=== PATIENT | male | born 1945 | race Caucasian/White ===

== ENCOUNTER 2019-01-04 05:35 | Emergency (ER) | payer OTHER ==
[~2019-01-04] VITALS: Ht 157.5 cm; Wt 68.0 kg
--- NOTE | 2019-01-04 06:07 | ED Integumentary General ---
General Chief Complaint: Skin/Wound Problems Stated Complaint: RT FOOT WOUND CHECK History of Present Illness Date Seen by Provider: Jan 04, 2019 Time Seen by Provider: 06:03 Initial Comments Patient is being taken care of by the general surgeon Dr. Meyers for a diabetic foot wound ulcer on the bottom of his foot. He says he was seen last week and a dressing was applied and it was wrapped quite tight and it has caused his foot. Painful over the weekend and he tried taking off the dressing this morning but was unable to get off as it was too tight. Even tried using scissors but was unable to get underneath the dressing. He is scheduled to follow with Dr. Meyers later this week and his wound care clinic. He denies worsening redness swelling fevers chills nausea vomiting or other systemic symptoms. Allergies and Home Medications Patient Home Medication List Home Medication List Reviewed: Yes Review of Systems Review of Systems Constitutional: No fever Skin: lesions Past Kwuxqdd-Wcomne-Hkqgfq Hx Patient Social History Alcohol Use: Denies Use Recreational Drug Use: No Smoking Status: Never a Smoker 2nd Hand Smoke Exposure: No Recent Foreign Travel: No Contact w/Someone Who Travel: No Recent Hopitalizations: No Physical Abuse: No Sexual Abuse: No Mistreated: No Fear: No Seasonal Allergies Seasonal Allergies: No Past Medical History Surgeries: Yes Cardiac: No Neurological: No Genitourinary: No Gastrointestinal: No Musculoskeletal: No Endocrine: Yes Diabetes, Insulin dep HEENT: No Cancer: No Psychosocial: No Integumentary: Yes (diabetic ulcers) Blood Disorders: No Adverse Reaction/Blood Tranf: No Physical Exam Vital Signs Capillary Refill : General Appearance: WD/WN, no apparent distress Skin: other (diabetic foot ulcer on the bottom of his foot appears to be healing well with no warmth or tenderness to palpation. No signs of fluctuance or signs of cellulitis.) Progress/Results/Core Measures Progress Progress Note : Progress Note Patient's foot was redressed with a looser dressing and he was told to follow Dr. Berry as scheduled but to go ahead and give Dr. Edmondson call today to let him know his issues and see if there is any more urgent follow-up needed or other recommendations. Patient aware and agreeable with plan patient was discharged in stable condition. Departure Impression Primary Impression: Diabetic foot ulcer Disposition: HOME, SELF-CARE Condition: Stable Departure-Patient Inst. Referrals: SUSAN MELENDREZ DO (PCP/Family) Primary Care Physician Patient Instructions: Diabetic Foot Ulcer (DC) CRISTOBAL BLACKMAN DO Jan 04, 2019 06:07
[2019-01-04 06:17] VITALS: BP 145/72
== END 2019-01-04 06:17 | disposition home or self-care (01) ==
LOC: EDUNIT# 05:35 → ER FS 05:39
DX: E11.621 Type 2 diabetes mellitus with foot ulcer (principal)

== ENCOUNTER 2019-05-24 09:01 | Emergency (ER) | payer MEDICARE, OTHER ==
[~2019-05-24] VITALS: Ht 162 cm; Wt 68.0 kg
--- NOTE | 2019-05-24 09:36 | ED General ---
General Chief Complaint: Skin/Wound Problems Stated Complaint: RT LEG SWELLING & PAIN Nursing Triage Note: PT HAS CHRONIC LEG EDEMA AND GETS HIS LEGS WRAPPED WEEKLY WITH DR HOFFMAN. HE HAS INCREASED EDEMA TO THE RIGHT LEG TODAY WITH EXTREMELY DRY SKIN FLAKES. PT IS ABLE TO AMBULATE WITHOUT DIFFICULTY. Nursing Sepsis Screen: No Definite Risk History of Present Illness Date Seen by Provider: May 24, 2019 Time Seen by Provider: 09:34 Initial Comments Patient presenting to emergency department for evaluation of right lower extremity swelling and erythema. He apparently has diabetes and has bad edema issues for which his legs get wrapped and he leaves the wrap on for weeks at a time until his providers can rewrap them. He was being evaluated this morning and was told to come here as his right lower extremity is more swollen and red than the left. He has erythema primarily on the proximal tibia as well as scaly wounds. The wrap appeared to be very tightly on possibly cutting off venous return. Patient denies any pain fevers chills nausea vomiting or other systemic symptoms. He says he is not short of breath or having any chest pain. He is currently on clindamycin for the past 2 weeks for a dental infection and he is going to be on it for one week more until he sees his dentist. Patient is in no obvious distress with normal vital signs. Allergies and Home Medications Home Medications Hydrocortisone Acetate 28 Gm Oint...g., 28 GM TP BID Prescribed by: CRISTOBAL BLACKMAN on 05/24/19 1010 Petrolatum,White 99 Gm Oint...g., 99 GM TP QID Prescribed by: CRISTOBAL BLACKMAN on 05/24/19 1010 Patient Home Medication List Home Medication List Reviewed: Yes Review of Systems Review of Systems Constitutional: no symptoms reported EENTM: no symptoms reported Respiratory: no symptoms reported Cardiovascular: edema Gastrointestinal: no symptoms reported Skin: dryness Psychiatric/Neurological: No Symptoms Reported All Other Systems Reviewed Negative Unless Noted: Yes Past Jffelhh-Cmmczi-Kcsgcq Hx Patient Social History Alcohol Use: Denies Use Recreational Drug Use: No 2nd Hand Smoke Exposure: No Recent Foreign Travel: No Contact w/Someone Who Travel: No Recent Infectious Disease Expo: No Recent Hopitalizations: No Physical Abuse: No Sexual Abuse: No Mistreated: No Fear: No Seasonal Allergies Seasonal Allergies: No Past Medical History Surgeries: Yes Cardiac: No Neurological: No Genitourinary: No Gastrointestinal: No Musculoskeletal: No Endocrine: Yes Diabetes, Insulin dep HEENT: No Cancer: No Psychosocial: No Integumentary: Yes (diabetic ulcers) Blood Disorders: No Adverse Reaction/Blood Tranf: No Physical Exam Vital Signs Vital Signs - First Documented 05/24/19 09:08 Temp 36.9 Pulse 75 Resp 18 B/P (MAP) 168/78 (108) Pulse Ox 100 O2 Delivery Room Air Capillary Refill : Less Than 3 Seconds Height, Weight, BMI Height: 5'2.00" Weight: 150lbs. oz. 68.406067qr; 25.00 BMI Method:Stated General Appearance: No Apparent Distress, WD/WN HEENT: Moist Mucous Membranes Neck: Supple Respiratory: Lungs Clear, No Respiratory Distress Cardiovascular: Regular Rate, Rhythm, Other (2-3+ RLE edema. Scaly, dry skin with mild erythema at proximal tib-fib. Not confluent, warm, or tender to palpation. More of a stasis dermatitis appearance. ) Gastrointestinal: Soft Back: Normal Inspection Extremity: Normal Capillary Refill, Normal Range of Motion, Non Tender, No Calf Tenderness, Other (2+ DP pulse BL) Neurologic/Psychiatric: Alert, Oriented x3, No Motor/Sensory Deficits Skin: Warm/Dry Progress/Results/Core Measures Suspected Sepsis Recent Fever Within 48 Hours: No Infection Criteria Present: None New/Unexplained Altered Menta: No Sepsis Screen: No Definite Risk SIRS Temperature: Pulse: 75 Respiratory Rate: 18 Blood Pressure 168 /78 Mean: 108 Results/Orders My Orders Orders - CRISTOBAL BLACKMAN DO Us Venous Lower Ext Rt (05/24/19 09:36) Vital Signs/I&O 05/24/19 09:08 Temp 36.9 Pulse 75 Resp 18 B/P (MAP) 168/78 (108) Pulse Ox 100 O2 Delivery Room Air Capillary Refill : Less Than 3 Seconds Blood Pressure Mean: 108 POS Progress Note : Progress Note I told patient that I would like to get an ultrasound to ensure this is not a DVT and he was initially okay with that the vp information technology came over and he refused. He says that he does not think it is a DVT as he feels much better after having his wrap removed and he would not like to have any further testing done but would like to be treated for the stasis dermatitis I told him about. He is already on clindamycin and I do not think this is a cellulitis based off appearance. I will have him continue elevating his legs wrapping it and applying liberal moisturizers and steroids to see if this helps his leg. I told him not to apply the wrapped too tight that it has to be tight enough to ensure venous return. Patient will be discharged in stable condition told to follow with primary care provider within 2 days to ensure improvement and come back to the ED sooner if worsening pain fevers shortness of breath or other general concerns. Patient aware and agreeable with plan and verbalized understanding of the above instructions. Departure Impression Primary Impression: Stasis dermatitis Qualified Codes: I87.2 - Venous insufficiency (chronic) (peripheral) Disposition: HOME, SELF-CARE Condition: Stable Departure-Patient Inst. Referrals: SUSAN MELENDREZ DO (PCP/Family) Primary Care Physician Scripts Hydrocortisone Acetate (Hydrocortisone) 28 Gm Oint...g. 28 GM TP BID for 14 Days, #2 TUBE Prov: CRISTOBAL BLACKMAN DO 05/24/19 Petrolatum,White (Aquaphor) 99 Gm Oint...g. 99 GM TP QID for 14 Days, #4 TUBE Prov: CRISTOBAL BLACKMAN DO 05/24/19 CRISTOBAL BLACKMAN DO May 24, 2019 09:36 POS
[2019-05-24] MEDS ORDERED: MINE99OI TP (10:10)
[2019-05-24] MEDS ORDERED: HYDR28OI2 TP (10:10)
[2019-05-24 10:27] VITALS: BP 114/68
== END 2019-05-24 10:27 | disposition home or self-care (01) ==
LOC: EDUNIT# 09:01 → ER FS 09:03
DX: I87.2 Venous insufficiency (chronic) (peripheral) (principal); E11.9 Type 2 diabetes mellitus without complications
CPT/HCPCS: 99282

== ENCOUNTER 2019-06-07 12:59 | Emergency (ER) | payer MEDICARE ==
[~2019-06-07] VITALS: Ht 175 cm; Wt 52.0 kg
[~2019-06-07 12:59] MED LIST: HYDR28OI2 TP; MINE99OI TP
--- NOTE | 2019-06-07 13:04 | ED Lower Extremity ---
General Stated Complaint: LEG SWELLING Source: patient Exam Limitations: no limitations History of Present Illness Date Seen by Provider: Jun 07, 2019 Time Seen by Provider: 13:03 Initial Comments 74-year-old male brought in with bilateral lower leg swelling. Patient has a history of venous stasis, and lymphedema. Comes in today because he is having some more swelling and some tenderness after his legs be in wrapped 2 days ago. He reports normally they go higher up to his knees but daily went to mid calf this time. He has no chest pain or significant acute changes. Patient reports that he is prescribed Lasix but has not been taking it. No other symptoms at this time Allergies and Home Medications Home Medications Hydrocortisone Acetate 28 Gm Oint...g., 28 GM TP BID Prescribed by: CRISTOBAL BLACKMAN on 05/24/19 1010 Petrolatum,White 99 Gm Oint...g., 99 GM TP QID Prescribed by: CRISTOBAL BLACKMAN on 05/24/19 1010 Patient Home Medication List Home Medication List Reviewed: Yes Review of Systems Constitutional: see HPI Respiratory: No cough Cardiovascular: No chest pain Gastrointestinal: No no symptoms reported Musculoskeletal: see HPI Skin: see HPI Past Ejphucm-Orgzug-Fhesvx Hx Past Med/Social Hx: Reviewed Nursing Past Med/Soc Hx Patient Social History 2nd Hand Smoke Exposure: No Recent Foreign Travel: Yes Recent Hopitalizations: No Seasonal Allergies Seasonal Allergies: No Past Medical History Surgeries: Yes Cardiac: No Neurological: No Genitourinary: No Gastrointestinal: No Musculoskeletal: No Endocrine: Yes Diabetes, Insulin dep HEENT: No Cancer: No Psychosocial: No Integumentary: Yes (diabetic ulcers) Blood Disorders: No Adverse Reaction/Blood Tranf: No Physical Exam Vital Signs Vital Signs - First Documented 06/07/19 13:00 Temp 37.3 Pulse 60 Resp 20 B/P (MAP) 145/70 (95) Pulse Ox 99 Capillary Refill : Height, Weight, BMI Height: 5'2.00" Weight: 150lbs. oz. 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, normal mood/affect, oriented x 3 Progress/Results/Core Measures Results/Orders Lab Results Laboratory Tests Test 06/07/19 13:23 Range/Units White Blood Count 5.9 4.3-11.0 10^3/uL Red Blood Count 3.05 L 4.35-5.85 10^6/uL Hemoglobin 9.9 L 13.3-17.7 G/DL Hematocrit 29 L 40-54 % Mean Corpuscular Volume 95 80-99 FL Mean Corpuscular Hemoglobin 32 25-34 PG Mean Corpuscular Hemoglobin Concent 34 32-36 G/DL Red Cell Distribution Width 14.3 10.0-14.5 % Platelet Count 246 130-400 10^3/uL Mean Platelet Volume 9.1 7.4-10.4 FL Neutrophils (%) (Auto) 77 H 42-75 % Lymphocytes (%) (Auto) 13 12-44 % Monocytes (%) (Auto) 7 0-12 % Eosinophils (%) (Auto) 3 0-10 % Basophils (%) (Auto) 0 0-10 % Neutrophils # (Auto) 4.5 1.8-7.8 X 10^3 Lymphocytes # (Auto) 0.8 L 1.0-4.0 X 10^3 Monocytes # (Auto) 0.4 0.0-1.0 X 10^3 Eosinophils # (Auto) 0.2 0.0-0.3 10^3/uL Basophils # (Auto) 0.0 0.0-0.1 10^3/uL Sodium Level 139 135-145 MMOL/L Potassium Level 4.8 3.6-5.0 MMOL/L Chloride Level 106 98-107 MMOL/L Carbon Dioxide Level 24 21-32 MMOL/L Anion Gap 9 5-14 MMOL/L Blood Urea Nitrogen 19 H 7-18 MG/DL Creatinine 1.62 H 0.60-1.30 MG/DL Estimat Glomerular Filtration Rate 42 BUN/Creatinine Ratio 12 Glucose Level 91 70-105 MG/DL Calcium Level 9.0 8.5-10.1 MG/DL Magnesium Level 2.1 1.6-2.4 MG/DL My Orders Orders - KITTY MORRIS DO Basic Metabolic Panel (06/07/19 13:04) Cbc With Automated Diff (06/07/19 13:04) Magnesium (06/07/19 13:04) Vital Signs/I&O 06/07/19 13:00 Temp 37.3 Pulse 60 Resp 20 B/P (MAP) 145/70 (95) Pulse Ox 99 Departure Impression Primary Impression: Stasis dermatitis Qualified Codes: I87.2 - Venous insufficiency (chronic) (peripheral) Additional Impressions: Peripheral edema Edema of both lower legs due to peripheral venous insufficiency Disposition: HOME, SELF-CARE Condition: Stable Departure-Patient Inst. Referrals: SUSAN MELENDREZ DO (PCP/Family) Primary Care Physician Patient Instructions: Dermatitis, Swelling, Dependent Edema (DC) Scripts Furosemide (Lasix) 40 Mg Tablet 40 MG PO DAILY, #5 TAB Prov: KITTY MORRIS DO 06/07/19 KITTY MORRIS DO Jun 07, 2019 13:03 POS
[2019-06-07 13:31] LABS: HEMATOCRIT 29 % (40-54); HEMOGLOBIN 9.9 G/DL (13.3-17.7); MEAN CORPUSCULAR HEMOGLOBIN 32 PG (25-34); MEAN CORPUSCULAR VOLUME 95 FL (80-99); WHITE BLOOD COUNT 5.9 10^3/uL (4.3-11.0)
[2019-06-07 13:32] LABS: BASOPHILS % (AUTO) 0 % (0-10); EOSINOPHILS % (AUTO) 3 % (0-10); LYMPHOCYTES % (AUTO) 13 % (12-44); MEAN CORPUSCULAR HGB CONC 34 G/DL (32-36); MEAN PLATELET VOLUME 9.1 FL (7.4-10.4); MONOCYTES % (AUTO) 7 % (0-12); NEUTROPHILS % (AUTO) 77 % (42-75); PLATELET COUNT 246 10^3/uL (130-400); RED CELL DISTRIBUTION WIDTH 14.3 % (10.0-14.5)
[2019-06-07 13:35] LABS: LYMPHOCYTES # (AUTO) 0.8 X 10^3 (1.0-4.0); MONOCYTES # (AUTO) 0.4 X 10^3 (0.0-1.0); NEUTROPHILS # (AUTO) 4.5 X 10^3 (1.8-7.8)
[2019-06-07 13:36] LABS: EOSINOPHILS # (AUTO) 0.2 10^3/uL (0.0-0.3)
[2019-06-07 13:58] LABS: CREATININE SERUM 1.62 MG/DL (0.60-1.30); MAGNESIUM 2.1 MG/DL (1.6-2.4); POTASSIUM 4.8 MMOL/L (3.6-5.0)
[2019-06-07] MEDS ORDERED: FURO-124 PO (14:09)
--- NOTE | 2019-06-07 14:30 | NUR ---
Bilateral lower legs wrapped with gauze and coban.
[2019-06-07 14:37] VITALS: BP 152/97
== END 2019-06-07 14:45 | disposition home or self-care (01) ==
LOC: EDUNIT# 12:59 → ER FS 13:00
DX: I87.2 Venous insufficiency (chronic) (peripheral) (principal); E11.622 Type 2 diabetes mellitus with other skin ulcer
CPT/HCPCS: 36415; 80048; 83735; 85025

== ENCOUNTER → 2020-05-04 | Outpatient (CLI) | payer MEDICARE ==
[~2020-05-04] MED LIST changes: +FURO-124 PO
[2020-05-04 12:01] LABS: BASOPHILS % (AUTO) 0 % (0-10); EOSINOPHILS # (AUTO) 0.2 10^3/uL (0.0-0.3); EOSINOPHILS % (AUTO) 4 % (0-10); HEMATOCRIT 36 % (40-54); HEMOGLOBIN 12.6 g/dL (13.3-17.7); LYMPHOCYTES % (AUTO) 17 % (12-44); MEAN CORPUSCULAR HEMOGLOBIN 33 pg (25-34); MEAN CORPUSCULAR HGB CONC 35 g/dL (32-36); MEAN CORPUSCULAR VOLUME 95 fL (80-99); MEAN PLATELET VOLUME 9.1 fL (9.0-12.2); MONOCYTES # (AUTO) 0.4 10^3/uL (0.0-1.0); MONOCYTES % (AUTO) 7 % (0-12); NEUTROPHILS # (AUTO) 4.2 10^3/uL (1.8-7.8); NEUTROPHILS % (AUTO) 72 % (42-75); PLATELET COUNT 178 10^3/uL (130-400); WHITE BLOOD COUNT 5.8 10^3/uL (4.3-11.0)
== END ==
LOC: WOUNDCARE 09:25
PROVIDERS: ATTEND Surgery
DX: I87.323 Chronic venous hypertension (idiopathic) with inflammation of bilateral lower extremity (principal); I70.203 Unspecified atherosclerosis of native arteries of extremities, bilateral legs; E11.42 Type 2 diabetes mellitus with diabetic polyneuropathy; M14.671 Charcot's joint, right ankle and foot; M14.672 Charcot's joint, left ankle and foot
CPT/HCPCS: 83036; 85025; G0463; 36415; 99213

== ENCOUNTER → 2020-05-15 | Outpatient (CLI) | payer MEDICARE | LOC: WOUNDCARE 11:59 | PROVIDERS: ATTEND Surgery | DX: I87.333 Chronic venous hypertension (idiopathic) with ulcer and inflammation of bilateral lower extremity (principal); E11.42 Type 2 diabetes mellitus with diabetic polyneuropathy; M14.671 Charcot's joint, right ankle and foot; M14.672 Charcot's joint, left ankle and foot; I70.203 Unspecified atherosclerosis of native arteries of extremities, bilateral legs | CPT/HCPCS: 99212 ==

== ENCOUNTER 2020-07-18 19:43 | Emergency (ER) | payer MEDICARE ==
[~2020-07-18] VITALS: Ht 154.9 cm; Wt 61.2 kg
[2020-07-18 20:12] LABS: HEMATOCRIT 36 % (40-54); HEMOGLOBIN 12.5 G/DL (13.3-17.7); LYMPHOCYTES % (AUTO) 16 % (12-44); MEAN CORPUSCULAR HEMOGLOBIN 32 PG (25-34); MEAN CORPUSCULAR HGB CONC 34 G/DL (32-36); MEAN CORPUSCULAR VOLUME 94 FL (80-99); MEAN PLATELET VOLUME 9.6 FL (7.4-10.4); MONOCYTES % (AUTO) 6 % (0-12); NEUTROPHILS % (AUTO) 76 % (42-75); PLATELET COUNT 237 10^3/uL (130-400); WHITE BLOOD COUNT 7.3 10^3/uL (4.3-11.0)
[2020-07-18 20:13] LABS: BASOPHILS % (AUTO) 0 % (0-10); EOSINOPHILS # (AUTO) 0.1 10^3/uL (0.0-0.3); EOSINOPHILS % (AUTO) 2 % (0-10); LYMPHOCYTES # (AUTO) 1.2 X 10^3 (1.0-4.0); MONOCYTES # (AUTO) 0.5 X 10^3 (0.0-1.0); NEUTROPHILS # (AUTO) 5.5 X 10^3 (1.8-7.8)
--- NOTE | 2020-07-18 20:22 | ED General ---
General Stated Complaint: LATHARGY History of Present Illness Date Seen by Provider: Jul 18, 2020 Time Seen by Provider: 19:45 Initial Comments 75-year-old male presents via EMS with complaint of decreased mental status. Second call of the day regarding this patient, initially several hours ago earlier this afternoon EMS called for the same reason. Patient's girlfriend had called and on arrival patient stated that he was fine and he didn't know developed the hospital and refuse transfer. The second call was for the same co mplaint decreased mental status, somnolence and concern of taking new medication "Celexa". Allergies and Home Medications Allergies Coded Allergies: Penicillins (Verified Allergy, Unknown, 07/18/20) Sulfa (Sulfonamide Antibiotics) (Verified Allergy, Unknown, 07/18/20) Home Medications Furosemide 40 Mg Tablet, 40 MG PO DAILY Prescribed by: KITTY MORRIS on 06/07/19 1409 Hydrocortisone Acetate 28 Gm Oint...g., 28 GM TP BID Prescribed by: CRISTOBAL BLACKMAN on 05/24/19 1010 Petrolatum,White 99 Gm Oint...g., 99 GM TP QID Prescribed by: CRISTOBAL BLACKMAN on 05/24/19 1010 Patient Home Medication List Home Medication List Reviewed: Yes Review of Systems Review of Systems Constitutional: no symptoms reported (unable to obtain ROS 2 to patient decreased MS on arrival) Past Cpdzlgn-Ktllbe-Zqmfbn Hx Past Med/Social Hx: Reviewed Nursing Past Med/Soc Hx Patient Social History 2nd Hand Smoke Exposure: No Recent Hopitalizations: No Seasonal Allergies Seasonal Allergies: No Past Medical History Surgeries: Yes Cardiac: No Neurological: No Genitourinary: No Gastrointestinal: No Musculoskeletal: No Endocrine: Yes Diabetes, Insulin dep HEENT: No Cancer: No Psychosocial: No Integumentary: Yes (diabetic ulcers) Blood Disorders: No Adverse Reaction/Blood Tranf: No Physical Exam Vital Signs Vital Signs - First Documented 07/18/20 19:43 Temp 37.1 Pulse 54 Resp 14 B/P (MAP) 137/58 (84) Pulse Ox 99 O2 Delivery Room Air Capillary Refill : Height, Weight, BMI Height: 5'2.00" Weight: 150lbs. oz. 68.973988ap; 16.00 BMI Method:Stated General Appearance: No Apparent Distress, WD/WN, Other (somnulent, arousable) HEENT: PERRL/EOMI, Normal ENT Inspection Neck: Non Tender, Supple Respiratory: Chest Non Tender, Lungs Clear, Normal Breath Sounds Cardiovascular: Regular Rate, Rhythm, No Edema, No Gallop, No JVD Gastrointestinal: Non Tender, Soft, Hernia (large inguinal hernia- left) Back: Normal Inspection, No CVA Tenderness, No Vertebral Tenderness Extremity: Normal Capillary Refill, Non Tender, Swelling (chronic edema b/l LE's) Neurologic/Psychiatric: No Motor/Sensory Deficits, Other (decreased MS, s omnulent but arousable. Eventually answers all questions and is without significant complaint) Focused Exam Lactate Level 07/18/20 20:00: Lactic Acid Level 1.10 Lactic Acid Level Laboratory Tests Test 07/18/20 20:00 Lactic Acid Level 1.10 MMOL/L (0.50-2.00) Progress/Results/Core Measures Suspected Sepsis SIRS Temperature: Pulse: Respiratory Rate: Laboratory Tests 07/18/20 20:00: White Blood Count 7.3 Blood Pressure / Mean: 07/18/20 20:00: Lactic Acid Level 1.10 Laboratory Tests 07/18/20 20:00: Creatinine 3.24H, Platelet Count 237, Total Bilirubin 2.3H Results/Orders Lab Results Laboratory Tests Test 07/18/20 20:00 07/18/20 20:18 Range/Units White Blood Count 7.3 4.3-11.0 10^3/uL Red Blood Count 3.88 L 4.35-5.85 10^6/uL Hemoglobin 12.5 L 13.3-17.7 G/DL Hematocrit 36 L 40-54 % Mean Corpuscular Volume 94 80-99 FL Mean Corpuscular Hemoglobin 32 25-34 PG Mean Corpuscular Hemoglobin Concent 34 32-36 G/DL Red Cell Distribution Width 12.9 10.0-14.5 % Platelet Count 237 130-400 10^3/uL Mean Platelet Volume 9.6 7.4-10.4 FL Immature Granulocyte % (Auto) 0 % Neutrophils (%) (Auto) 76 H 42-75 % Lymphocytes (%) (Auto) 16 12-44 % Monocytes (%) (Auto) 6 0-12 % Eosinophils (%) (Auto) 2 0-10 % Basophils (%) (Auto) 0 0-10 % Neutrophils # (Auto) 5.5 1.8-7.8 X 10^3 Lymphocytes # (Auto) 1.2 1.0-4.0 X 10^3 Monocytes # (Auto) 0.5 0.0-1.0 X 10^3 Eosinophils # (Auto) 0.1 0.0-0.3 10^3/uL Basophils # (Auto) 0.0 0.0-0.1 10^3/uL Immature Granulocyte # (Auto) 0.0 0.0-0.1 10^3/uL Sodium Level 139 135-145 MMOL/L Potassium Level 4.9 3.6-5.0 MMOL/L Chloride Level 101 98-107 MMOL/L Carbon Dioxide Level 24 21-32 MMOL/L Anion Gap 14 5-14 MMOL/L Blood Urea Nitrogen 44 H 7-18 MG/DL Creatinine 3.24 H 0.60-1.30 MG/DL Estimat Glomerular Filtration Rate 19 BUN/Creatinine Ratio 14 Glucose Level 119 H 70-105 MG/DL Lactic Acid Level 1.10 0.50-2.00 MMOL/L Calcium Level 9.4 8.5-10.1 MG/DL Corrected Calcium 9.2 8.5-10.1 MG/DL Total Bilirubin 2.3 H 0.1-1.0 MG/DL Aspartate Amino Transf (AST/SGOT) 15 5-34 U/L Alanine Aminotransferase (ALT/SGPT) 10 0-55 U/L Alkaline Phosphatase 75 40-136 U/L Total Protein 7.0 6.4-8.2 GM/DL Albumin 4.2 3.2-4.5 GM/DL Serum Alcohol < 10 <10 MG/DL Urine Color YELLOW Urine Clarity CLEAR Urine pH 5.0 5-9 Urine Specific [place] 1.025 H 1.016-1.022 Urine Protein NEGATIVE NEGATIVE Urine Glucose (UA) NEGATIVE NEGATIVE Urine Ketones NEGATIVE NEGATIVE Urine Nitrite NEGATIVE NEGATIVE Urine Bilirubin NEGATIVE NEGATIVE Urine Urobilinogen 0.2 < = 1.0 MG/DL Urine Leukocyte Esterase NEGATIVE NEGATIVE Urine RBC (Auto) TRACE H NEGATIVE Urine RBC RARE /HPF Urine WBC NONE /HPF Urine Crystals PRESENT H /LPF Urine Amorphous Sediment FEW IRMA URATES H /LPF Urine Bacteria NONE /HPF Urine Casts PRESENT /LPF Urine Hyaline Casts 5-10 H /LPF Urine Mucus NEGATIVE /LPF Urine Culture Indicated NO Urine Opiates Screen NEGATIVE NEGATIVE Urine Oxycodone Screen NEGATIVE NEGATIVE Urine Methadone Screen NEGATIVE NEGATIVE Urine Propoxyphene Screen NEGATIVE NEGATIVE Urine Barbiturates Screen NEGATIVE NEGATIVE Ur Tricyclic Antidepressants Screen NEGATIVE NEGATIVE Urine Phencyclidine Screen NEGATIVE NEGATIVE Urine Amphetamines Screen NEGATIVE NEGATIVE Urine Methamphetamines Screen NEGATIVE NEGATIVE Urine Benzodiazepines Screen NEGATIVE NEGATIVE Urine Cocaine Screen NEGATIVE NEGATIVE Urine Cannabinoids Screen NEGATIVE NEGATIVE My Orders Orders - ROVENSTINE,ELIGIO L DO Ed Iv/Invasive Line Start (07/18/20 19:55) Blood Culture (07/18/20 19:55) Alcohol (07/18/20 19:55) Cbc With Automated Diff (07/18/20 19:55) Comprehensive Metabolic Panel (07/18/20 19:55) Urinalysis (07/18/20 19:55) Drug Screen Stat (Urine) (07/18/20 19:55) Lactic Acid Analyzer (07/18/20 19:55) Chest 1 View Ap/Pa Only (07/18/20 19:55) Ekg Tracing (07/18/20 19:55) Ct Head Wo (07/18/20 19:55) [place] Cath (07/18/20 20:38) Vital Signs/I&O 07/18/20 19:43 Temp 37.1 Pulse 54 Resp 14 B/P (MAP) 137/58 (84) Pulse Ox 99 O2 Delivery Room Air Capillary Refill : Progress Note : Progress Note patient's GF wanted to transfer to [place], but no beds available and [place] also with limited availability. Talked to Dr Nuñez who accepts for admission w avail bed at [facility]. Patient does not need dialysis. ECG Initial ECG Impression Date: Jul 18, 2020 Initial ECG Impression Time: 19:55 Initial ECG Rhythm: Normal Sinus Initial ECG Intervals: Normal Diagnostic Imaging Diagonstic Imaging: CT Comments NDICATION: Altered mental status. Confusion. FINDINGS: There is generalized cortical atrophy. Ventricles are slightly prominent consistent with atrophic changes. There are diffuse periventricular white matter changes. No evidence of intracranial hemorrhage. No extra-axial fluid collection. Basal cisterns are clear. There is no mass effect. The mastoid air cells and paranasal sinuses are clear. No calvarial fractures. IMPRESSION: Diffuse atrophy with white matter changes consistent with chronic small vessel disease. Dictated on workstation # [id number] Dict: 07/18/202043 Trans: 07/18/202045 [facility] [id number] Interpreted by: DIANN JACKSON MD Electronically signed by: FINDINGS: Portable chest. The lungs are well-aerated and clear. There is no air-trapping. The heart is upper limits of normal. There is no evidence of pulmonary edema. No pneumothorax or pleural effusions. No bony abnormalities. IMPRESSION: Mild cardiac enlargement with no acute changes noted. Dictated on workstation # [id number] Dict: 07/18/202044 Trans: 07/18/202046 [facility] [phone] Interpreted by: DIANN JACKSON MD Electronically signed by: Departure Impression Primary Impression: Altered mental state Qualified Codes: R41.82 - Altered mental status, unspecified Additional Impressions: Acute renal failure (ARF) Qualified Codes: N17.9 - Acute kidney failure, unspecified Dehydration Disposition: 02 XFER [facility] HOSP ([place]) Condition: Stable Transfer Transfer Reason: Diversion Time Spoke to Accepting Phy: 21:10 Transfer Progress Notes spoke to Dr Nuñez who accepts for transfer to [facility]......limited beds at other facilities. Departure-Patient Inst. Referrals: SUSAN MELENDREZ DO (PCP/Family) Primary Care Physician ELIGIO AVILA DO Jul 18, 2020 20:22
[2020-07-18 20:28] LABS: ALKALINE PHOSPHATASE 75 U/L (40-136); BILIRUBIN,TOTAL 2.3 MG/DL (0.1-1.0); BUN/CREATININE RATIO 14; CALCIUM 9.4 MG/DL (8.5-10.1); CARBON DIOXIDE 24 MMOL/L (21-32); CHLORIDE 101 MMOL/L (98-107); CREATININE SERUM 3.24 MG/DL (0.60-1.30); GFR ESTIMATED 19; GLUCOSE 119 MG/DL (70-105); POTASSIUM 4.9 MMOL/L (3.6-5.0); SODIUM 139 MMOL/L (135-145)
[2020-07-18 20:29] LABS: ALANINE AMINOTRANSFERASE 10 U/L (0-55); ALBUMIN 4.2 GM/DL (3.2-4.5)
[2020-07-18 20:38] LABS: AMORPHOUS SEDIMENT,UR FEW AMOR URATES /LPF; BILIRUBIN,URINE NEGATIVE (NEGATIVE); CLARITY,URINE CLEAR; COLOR,URINE YELLOW; GLUCOSE, URINE (UA) NEGATIVE (NEGATIVE); KETONES,URINE NEGATIVE (NEGATIVE); LEUKOCYTE ESTERASE ,URINE NEGATIVE (NEGATIVE); NITRITE,URINE NEGATIVE (NEGATIVE); PROTEIN,URINE NEGATIVE (NEGATIVE); RBC,URINE RARE /HPF
[2020-07-18 20:39] LABS: AMPHETAMINE SCREEN, URINE NEGATIVE (NEGATIVE); BARBITURATE SCREEN URINE NEGATIVE (NEGATIVE); BENZODIAZEPINES SCREEN URINE NEGATIVE (NEGATIVE); CANNABINOID SCREEN, URINE NEGATIVE (NEGATIVE); COCAINE SCREEN URINE NEGATIVE (NEGATIVE); METHADONE STAT NEGATIVE (NEGATIVE); METHAMPHETAMINE SCREEN URINE S NEGATIVE (NEGATIVE); OPIATE SCREEN URINE NEGATIVE (NEGATIVE); OXYCODONE STAT NEGATIVE (NEGATIVE); PROPOXYPHENE STAT NEGATIVE (NEGATIVE); TRICYCLIC ANTIDEPRESSANTS SCRE NEGATIVE (NEGATIVE)
--- NOTE | 2020-07-18 20:46 | Diagnostic Imaging Report ---
PROCEDURE: CT head without contrast. TECHNIQUE: Multiple contiguous axial images were obtained through the brain without the use of intravenous contrast. Auto Exposure Controls were utilized during the CT exam to meet ALARA standards for radiation dose reduction. INDICATION: Altered mental status. Confusion. FINDINGS: There is generalized cortical atrophy. Ventricles are slightly prominent consistent with atrophic changes. There are diffuse periventricular white matter changes. No evidence of intracranial hemorrhage. No extra-axial fluid collection. Basal cisterns are clear. There is no mass effect. The mastoid air cells and paranasal sinuses are clear. No calvarial fractures. IMPRESSION: Diffuse atrophy with white matter changes consistent with chronic small vessel disease. Dictated by: Dictated on workstation # [id number]
--- NOTE | 2020-07-18 20:47 | Diagnostic Imaging Report ---
INDICATION: Altered mental status. FINDINGS: Portable chest. The lungs are well-aerated and clear. There is no air-trapping. The heart is upper limits of normal. There is no evidence of pulmonary edema. No pneumothorax or pleural effusions. No bony abnormalities. IMPRESSION: Mild cardiac enlargement with no acute changes noted. Dictated by: Dictated on workstation # [id number]
[2020-07-18] MEDS ORDERED: NS IV 1000 ML 1,000 ML IV SCH (21:15)
[2020-07-18 22:26] VITALS: BP 114/53
== END 2020-07-18 22:26 | disposition short-term general hospital (02) ==
LOC: ER FS 19:43 → EDUNIT# 19:43 → ER FS 22:26
DX: R41.82 Altered mental status, unspecified (principal); N17.9 Acute kidney failure, unspecified; E86.0 Dehydration; R60.0 Localized edema; E11.9 Type 2 diabetes mellitus without complications; Z79.4 Long term (current) use of insulin; Z86.31 Personal history of diabetic foot ulcer; Z88.0 Allergy status to penicillin; Z88.2 Allergy status to sulfonamides
CPT/HCPCS: 36415; 51702; 70450; 71045; 80053; 80306; 81000; 83605; 85025; 87040; 93005; 99284; G0480; 80320

== ENCOUNTER 2020-11-03 11:03 | Emergency (ER) | payer MEDICARE ==
[~2020-11-03] VITALS: Ht 162.5 cm; Wt 63.5 kg
--- NOTE | 2020-11-03 11:14 | ED General ---
General Stated Complaint: VOMITING; TOE WOUND; AMS; LETHARGY History of Present Illness Date Seen by Provider: Nov 03, 2020 Time Seen by Provider: 11:05 Initial Comments 75-year-old male arrives by EMS..... They were called because he was on his couch and could not get up and stated that he had soiled himself. On arrival he was on his couch he had vomited and had a bowel movement and was too weak to stand up. Brought for evaluation for weakness. Also some concerns from the landlord at the building where he lives independently in an apartment stating that he has been threatening to others that he was going to shoot them and he does have guns in his home. He is without complaint on arrival Allergies and Home Medications Allergies Coded Allergies: Penicillins (Verified Allergy, Unknown, 07/18/20) Sulfa (Sulfonamide Antibiotics) (Verified Allergy, Unknown, 07/18/20) Home Medications Furosemide 40 Mg Tablet, 40 MG PO DAILY Prescribed by: KITTY MORRIS on 06/07/19 1409 Hydrocortisone Acetate 28 Gm Oint...g., 28 GM TP BID Prescribed by: CRISTOBAL BLACKMAN on 05/24/19 1010 Petrolatum,White 99 Gm Oint...g., 99 GM TP QID Prescribed by: CRISTOBAL BLACKMAN on 05/24/19 1010 Patient Home Medication List Home Medication List Reviewed: Yes Review of Systems Review of Systems Constitutional: No dizziness, No fever, No malaise; weakness Respiratory: No cough, No short of breath Cardiovascular: No chest pain; edema (chronic LE edema); No syncope Gastrointestinal: No abdominal pain, No constipation, No loss of appetite; nausea, vomiting Musculoskeletal: No back pain, No joint pain Skin: No change in color, No rash Psychiatric/Neurological: Denies Numbness, Denies Paresthesia; Weakness Past Mefgwrl-Uudszr-Qetvsg Hx Past Med/Social Hx: Reviewed Nursing Past Med/Soc Hx Patient Social History 2nd Hand Smoke Exposure: No Recent Hopitalizations: No Seasonal Allergies Seasonal Allergies: No Past Medical History Surgeries: Yes Respiratory: No Cardiac: No Neurological: No Genitourinary: Yes (Hernia in the scrotum) Renal Failure Gastrointestinal: No Musculoskeletal: No Endocrine: Yes Diabetes, Insulin dep HEENT: No Cancer: No Psychosocial: No Integumentary: Yes (diabetic ulcers) Blood Disorders: No Adverse Reaction/Blood Tranf: No Physical Exam Vital Signs Vital Signs - First Documented 11/03/20 11:16 Temp 36.8 Pulse 68 Resp 18 B/P (MAP) 167/83 (111) Pulse Ox 98 O2 Delivery Room Air Capillary Refill : Height, Weight, BMI Height: 5'2.00" Weight: 150lbs. oz. 68.811499wv; 25.00 BMI Method:Stated General Appearance: No Apparent Distress, WD/WN, Other (disheveled and smells due to poor hygiene.) Eyes: Bilateral Eye Normal Inspection, Bilateral Eye PERRL, Bilateral Eye EOMI HEENT: PERRL/EOMI, Normal ENT Inspection Neck: Full Range of Motion, Non Tender, Supple Respiratory: Chest Non Tender, Lungs Clear, Normal Breath Sounds, No Accessory Muscle Use, No Respiratory Distress Cardiovascular: Regular Rate, Rhythm, No JVD, Other (chronic LE lymphedema) Gastrointestinal: Normal Bowel Sounds, Non Tender, Soft Back: Normal Inspection, No CVA Tenderness Neurologic/Psychiatric: Alert, Oriented x3, No Motor/Sensory Deficits, Normal Mood/Affect, diamond sizer II-XII Norm as Tested Skin: Normal Color, Warm/Dry Focused Exam Lactate Level 11/03/20 11:20: Lactic Acid Level 1.24 Lactic Acid Level Laboratory Tests Test 11/03/20 11:20 Lactic Acid Level 1.24 MMOL/L (0.50-2.00) Progress/Results/Core Measures Suspected Sepsis SIRS Temperature: Pulse: Respiratory Rate: Laboratory Tests 11/03/20 11:20: White Blood Count 15.7H Blood Pressure / Mean: 11/03/20 11:20: Lactic Acid Level 1.24 Laboratory Tests 11/03/20 11:20: Creatinine 2.13H, Platelet Count 147, Total Bilirubin 2.3H Results/Orders Lab Results Laboratory Tests Test 11/03/20 11:20 Range/Units White Blood Count 15.7 H 4.3-11.0 10^3/uL Red Blood Count 3.82 L 4.35-5.85 10^6/uL Hemoglobin 12.7 L 13.3-17.7 G/DL Hematocrit 36 L 40-54 % Mean Corpuscular Volume 94 80-99 FL Mean Corpuscular Hemoglobin 33 25-34 PG Mean Corpuscular Hemoglobin Concent 35 32-36 G/DL Red Cell Distribution Width 13.2 10.0-14.5 % Platelet Count 147 130-400 10^3/uL Mean Platelet Volume 9.5 7.4-10.4 FL Immature Granulocyte % (Auto) 1 % Neutrophils (%) (Auto) 93 H 42-75 % Lymphocytes (%) (Auto) 2 L 12-44 % Monocytes (%) (Auto) 4 0-12 % Eosinophils (%) (Auto) 0 0-10 % Basophils (%) (Auto) 0 0-10 % Neutrophils # (Auto) 14.6 H 1.8-7.8 X 10^3 Lymphocytes # (Auto) 0.4 L 1.0-4.0 X 10^3 Monocytes # (Auto) 0.6 0.0-1.0 X 10^3 Eosinophils # (Auto) 0.0 0.0-0.3 10^3/uL Basophils # (Auto) 0.0 0.0-0.1 10^3/uL Immature Granulocyte # (Auto) 0.1 0.0-0.1 10^3/uL Neutrophils % (Manual) 74 % Lymphocytes % (Manual) 5 % Monocytes % (Manual) 3 % Band Neutrophils 18 % Blood Morphology Comment NORMAL Sodium Level 140 135-145 MMOL/L Potassium Level 4.8 3.6-5.0 MMOL/L Chloride Level 106 98-107 MMOL/L Carbon Dioxide Level 23 21-32 MMOL/L Anion Gap 11 5-14 MMOL/L Blood Urea Nitrogen 40 H 7-18 MG/DL Creatinine 2.13 H 0.60-1.30 MG/DL Estimat Glomerular Filtration Rate 30 BUN/Creatinine Ratio 19 Glucose Level 168 H 70-105 MG/DL Lactic Acid Level 1.24 0.50-2.00 MMOL/L Calcium Level 9.2 8.5-10.1 MG/DL Corrected Calcium 9.0 8.5-10.1 MG/DL Total Bilirubin 2.3 H 0.1-1.0 MG/DL Aspartate Amino Transf (AST/SGOT) 20 5-34 U/L Alanine Aminotransferase (ALT/SGPT) 10 0-55 U/L Alkaline Phosphatase 75 40-136 U/L Troponin I < 0.30 <0.30 NG/ML Total Protein 7.2 6.4-8.2 GM/DL Albumin 4.2 3.2-4.5 GM/DL Serum Alcohol < 10 <10 MG/DL My Orders Orders - MARGARITAELIGIO L DO Ed Iv/Invasive Line Start (11/03/20 11:25) Urinalysis (11/03/20 11:25) Chest 1 View Ap/Pa Only (11/03/20 11:25) Troponin I Fs (11/03/20 11:25) Cbc With Automated Diff (11/03/20 11:25) Comprehensive Metabolic Panel (11/03/20 11:25) Lactic Acid Analyzer (11/03/20 11:25) Alcohol (11/03/20 11:25) Ns Iv 1000 Ml (Sodium Chloride 0.9%) (11/03/20 11:30) Manual Differential (11/03/20 11:20) Vital Signs/I&O 11/03/20 11:16 Temp 36.8 Pulse 68 Resp 18 B/P (MAP) 167/83 (111) Pulse Ox 98 O2 Delivery Room Air Capillary Refill : Progress Note : Progress Note Went to discuss possible admission of patient for long-term placement as patient was unable to get up, being the reason for his ER visit. He states, "now I feel fine" and wants to go home. Patient given a trial to walk with a walker in the hallway and was able to get up from the bed use a walker out of the room intermediate down the hallway turn himself around and go back to the room without any difficulty. Determined he is able to get up and care for himself. Patient shows normal cognition with normal speech, conversation and reasoning. Date of Exam:11/03/20 CHEST 1 VIEW AP/PA ONLY INDICATION: Mental status change. Portable chest at 11:30 a.m. Heart size and pulmonary vascularity are normal. Lungs are clear. There are no effusions or pneumothoraces. IMPRESSION: Negative chest. Dictated by: Dictated on workstation # [id number] Dict: 11/03/20 1145 Trans: 11/03/20 1202 [facility] [id number] Interpreted by: EVELINA FONTANEZ MD Electronically signed by: EVELINA FONTANEZ MD 11/03/20 1202 Departure Impression Primary Impression: Weakness Additional Impressions: Physical debility CRF (chronic renal failure) Qualified Codes: N18.9 - Chronic kidney disease, unspecified Disposition: HOME, SELF-CARE Condition: Improved Departure-Patient Inst. Decision time for Depature: 13:01 Referrals: SUSAN MELENDREZ DO (PCP/Family) Primary Care Physician Patient Instructions: Chronic Kidney Disease (DC), Weakness ED Add. Discharge Instructions: Call Dr Melendrez to schedule a follow up appointment next week. Call 911 if your are in any trouble and unable to get up. You may need daily home health care or eventually assisted living arrangement. Scripts Ondansetron (Ondansetron Odt) 4 Mg Tab.rapdis 4 MG PO TID for Nausea, #10 TAB Prov: ELIGIO AVILA DO 11/03/20 ELIGIO AVILA DO Nov 03, 2020 11:13
[2020-11-03] MEDS ORDERED: NS IV 1000 ML 1,000 ML IV SCH (11:30)
--- NOTE | 2020-11-03 11:47 | Diagnostic Imaging Report ---
INDICATION: Mental status change. Portable chest at 11:30 a.m. Heart size and pulmonary vascularity are normal. Lungs are clear. There are no effusions or pneumothoraces. IMPRESSION: Negative chest. Dictated by: Dictated on workstation # [id number]
[2020-11-03 11:55] LABS: BASOPHILS % (AUTO) 0 % (0-10); EOSINOPHILS % (AUTO) 0 % (0-10); HEMATOCRIT 36 % (40-54); HEMOGLOBIN 12.7 G/DL (13.3-17.7); LYMPHOCYTES # (AUTO) 0.4 X 10^3 (1.0-4.0); LYMPHOCYTES % (AUTO) 2 % (12-44); MEAN CORPUSCULAR HEMOGLOBIN 33 PG (25-34); MEAN CORPUSCULAR HGB CONC 35 G/DL (32-36); MEAN CORPUSCULAR VOLUME 94 FL (80-99); MEAN PLATELET VOLUME 9.5 FL (7.4-10.4); MONOCYTES # (AUTO) 0.6 X 10^3 (0.0-1.0); MONOCYTES % (AUTO) 4 % (0-12); NEUTROPHILS # (AUTO) 14.6 X 10^3 (1.8-7.8); NEUTROPHILS % (AUTO) 93 % (42-75); PLATELET COUNT 147 10^3/uL (130-400); WHITE BLOOD COUNT 15.7 10^3/uL (4.3-11.0)
[2020-11-03 12:05] LABS: CARBON DIOXIDE 23 MMOL/L (21-32); CHLORIDE 106 MMOL/L (98-107); POTASSIUM 4.8 MMOL/L (3.6-5.0); SODIUM 140 MMOL/L (135-145)
[2020-11-03 12:06] LABS: ALANINE AMINOTRANSFERASE 10 U/L (0-55); ALBUMIN 4.2 GM/DL (3.2-4.5); ALKALINE PHOSPHATASE 75 U/L (40-136); BILIRUBIN,TOTAL 2.3 MG/DL (0.1-1.0); BUN/CREATININE RATIO 19; CALCIUM 9.2 MG/DL (8.5-10.1); CREATININE SERUM 2.13 MG/DL (0.60-1.30); GFR ESTIMATED 30; GLUCOSE 168 MG/DL (70-105); TOTAL PROTEIN 7.2 GM/DL (6.4-8.2)
[2020-11-03 12:14] LABS: BAND NEUTROPHILS 18 %; LYMPHOCYTES % (MANUAL) 5 %; MONOCYTES % (MANUAL) 3 %; NEUTROPHILS % (MANUAL) 74 %; RBC MORPH NORMAL
[2020-11-03] MEDS ORDERED: ONDA4TAB11 PO (13:05)
[2020-11-03 13:07] VITALS: BP 167/77
== END 2020-11-03 13:07 | disposition home or self-care (01) ==
LOC: EDUNIT# 11:03 → ER FS 11:04
DX: R53.1 Weakness (principal); R53.81 Other malaise; E11.22 Type 2 diabetes mellitus with diabetic chronic kidney disease; N18.9 Chronic kidney disease, unspecified; Z88.0 Allergy status to penicillin; Z88.2 Allergy status to sulfonamides
CPT/HCPCS: 36415; 71045; 80053; 83605; 84484; 85007; 85027; 99284; G0480; 80320

== ENCOUNTER → 2021-02-08 | Outpatient (CLI) | payer MEDICARE ==
[~2021-02-08] MED LIST changes: +ONDA4TAB11 PO
--- NOTE | 2021-02-08 14:34 | Diagnostic Imaging Report ---
PROCEDURE: CT head without contrast. TECHNIQUE: Multiple contiguous axial images were obtained through the brain without the use of intravenous contrast. Auto Exposure Controls were utilized during the CT exam to meet ALARA standards for radiation dose reduction. INDICATION: Fall, hitting the back of the head. CORRELATION is made with prior head CT from 07/18/2020. Ventricular size and sulcal pattern remains stable and consistent with cerebral atrophy. There is periventricular hypodensity noted consistent with chronic microvascular ischemia. No sulcal effacement or midline shift is identified. No acute intra-axial or extra-axial hemorrhage is detected. Cisterns are patent. Visualized paranasal sinuses are clear. IMPRESSION: Chronic changes, stable since 07/18/2020. No acute intracranial process is detected. Dictated by: Dictated on workstation # [id number]
--- NOTE | 2021-02-08 16:11 | Diagnostic Imaging Report ---
INDICATION: Fall, pelvic pain A single view of the pelvis shows no fracture, dislocation or other acute bony abnormality. The sacroiliac joints and symphysis pubis are not widened. There are bowel loops projected over the left lower ischial region consistent with a left-sided inguinal hernia. IMPRESSION: Left-sided inguinal hernia containing a loop of bowel. No acute bony abnormality is evident. Dictated by: Dictated on workstation # [id number]
== END ==
LOC: RAD FS 13:57
PROVIDERS: ATTEND Nurse Practitioner Family
DX: K40.90 Unilateral inguinal hernia, without obstruction or gangrene, not specified as recurrent (principal); W19.XXXA Unspecified fall, initial encounter
CPT/HCPCS: 70450; 72170

== ENCOUNTER 2021-04-10 07:45 | Emergency (ER) | payer MEDICARE ==
[~2021-04-10] VITALS: Ht 177 cm; Wt 65.0 kg
[~2021-04-10 07:45] MED LIST changes: +AMLO-251 PO; +CITA20TA9 PO; +CLN.1T PO; +METO2.5T PO; +POTA10TA PO
--- NOTE | 2021-04-10 08:03 | ED Fall/Injury ---
General Chief Complaint: Back Problems Stated Complaint: LWR BACK PAIN Nursing Triage Note: PT FELL THIS AM AND HIT HIS RIGHT UPPER BACK AND SHOULDER ON THE FLOOR. CHRONIC FALLS AND EMS GOES OVER FOR LIFT ASSISTS OFTEN. Source: patient, EMS Exam Limitations: no limitations History of Present Illness Date Seen by Provider: Apr 10, 2021 Time Seen by Provider: 07:45 Initial Comments 76-year-old male with past medical history of diabetes, hypertension, dementia coming in via EMS after a fall at home. He does not fall and frequently, typically uses a cane for assistance. Says he got tripped up and fell backwards hitting the back of his head and right shoulder. Complaining of moderate, con stant sharp pain worse in his right shoulder better when he is not moving and worse with movement. Has not taken any medications. He had one episode of nonbloody nonbilious emesis after falling and has not had any since. Is not currently nauseous. Denies taking any blood thinners. Says he has been eating and drinking normally. Denies any chest pain, shortness of breath, abdominal pain, current nausea, diarrhea, dysuria, urinary frequency, focal weakness or numbness, vision changes, or any other concerns. EMS started an IV and given 1 L of IV fluids Allergies and Home Medications Allergies Coded Allergies: Penicillins (Verified Allergy, Unknown, 07/18/20) Sulfa (Sulfonamide Antibiotics) (Verified Allergy, Unknown, 07/18/20) Patient Home Medication List Home Medication List Reviewed: Yes Amlodipine Besylate (Amlodipine Besylate) 10 Mg Tablet, 10 MG PO DAILY Prescribed by: TOBY RIBERA on 02/21/21 0931 Citalopram Hydrobromide (Citalopram HBr) 20 Mg Tablet, 20 MG PO DAILY, (Repo rted) Entered as Reported by: MOY HUDDLESTON on 02/19/21 1624 Review of Systems Review of Systems Constitutional: No chills, No fever Eyes: Denies Blurred Vision Ears, Nose, Mouth, Throat: denies epistaxis, denies throat pain Cardiovascular: No chest pain, No palpitations Gastrointestinal: No abdominal pain, No constipation, No diarrhea, No nausea; vomiting Genitourinary: No dysuria Musculoskeletal: back pain, joint pain Skin: No rash Psychiatric/Neurological: No Symptoms Reported All Other Systems Reviewed Negative Unless Noted: Yes Past Kzhrdxo-Xhhlgy-Qmttwo Hx Patient Social History Tobacco Use?: No Use of E-Cig and/or Vaping dev: No Substance use?: No Alcohol Use?: No Pt feels they are or have been: No Seasonal Allergies Seasonal Allergies: No Past Medical History Surgeries: Yes Respiratory: No Cardiac: No Hypertension Neurological: No Genitourinary: Yes (Hernia in the scrotum) Renal Failure Gastrointestinal: No Musculoskeletal: No Endocrine: Yes Diabetes, Insulin dep HEENT: No Cancer: No Psychosocial: No Integumentary: Yes (diabetic ulcers) Blood Disorders: No Adverse Reaction/Blood Tranf: No Family Medical History No Pertinent Family Hx Physical Exam Vital Signs Vital Signs - First Documented 04/10/21 07:45 Temp 36.7 Pulse 73 Resp 18 B/P (MAP) 154/66 (95) Pulse Ox 98 O2 Delivery Room Air Capillary Refill : Less Than 3 Seconds Height, Weight, BMI Height: 5'2.00" Weight: 150lbs. oz. 68.958723hi; 20.00 BMI Method:Stated General Appearance: WD/WN, no apparent distress HEENT: PERRL/EOMI, normal ENT inspection, TMs normal, pharynx normal, other (Tongue and lips are dry) Neck: full range of motion, supple, normal inspection, other (very mild paraspinal tenderness cervical and thoracic) Cardiovascular: regular rate, rhythm, no edema, no gallop, no JVD, no murmur Respiratory: chest non-tender, lungs clear, normal breath sounds, no respiratory distress, no accessory muscle use Gastrointestinal: normal bowel sounds, non tender, soft; No distended, No guarding, No rebound Back: normal inspection, no CVA tenderness, no vertebral tenderness, other (paravertebral tenderness thoracic) Extremities: normal range of motion, normal inspection, no calf tenderness, normal capillary refill, other (pain with aROM of R shoulder but has full ROM, most tenderness along scapular spine) Neurologic/Psychiatric: child welfare counselor II-XII nml as tested, no motor/sensory deficits, alert, normal mood/affect, oriented x 3 Skin: normal color, warm/dry Lymphatic: no adenopathy Kit Coma Score Best Eye Response: (4) Open Spontaneously Best Verbal Response: (5) Oriented Best Motor Response: (6) Obeys Commands [place] Total: 15 Progress/Results/Core Measures Results/Orders Lab Results Laboratory Tests Test 04/10/21 08:05 Range/Units White Blood Count 8.5 4.3-11.0 10^3/uL Red Blood Count 3.36 L 4.30-5.52 10^6/uL Hemoglobin 11.3 L 13.3-17.7 g/dL Hematocrit 34 L 40-54 % Mean Corpuscular Volume 100 H 80-99 fL Mean Corpuscular Hemoglobin 34 25-34 pg Mean Corpuscular Hemoglobin Concent 34 32-36 g/dL Red Cell Distribution Width 14.8 H 10.0-14.5 % Platelet Count 223 130-400 10^3/uL Mean Platelet Volume 9.1 9.0-12.2 fL Immature Granulocyte % (Auto) 0 % Neutrophils (%) (Auto) 92 H 42-75 % Lymphocytes (%) (Auto) 4 L 12-44 % Monocytes (%) (Auto) 4 0-12 % Eosinophils (%) (Auto) 0 0-10 % Basophils (%) (Auto) 0 0-10 % Neutrophils # (Auto) 7.8 1.8-7.8 X 10^3 Lymphocytes # (Auto) 0.3 L 1.0-4.0 X 10^3 Monocytes # (Auto) 0.3 0.0-1.0 X 10^3 Eosinophils # (Auto) 0.0 0.0-0.3 10^3/uL Basophils # (Auto) 0.0 0.0-0.1 10^3/uL Immature Granulocyte # (Auto) 0.0 0.0-0.1 10^3/uL Neutrophils % (Manual) 97 % Lymphocytes % (Manual) 2 % Monocytes % (Manual) 1 % Toxic Granulation 2+ Platelet Estimate ADEQUATE Blood Morphology Comment NORMAL Prothrombin Time 14.4 12.2-14.7 SEC INR Comment 1.1 0.8-1.4 Activated Partial Thromboplast Time 29 24-35 SEC Sodium Level 135 135-145 MMOL/L Potassium Level 4.3 3.6-5.0 MMOL/L Chloride Level 103 98-107 MMOL/L Carbon Dioxide Level 21 21-32 MMOL/L Anion Gap 11 5-14 MMOL/L Blood Urea Nitrogen 29 H 7-18 MG/DL Creatinine 1.50 H 0.60-1.30 MG/DL Estimat Glomerular Filtration Rate 46 BUN/Creatinine Ratio 19 Glucose Level 182 H 70-105 MG/DL Calcium Level 8.6 8.5-10.1 MG/DL My Orders Orders - AMMON RAPHAEL MD Basic Metabolic Panel (04/10/21 07:56) Cbc With Automated Diff (04/10/21 07:56) Protime With Inr (04/10/21 07:56) Partial Thromboplastin Time (04/10/21 07:56) Ct Head/Cervical Spine Wo (04/10/21 07:56) Ct Chest Wo (04/10/21 07:56) Shoulder 3 View Right (04/10/21 07:56) Manual Differential (04/10/21 08:05) Vital Signs/I&O 04/10/21 07:45 Temp 36.7 Pulse 73 Resp 18 B/P (MAP) 154/66 (95) Pulse Ox 98 O2 Delivery Room Air Blood Pressure Mean: 95 Progress Progress Note : Progress Note 76-year-old male with above history coming in after a mechanical fall. GCS 15, ABCs intact, and vital signs stable on presentation. Physical exam mostly notable for pain along the right scapula, pain with range of motion of right shoulder, and para vertebral tenderness in the cervical and thoracic spine with no midline tenderness. Given his age is a risk factor as well as vomiting after the fall, CT head ordered as well as CT cervical spine. He has some mild chest wall pain on the right as well as the paravertebral tenderness and therefore CT chest without contrast ordered to assess for rib fractures as well as potential spine fracture. CT head, cervical spine, and chest negative for any acute abnormalities. Right shoulder x-ray on my interpretation without any fracture but does have arthritic changes. Given Tylenol for pain control. Creatinine improved from his previous admission. Labs otherwise fairly unremarkable. The patient is at his baseline. I believe he is stable for discharge, especially given this was a mechanical fall. He was sent home with strict return precautions. Diagnostic Imaging Diagonstic Imaging: CT Plain Films/CT/US/NM/MRI: chest, c-spine, head Comments CT chest negative for acute findings. [facility] [place], [place] NAME: JOAO HARDY [facility] REC#: [id number] PT STATUS: REG ER : 1945 PHYSICIAN: AMMON RAPHAEL MD ADMIT DATE: 04/10/21/ER FS Draft Date of Exam:04/10/21 CT HEAD/CERVICAL SPINE WO PROCEDURE: CT head and CT cervical spine without contrast. TECHNIQUE: Multiple contiguous axial images were obtained through the brain and cervical spine without the use of intravenous contrast. Sagittal and coronal reformations through the cervical spine were then performed. Auto Exposure Controls were utilized during the CT exam to meet ALARA standards for radiation dose reduction. INDICATION: Fall. Trauma to the head. COMPARISON: 02/08/2021 FINDINGS: CT head: The ventricles and cortical sulci are diffusely prominent, compatible with age-related volume loss. There are confluent areas of abnormal, low attenuation in the periventricular white matter. This is consistent with chronic small vessel ischemic changes. There is no midline shift or mass-effect. No acute intra-axial hemorrhage is seen. There are no abnormal areas of increased or decreased density to suggest acute hemorrhage or edema. No extra-axial masses or collections are present. The bony calvarium is intact. The visualized paranasal sinuses are unremarkable. The mastoid air cells are clear. CT cervical spine: Evaluation static alignment shows slight grade 1 retrolisthesis at C3-C4 and slight grade 1 anterolisthesis at C4-C5. There is also exaggerated lordosis of the upper cervical spine. Findings may relate to patient positioning, as well as underlying spasm and degenerative changes. There is no evidence of jumped facets. Vertebral body heights are preserved. No acute fracture is seen. 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 There are mild multilevel degenerative changes consistent of intervertebral disc height loss with anterior and posterior disc osteophyte complex formations, as well as multilevel facet arthropathy. Pre and paravertebral soft tissue structures are unremarkable. Included portions of the lung apices are clear IMPRESSION: 1. No acute intracranial abnormality. No CT evidence of mass, acute infarct or intracranial hemorrhage. 2. Chronic small vessel ischemic changes in deep white matter. 3. No acute fracture or dislocation cervical spine. 4. Mild multilevel degenerative changes. Dictated on workstation # [id number] Dict: 04/10/21 0835 Trans: 04/10/21 0848 [id number] Interpreted by: SULEMAN WILLIS MD Electronically signed by: Departure Impression Primary Impression: Recurrent falls Additional Impression: Right shoulder pain Qualified Codes: M25.511 - Pain in right shoulder Disposition: 01 HOME, SELF-CARE Condition: Stable Departure-Patient Inst. Decision time for Depature: 09:10 Referrals: SUSAN MELENDREZ DO (PCP/Family) Primary Care Physician Patient Instructions: Shoulder Pain ED, Getting Up From a Fall Add. Discharge Instructions: You were seen in the emergency department after he tripped and fell. Pictures of your head, neck, shoulder, and back were all normal without any findings of new fracture or bleeding. Please follow-up with your primary care doctor. You have any other concerns then please come back to the ER. All discharge instructions reviewed with patient and/or family. Voiced understanding. AMMON RAPHAEL MD Apr 10, 2021 08:03
[2021-04-10 08:21] LABS: HEMOGLOBIN 11.3 g/dL (13.3-17.7); MEAN CORPUSCULAR HEMOGLOBIN 34 pg (25-34); WHITE BLOOD COUNT 8.5 10^3/uL (4.3-11.0)
[2021-04-10 08:27] LABS: HEMATOCRIT 34 % (40-54)
[2021-04-10 08:28] LABS: BASOPHILS % (AUTO) 0 % (0-10); EOSINOPHILS % (AUTO) 0 % (0-10); LYMPHOCYTES # (AUTO) 0.3 X 10^3 (1.0-4.0); LYMPHOCYTES % (AUTO) 4 % (12-44); MEAN CORPUSCULAR HGB CONC 34 g/dL (32-36); MEAN CORPUSCULAR VOLUME 100 fL (80-99); MEAN PLATELET VOLUME 9.1 fL (9.0-12.2); MONOCYTES # (AUTO) 0.3 X 10^3 (0.0-1.0); MONOCYTES % (AUTO) 4 % (0-12); NEUTROPHILS # (AUTO) 7.8 X 10^3 (1.8-7.8); NEUTROPHILS % (AUTO) 92 % (42-75); PLATELET COUNT 223 10^3/uL (130-400)
[2021-04-10 08:34] LABS: CALCIUM 8.6 MG/DL (8.5-10.1); CREATININE SERUM 1.5 MG/DL (0.60-1.30); POTASSIUM 4.3 MMOL/L (3.6-5.0)
--- NOTE | 2021-04-10 08:36 | Diagnostic Imaging Report ---
Indication: Right shoulder pain. Comparison: None Findings: 3 views of the right shoulder demonstrate loss of the subacromial space indicating a degree of the rotator cuff pathology. There is mild degenerative joint disease. There is no fracture or dislocation. No osseous lesion. Impression: Degenerative changes without fracture. Dictated by: Dictated on workstation # [id number]
--- NOTE | 2021-04-10 08:38 | Diagnostic Imaging Report ---
EXAMINATION: CT chest without contrast. TECHNIQUE: Multiple contiguous axial images were obtained through the chest without the use of intravenous contrast. All CT scans use one or more of the following dose optimizing techniques: automated exposure control, MA and/or KvP adjustment based on patient size and exam type or iterative reconstruction. HISTORY: Fall and vomiting COMPARISON: None available. FINDINGS: There is no edema or pneumonia. No pleural effusion. No pneumothorax. No suspicious nodules. There is mild atelectasis or scarring in the lung bases. There is no axillary or supraclavicular lymphadenopathy. There is no mediastinal lymphadenopathy. Heart size is normal. There are severe coronary artery calcifications. No pericardial effusion. Aorta is normal in caliber. Limited views of the upper abdomen are unremarkable. There are no suspicious osseus lesions. IMPRESSION: 1. No acute abnormality in the chest. Dictated by: Dictated on workstation # [id number]
[2021-04-10 08:41] LABS: LYMPHOCYTES % (MANUAL) 2 %; MONOCYTES % (MANUAL) 1 %; NEUTROPHILS % (MANUAL) 97 %; PLATELET ESTIMATE ADEQUATE; RBC MORPH NORMAL
[2021-04-10 08:42] LABS: TOXIC GRANULATION/VACUOLAZATIO 2+
[2021-04-10 08:43] LABS: INR 1.1 (0.8-1.4); PROTHROMBIN TIME PATIENT 14.4 SEC (12.2-14.7)
--- NOTE | 2021-04-10 08:49 | Diagnostic Imaging Report ---
PROCEDURE: CT head and CT cervical spine without contrast. TECHNIQUE: Multiple contiguous axial images were obtained through the brain and cervical spine without the use of intravenous contrast. Sagittal and coronal reformations through the cervical spine were then performed. Auto Exposure Controls were utilized during the CT exam to meet ALARA standards for radiation dose reduction. INDICATION: Fall. Trauma to the head. COMPARISON: 02/08/2021 FINDINGS: CT head: The ventricles and cortical sulci are diffusely prominent, compatible with age-related volume loss. There are confluent areas of abnormal, low attenuation in the periventricular white matter. This is consistent with chronic small vessel ischemic changes. There is no midline shift or mass-effect. No acute intra-axial hemorrhage is seen. There are no abnormal areas of increased or decreased density to suggest acute hemorrhage or edema. No extra-axial masses or collections are present. The bony calvarium is intact. The visualized paranasal sinuses are unremarkable. The mastoid air cells are clear. CT cervical spine: Evaluation static alignment shows slight grade 1 retrolisthesis at C3-C4 and slight grade 1 anterolisthesis at C4-C5. There is also exaggerated lordosis of the upper cervical spine. Findings may relate to patient positioning, as well as underlying spasm and degenerative changes. There is no evidence of jumped facets. Vertebral body heights are preserved. No acute fracture is seen. 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 There are mild multilevel degenerative changes consistent of intervertebral disc height loss with anterior and posterior disc osteophyte complex formations, as well as multilevel facet arthropathy. Pre and paravertebral soft tissue structures are unremarkable. Included portions of the lung apices are clear IMPRESSION: 1. No acute intracranial abnormality. No CT evidence of mass, acute infarct or intracranial hemorrhage. 2. Chronic small vessel ischemic changes in deep white matter. 3. No acute fracture or dislocation cervical spine. 4. Mild multilevel degenerative changes. Dictated by: Dictated on workstation # [id number]
[2021-04-10 09:12] VITALS: BP 148/68
[2021-04-10] MEDS ORDERED: ACETAMINOPHEN 500 MG TAB (TYLENOL) PO ONE (09:15)
== END 2021-04-10 10:11 | disposition home or self-care (01) ==
LOC: EDUNIT# 07:45 → ER FS 07:46
DX: M25.511 Pain in right shoulder (principal); R29.6 Repeated falls; I10 Essential (primary) hypertension; E11.9 Type 2 diabetes mellitus without complications; F03.90 Unspecified dementia, unspecified severity, without behavioral disturbance, psychotic disturbance, mood disturbance, and anxiety
CPT/HCPCS: 36415; 70450; 71250; 72125; 73030; 80048; 85007; 85027; 85610; 85730

== ENCOUNTER 2021-04-19 13:32 | Day surgery (SDC) | payer MEDICARE ==
[2021-04-19] VITALS (9 sets, daily range): BP systolic 130–174; BP diastolic 65–99
[~2021-04-19] VITALS: Ht 160 cm; Wt 71.3 kg
[2021-04-19] MEDS ORDERED: ONDANSETRON 4 MG/2 ML (SDV) Z0FRAN IVP STA (13:50)
[2021-04-19] MEDS ORDERED: PANTOPRAZOLE 40 MG (PROTONIX) VIAL IV STA (13:50)
[2021-04-19] MEDS ORDERED: NS IV 1000 ML 1,000 ML IV STA (13:50)
--- NOTE | 2021-04-19 14:00 | ED GI ---
General Chief Complaint: Abdominal/GI Problems Stated Complaint: COUGH; VOMITING; DIARRHEA Nursing Triage Note: PT REPORTS NAUSEA AND VOMITING AFTER HIS NEIGHBOR THAT HELPS HIM MADE HIM TAKE HIS LISINOPRIL AND HE VOMITED ALL NIGHT. HE ALSO STATES DIARRHEA ALL NIGHT. Source of Information: Patient, Old Records History of Present Illness Date Seen by Provider: Apr 19, 2021 Time Seen by Provider: 13:36 Initial Comments 76 yo male presents by POV for complaint of subjective fever/chills, nausea/vomiting/diarrhea since last night. He felt his problems started when he took Lisinopril pill that he reports Dr. Lester advised him to not take. He denies contact with ill people. [facility] [place]. He states that about every 15-20 minutes he was having vomiting and/or diarrhea all night long. He says his phone did not work to call Dr. Lester, his PCP. He has someone from [facility] bring him to ED. He states he has been drinking water to help try and prevent dehydration. Timing/Duration: 12-24 Hours Severity/Quality: Mild, Aching Location: Generalized Abdomen Radiation: No Radiation Activities at Onset: None Modifying Factors: Worsens With Eating Associated Symptoms: No Back Pain, No Chest Pain, No Diaphoresis; Fever/Chills (subjective), Fatigue; No Headache, No Heartburn; Nausea/Vomiting; No Rash, No Shortness of Air, No Swelling/Mass in Abdomen, No Syncope; Weakness Allergies and Home Medications Allergies Coded Allergies: Penicillins (Verified Allergy, Unknown, 07/18/20) Sulfa (Sulfonamide Antibiotics) (Verified Allergy, Unknown, 07/18/20) Patient Home Medication List Home Medication List Reviewed: Yes Amlodipine Besylate (Amlodipine Besylate) 10 Mg Tablet, 10 MG PO DAILY Prescribed by: TOBY RIBERA on 02/21/21 0931 Citalopram Hydrobromide (Citalopram HBr) 20 Mg Tablet, 20 MG PO DAILY, (Reported) Entered as Reported by: MOY HUDDLESTON on 02/19/21 1624 Review of Systems Review of Systems Constitutional: see HPI EENTM: No Symptoms Reported Respiratory: No Symptoms Reported Cardiovascular: No Symptoms Reported Gastrointestinal: See HPI Genitourinary: No Symptoms Reported; Denies Burning, Denies Frequency, Denies Pain Musculoskeletal: no symptoms reported Skin: no symptoms reported Psychiatric/Neurological: Weakness (general) Past Jrsgdcp-Dgmwls-Dxkmfw Hx Patient Social History Tobacco Use?: No Use of E-Cig and/or Vaping dev: No Substance use?: No Alcohol Use?: No Pt feels they are or have been: No Immunizations Up To Date First/Initial COVID19 Vaccinat: DECEMBER 2020 Second COVID19 Vaccination Serafin: DECEMBER 2020 COVID19 Vaccine Health Information Tech: MODERNDayo Seasonal Allergies Seasonal Allergies: No Past Medical History Surgeries: Yes Respiratory: No Cardiac: No Hypertension Neurological: No 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 oz. 68.687304zc; 25.00 BMI Method:Stated General Appearance: no apparent distress, other (chronically ill appearing) HEENT: pharynx normal (slightly dry mucous membranes) Neck: non-tender Respiratory: chest non-tender, lungs clear, normal breath sounds Cardiovascular: normal peripheral pulses, regular rate, rhythm, systolic murmur (holosystolic 4/6) Gastrointestinal: normal bowel sounds, non tender, soft, no pulsatile mass; No distended, No guarding, No rebound, No tenderness Rectal: deferred Extremities: normal range of motion, non-tender, normal capillary refill Neurologic/Psychiatric: buttonhole tacker II-XII nml as tested, alert, oriented x 3 Skin: normal color, warm/dry; No ecchymosis, No rash Images 1 - complaint of mild diffuse aching but non tender on exam Focused Exam Lactate Level 04/19/21 13:45: Lactic Acid Level 1.32 Lactic Acid Level Laboratory Tests Test 04/19/21 13:45 Lactic Acid Level 1.32 MMOL/L (0.50-2.00) Progress/Results/Core Measures Results/Orders Lab Results Laboratory Tests Test 04/19/21 13:45 04/19/21 15:11 Range/Units White Blood Count 10.2 4.3-11.0 10^3/uL Red Blood Count 3.79 L 4.30-5.52 10^6/uL Hemoglobin 12.7 L 13.3-17.7 g/dL Hematocrit 37 L 40-54 % Mean Corpuscular Volume 97 80-99 fL Mean Corpuscular Hemoglobin 34 25-34 pg Mean Corpuscular Hemoglobin Concent 35 32-36 g/dL Red Cell Distribution Width 14.3 10.0-14.5 % Platelet Count 257 130-400 10^3/uL Mean Platelet Volume 9.2 9.0-12.2 fL Immature Granulocyte % (Auto) 0 % Neutrophils (%) (Auto) 93 H 42-75 % Lymphocytes (%) (Auto) 3 L 12-44 % Monocytes (%) (Auto) 4 0-12 % Eosinophils (%) (Auto) 0 0-10 % Basophils (%) (Auto) 0 0-10 % Neutrophils # (Auto) 9.5 H 1.8-7.8 X 10^3 Lymphocytes # (Auto) 0.3 L 1.0-4.0 X 10^3 Monocytes # (Auto) 0.4 0.0-1.0 X 10^3 Eosinophils # (Auto) 0.0 0.0-0.3 10^3/uL Basophils # (Auto) 0.0 0.0-0.1 10^3/uL Immature Granulocyte # (Auto) 0.0 0.0-0.1 10^3/uL Neutrophils % (Manual) 92 % Lymphocytes % (Manual) 2 % Monocytes % (Manual) 2 % Metamyelocytes % 1 % Band Neutrophils 3 % Platelet Estimate ADEQUATE Blood Morphology Comment NORMAL Sodium Level 137 135-145 MMOL/L Potassium Level 4.5 3.6-5.0 MMOL/L Chloride Level 100 98-107 MMOL/L Carbon Dioxide Level 26 21-32 MMOL/L Anion Gap 11 5-14 MMOL/L Blood Urea Nitrogen 22 H 7-18 MG/DL Creatinine 1.58 H 0.60-1.30 MG/DL Estimat Glomerular Filtration Rate 43 BUN/Creatinine Ratio 14 Glucose Level 197 H 70-105 MG/DL Lactic Acid Level 1.32 0.50-2.00 MMOL/L Calcium Level 9.3 8.5-10.1 MG/DL Corrected Calcium 8.9 8.5-10.1 MG/DL Total Bilirubin 3.8 H 0.1-1.0 MG/DL Aspartate Amino Transf (AST/SGOT) 327 H 5-34 U/L Alanine Aminotransferase (ALT/SGPT) 112 H 0-55 U/L Alkaline Phosphatase 154 H 40-136 U/L Total Protein 7.7 6.4-8.2 GM/DL Albumin 4.5 3.2-4.5 GM/DL Lipase 28 8-78 U/L Urine Color YELLOW Urine Clarity CLEAR Urine pH 7.5 5-9 Urine Specific Kelly 1.015 L 1.016-1.022 Urine Protein NEGATIVE NEGATIVE Urine Glucose (UA) 2+ H NEGATIVE Urine Ketones NEGATIVE NEGATIVE Urine Nitrite NEGATIVE NEGATIVE Urine Bilirubin NEGATIVE NEGATIVE Urine Urobilinogen 0.2 < = 1.0 MG/DL Urine Leukocyte Esterase NEGATIVE NEGATIVE Urine RBC (Auto) TRACE H NEGATIVE Urine RBC RARE /HPF Urine WBC RARE /HPF Urine Squamous Epithelial Cells NONE /HPF Urine Crystals NONE /LPF Urine Bacteria NEGATIVE /HPF Urine Casts NONE /LPF Urine Mucus NEGATIVE /LPF Urine Culture Indicated NO My Orders Orders - KUNAL OLMOS MD Comprehensive Metabolic Panel (04/19/21 13:49) Lipase (04/19/21 13:49) Ua Culture If Indicated (04/19/21 13:49) Ed Iv/Invasive Line Start (04/19/21 13:49) Cbc With Automated Diff (04/19/21 13:49) Ct Abdomen/Pelvis Wo (04/19/21 13:49) Lactic Acid Analyzer (04/19/21 13:49) Ns Iv 1000 Ml (Sodium Chloride 0.9%) (04/19/21 13:50) Ondansetron Injection (Zofran Injectio (04/19/21 13:50) Pantoprazole Injection (Protonix Injecti (04/19/21 13:50) Manual Differential (04/19/21 13:45) Us Gallbladder [id number] (04/19/21 15:17) Vital Signs/I&O 04/19/21 04/19/21 13:40 17:14 Temp 37.1 36.7 Pulse 78 72 Resp 18 16 B/P (MAP) 155/78 (103) 132/68 Pulse Ox 98 99 O2 Delivery Room Air Room Air Blood Pressure Mean: 103 Progress Progress Note #1: Progress Note Check labs, Urine, Lactic acid to look for bowel ischemia. CT scan without contrast to evaluate for obstruction, mass, free air, constipation, diverticulitis, colitis. Give 1 L NS bolus for hydration, Zofran 4 mg IV for nausea. Progress Note #2: Time: 14:[address] scan without contrast shows large left inguinal hernia without obstruction. Debris near ampulla of Vater for possible choledocholithiasis. Awaiting labs, UA, Lipase, Lactic acid, LFTs Progress Note #3: Time: 15:15 Progress Note CBC with WBC count of 10.2. Appears stable from prior labs. Chemistry shows glucose of 197 and elevated LFTs with Total Bili 3.8, AST 327, ALT 112, Alk Phos 154. lipase is not elevated. UA shows glucose but no infection. With CT scan showing debris at ampulla of Vater and having elevated LFTs will obtain ultrasound to evaluate his gallbladder. Pt has had no emesis or diarrhea while in ED to this point. Progress Note #4: Time: 16:34 Progress Note Ultrasound shows pericholecystic fluid with gallstones and some dilated ducts. Concerning for early cholecystitis. Called Dr. Robledo, surgeon probation counselor, and he was in procedure and will call back [phone] Dr. Robledo reviewed case and recommends surgery for gallbladder. Will have pt go to [facility]. He plans to contact hospitalist as needed for consult and management of diabetes and medical conditions. Diagnostic Imaging Diagonstic Imaging: CT Plain Films/CT/US/NM/MRI: abdomen, pelvis Comments NAME: JOAO HARDY [facility] REC#: [id number] PT STATUS: REG ER : 1945 PHYSICIAN: KUNAL OLMOS MD ADMIT DATE: 04/19/21/ER FS Draft Date of Exam:04/19/21 CT ABDOMEN/PELVIS WO PROCEDURE: CT abdomen and pelvis without contrast. TECHNIQUE: Multiple contiguous axial images were obtained through the abdomen and pelvis without the use of intravenous contrast. Auto Exposure Controls were utilized during the CT exam to meet ALARA standards for radiation dose reduction. INDICATION: Nausea, emesis, and diarrhea. FINDINGS: Linear atelectasis and/or scarring is noted in the lung bases. Note is also made of coronary artery calcification. Unenhanced images of the liver and spleen reveal no focal abnormality. There is mild hiatal hernia. Gallbladder is distended and contains multiple stones within the dependent portion. There is mild intra- and extra-hepatic biliary ductal prominence with mild high density near the ampulla of Vater. No pancreatic lesion is identified. Adrenal glands are unremarkable. Evaluation of the kidneys is somewhat limited without intravenous contrast; however, there is no evidence of mass, stone, or hydronephrosis. There is renal asymmetry with smaller right kidney noted. There is no free fluid in the abdomen or pelvis, and no bowel dilatation is identified. There is a large hernia extending through the left inguinal canal containing omentum and loops of small and large bowel. There is also fat-containing right inguinal hernia. IMPRESSION: 1. Large left inguinal hernia without definite obstruction. There is also fat-containing right inguinal hernia and cholelithiasis noted. 2. Small amount of hyperdensity is seen near ampulla of Vater, which may represent choledocholithiasis. Correlation with pancreatic and hepatic enzymes may be of use. Dictated on workstation # [id number] Dict: 04/19/21 1413 Trans: 04/19/21 1421 [id number] Interpreted by: RHONDA FANG MD Electronically signed by: Reviewed: Reviewed by Pa Diagonstic Imaging: Ultrasound Plain Films/CT/US/NM/MRI: abdomen Comments NAME: JOAO HARDY [facility] REC#: [id number] PT STATUS: REG ER : 1945 PHYSICIAN: KUNAL OLMOS MD ADMIT DATE: 04/19/21/ER FS Draft Date of Exam:04/19/21 US GALLBLADDER [id number] PROCEDURE: US Gallbladder. TECHNIQUE: Multiple real-time grayscale images were obtained over the right upper quadrant in various projections. INDICATION: Nausea, emesis, and elevated liver function tests. FINDINGS: Liver measures 18 cm in length without focal hepatic abnormality identified, although the left lobe of the liver is largely obscured by overlying bowel. Gallbladder is dilated with cholelithiasis and mild pericholecystic free fluid. Wall thickness is 0.2 cm. The common bile duct reaches 1.1 cm in diameter. No right renal abnormality is identified apart from mild diffuse cortical thinning. Visualized portions of the proximal pancreas are unremarkable. There is suggestion of echogenic material in the pancreatic head, which may reside within the distal common bile duct. No abdominal aortic or inferior vena caval abnormality is identified. There may be a small amount of pericholecystic fluid. IMPRESSION: Cholelithiasis and possible choledocholithiasis with gallbladder distention and pericholecystic fluid. This does raise concern for possible distal common bile duct obstruction and developing acute cholecystitis. Clinical correlation is recommended. ERCP may be of value for further assessment. Dictated on workstation # [id number] Dict: 04/19/21 1609 Trans: 04/19/21 1619 [id number] Interpreted by: RHONDA FANG MD Electronically signed by: Departure Communication (Admissions) Time/Spoke to Admitting Phy: 16:50 d/w Dr. Robledo and he recommended having pt come to be seen in [place] and get his gallbladder taken out. Impression Primary Impression: Acute cholecystitis due to biliary calculus Additional Impressions: Nausea vomiting and diarrhea Elevated LFTs Disposition: 30 STILL A PATIENT Condition: Stable Admissions Decision to Admit Reason: Admit from ER (General) Decision to Admit/Date: Apr 19, 2021 Time/Decision to Admit Time: 16:50 Departure-Patient Inst. Referrals: SUSAN LESTER DO (PCP/Family) Primary Care Physician KUNAL OLMOS MD Apr 19, 2021 14:00
--- NOTE | 2021-04-19 14:21 | Diagnostic Imaging Report ---
PROCEDURE: CT abdomen and pelvis without contrast. TECHNIQUE: Multiple contiguous axial images were obtained through the abdomen and pelvis without the use of intravenous contrast. Auto Exposure Controls were utilized during the CT exam to meet ALARA standards for radiation dose reduction. INDICATION: Nausea, emesis, and diarrhea. FINDINGS: Linear atelectasis and/or scarring is noted in the lung bases. Note is also made of coronary artery calcification. Unenhanced images of the liver and spleen reveal no focal abnormality. There is mild hiatal hernia. Gallbladder is distended and contains multiple stones within the dependent portion. There is mild intra- and extra-hepatic biliary ductal prominence with mild high density near the ampulla of Vater. No pancreatic lesion is identified. Adrenal glands are unremarkable. Evaluation of the kidneys is somewhat limited without intravenous contrast; however, there is no evidence of mass, stone, or hydronephrosis. There is renal asymmetry with smaller right kidney noted. There is no free fluid in the abdomen or pelvis, and no bowel dilatation is identified. There is a large hernia extending through the left inguinal canal containing omentum and loops of small and large bowel. There is also fat-containing right inguinal hernia. IMPRESSION: 1. Large left inguinal hernia without definite obstruction. There is also fat-containing right inguinal hernia and cholelithiasis noted. 2. Small amount of hyperdensity is seen near ampulla of Vater, which may represent choledocholithiasis. Correlation with pancreatic and hepatic enzymes may be of use. Dictated by: Dictated on workstation # [id number]
[2021-04-19 14:33] LABS: HEMATOCRIT 37 % (40-54); HEMOGLOBIN 12.7 g/dL (13.3-17.7); LYMPHOCYTES % (AUTO) 3 % (12-44); MEAN CORPUSCULAR HEMOGLOBIN 34 pg (25-34); MEAN CORPUSCULAR HGB CONC 35 g/dL (32-36); MEAN CORPUSCULAR VOLUME 97 fL (80-99); MEAN PLATELET VOLUME 9.2 fL (9.0-12.2); MONOCYTES % (AUTO) 4 % (0-12); NEUTROPHILS % (AUTO) 93 % (42-75); PLATELET COUNT 257 10^3/uL (130-400); WHITE BLOOD COUNT 10.2 10^3/uL (4.3-11.0)
[2021-04-19 14:34] LABS: BASOPHILS % (AUTO) 0 % (0-10); EOSINOPHILS % (AUTO) 0 % (0-10); LYMPHOCYTES # (AUTO) 0.3 X 10^3 (1.0-4.0); MONOCYTES # (AUTO) 0.4 X 10^3 (0.0-1.0); NEUTROPHILS # (AUTO) 9.5 X 10^3 (1.8-7.8)
[2021-04-19 14:41] LABS: CREATININE SERUM 1.58 MG/DL (0.60-1.30); POTASSIUM 4.5 MMOL/L (3.6-5.0)
[2021-04-19 14:42] LABS: BILIRUBIN,TOTAL 3.8 MG/DL (0.1-1.0); CALCIUM 9.3 MG/DL (8.5-10.1)
[2021-04-19 14:43] LABS: ALBUMIN 4.5 GM/DL (3.2-4.5); TOTAL PROTEIN 7.7 GM/DL (6.4-8.2)
[2021-04-19 15:02] LABS: BAND NEUTROPHILS 3 %; LYMPHOCYTES % (MANUAL) 2 %; MONOCYTES % (MANUAL) 2 %; NEUTROPHILS % (MANUAL) 92 %
[2021-04-19 15:03] LABS: METAMYELOCYTES % 1 %; PLATELET ESTIMATE ADEQUATE; RBC MORPH NORMAL
[2021-04-19 15:21] LABS: BACTERIA,URINE NEGATIVE /HPF; BILIRUBIN,URINE NEGATIVE (NEGATIVE); CLARITY,URINE CLEAR; COLOR,URINE YELLOW; GLUCOSE, URINE (UA) 2+ (NEGATIVE); KETONES,URINE NEGATIVE (NEGATIVE); LEUKOCYTE ESTERASE ,URINE NEGATIVE (NEGATIVE); NITRITE,URINE NEGATIVE (NEGATIVE); PH,URINE 7.5 (5-9); PROTEIN,URINE NEGATIVE (NEGATIVE); RBC,URINE RARE /HPF; WBC,URINE RARE /HPF
--- NOTE | 2021-04-19 16:16 | Diagnostic Imaging Report ---
PROCEDURE: US Gallbladder. TECHNIQUE: Multiple real-time grayscale images were obtained over the right upper quadrant in various projections. INDICATION: Nausea, emesis, and elevated liver function tests. FINDINGS: Liver measures 18 cm in length without focal hepatic abnormality identified, although the left lobe of the liver is largely obscured by overlying bowel. Gallbladder is dilated with cholelithiasis and mild pericholecystic free fluid. Wall thickness is 0.2 cm. The common bile duct reaches 1.1 cm in diameter. No right renal abnormality is identified apart from mild diffuse cortical thinning. Visualized portions of the proximal pancreas are unremarkable. There is suggestion of echogenic material in the pancreatic head, which may reside within the distal common bile duct. No abdominal aortic or inferior vena caval abnormality is identified. There may be a small amount of pericholecystic fluid. IMPRESSION: Cholelithiasis and possible choledocholithiasis with gallbladder distention and pericholecystic fluid. This does raise concern for possible distal common bile duct obstruction and developing acute cholecystitis. Clinical correlation is recommended. ERCP may be of value for further assessment. Dictated by: Dictated on workstation # [id number]
[2021-04-19] MEDS ORDERED: LIDOCAINE/EPI 1%-1:100,000 (XYLOCAINE) 20ML ONE (17:37)
[2021-04-19] MEDS ORDERED: ONDANSETRON 4 MG/2 ML (SDV) Z0FRAN ONE ×2 (18:02→19:43)
[2021-04-19] MEDS ORDERED: LIDOCAINE PF 2% 5 ML (XYLOCAINE) VIAL ONE (18:02)
[2021-04-19] MEDS ORDERED: ROCURONIUM 10 MG/ML 5 ML SYRINGE IV ONE (18:02)
[2021-04-19] MEDS ORDERED: proPOfol 200 MG/20 ML (DIPRIVAN) VIAL IV ONE (18:02)
[2021-04-19] MEDS ORDERED: fentaNYL INJ 100 MCG/2 ML AMP ONE (18:03)
[2021-04-19] MEDS ORDERED: CATHETER FLUSH 10 ML SYR IV PRN (18:15)
[2021-04-19] MEDS: LACTATED RINGERS 1,000 ML IV PRN ×2 (18:45→19:30)
[2021-04-19] MEDS ORDERED: CLINDAMYCIN 600 MG/50 ML IVPB 50 ML IV ONE (18:47)
[2021-04-19] MEDS ORDERED: MIDAZOLAM 2 MG/2 ML (VERSED) VIAL ONE (18:50)
--- NOTE | 2021-04-19 18:50 | Consultation - Surgery ---
History of Present Illness History of Present Illness Patient Consulted On(faiza/time) 04/19/21 18:44 Time Seen by Provider: 18:31 History of Present Illness Surgery asked to consult regarding RUQ pain r/o cholecystitis with cholelithiasis. HPI per ED: PT REPORTS NAUSEA AND VOMITING AFTER HIS NEIGHBOR THAT HELPS HIM MADE HIM TAKE HIS LISINOPRIL AND HE VOMITED ALL NIGHT. HE ALSO STATES DIARRHEA ALL NIGHT. 76 yo male presents by POV for complaint of subjective fever/chills, nausea/vomiting/diarrhea since last night. He felt his problems started when he took Lisinopril pill that he reports Dr. Lester advised him to not take. He denies contact with ill people. He lives in [facility] here in [place]. He states that about every 15-20 minutes he was having vomiting and/or diarrhea all night long. He says his phone did not work to call Dr. Lester, his PCP. He has someone from [facility] bring him to ED. He states he has been drinking water to help try and prevent dehydration. Timing/Duration: 12-24 Hours Severity/Quality: Mild, Aching Location: Generalized Abdomen Radiation: No Radiation Activities at Onset: None Modifying Factors: Worsens With Eating Associated Symptoms: No Back Pain, No Chest Pain, No Diaphoresis; Fever/Chills (subjective), Fatigue; No Headache, No Heartburn; Nausea/Vomiting; No Rash, No Shortness of Air, No Swelling/Mass in Abdomen, No Syncope; Weakness Pt states he has been having this pain for 3 months, off and on. Pain is mostly in the LLQ; can be dull or sharp. Pain occurs all day long, removing restrictive clothing helps and pressure in the area makes it worse. Denies any changes with foods. Allergies and Home Medications Allergies Coded Allergies: Penicillins (Verified Allergy, Unknown, 07/18/20) Sulfa (Sulfonamide Antibiotics) (Verified Allergy, Unknown, 07/18/20) Patient Home Medication List Home Medication List Reviewed: Yes Amlodipine Besylate (Amlodipine Besylate) 10 Mg Tablet, 10 MG PO DAILY Prescribed by: TOBY RIBERA on 02/21/21 0931 Citalopram Hydrobromide (Citalopram HBr) 20 Mg Tablet, 20 MG PO DAILY, (Reported) Entered as Reported by: MOY HUDDLESTON on 02/19/21 5864 Past Nkcaadh-Iswtrq-Carhfe Hx Patient Social History Smoking Status: Never a Smoker 2nd Hand Smoke Exposure: No Recent Hopitalizations: No Alcohol Use?: Yes Have you traveled recently?: No Seasonal Allergies Seasonal Allergies: No Surgeries History of Surgeries: No Respiratory History of Respiratory Disorde: No Cardiovascular History of Cardiac Disorders: Yes Cardiac Disorders: Hypertension Neurological History of Neurological Disord: No Genitourinary History of Genitourinary Disor: Yes (Hernia in the scrotum) Genitourinary Disorders: Renal Failure Gastrointestinal History of Gastrointestinal Di: No Musculoskeletal History of Musculoskeletal Dis: No Endocrine History of Endocrine Disorders: Yes Endocrine Disorders: Diabetes, Insulin dep HEENT History of HEENT Disorders: No Cancer History of Cancer: No Psychosocial History of Psychiatric Problem: No Integumentary History of Skin or Integumenta: Yes (diabetic ulcers) Blood Transfusions History of Blood Disorders: No Adverse Reaction to a Blood Tr: No Family Medical History Significant Family History: Heart Disease (Father), Other Conditions/Hx (Mother had alzheimers) Review of Systems-General Constitutional: malaise, weakness EENTM: No blurred vision, No mouth pain, No mouth swelling Respiratory: No cough, No dyspnea on exertion Cardiovascular: No chest pain, No palpitations Gastrointestinal: RUQ, LLQ, abdominal pain Genitourinary: No dysuria, No hematuria; hesitancy, incontinence Musculoskeletal: back pain, joint pain, joint swelling, muscle stiffness, muscle cramps Skin: No change in color, No change in hair/nails Psychiatric/Neurological: Anxiety, Depressed; Denies Seizure, Denies Tremors Physical Exam-General Problems Physical Exam Vital Signs Vital Signs - First Documented 04/19/21 13:40 Temp 37.1 Pulse 78 Resp 18 B/P (MAP) 155/78 (103) Pulse Ox 98 O2 Delivery Room Air Capillary Refill : Less Than 3 Seconds General Appearance: WD/WN, mild distress Eyes: Bilateral Eye PERRL, Bilateral Eye EOMI HEENT: pharynx normal; No scleral icterus (R), No scleral icterus (L); other (poor dentition) Neck: non-tender, supple Respiratory: chest non-tender, lungs clear, normal breath sounds, no respi ratory distress, no accessory muscle use Cardiovascular: regular rate, rhythm, no murmur Gastrointestinal: soft, no organomegaly, tenderness (RUQ), hernia (large right, huge left with bowel incarceration) Back: no CVA tenderness, no vertebral tenderness Extremities: no calf tenderness, pedal edema, swelling, other (chronic venous stasis changes in tibial area bilaterally, chronic skin changes on feet, toe nails look like they have a fungus) Neurologic/Psychiatric: tool planner II-XII nml as tested, alert, oriented x 3 Skin: normal color, warm/dry, other (has a skin tear along upper abdomen, right in a crease) Lymphatic: no adenopathy (neck, axilla or groin) Data Review Labs Laboratory Tests 04/19/21 13:45: White Blood Count 10.2, Red Blood Count 3.79L, Hemoglobin 12.7L, Hematocrit 37L, Mean Corpuscular Volume 97, Mean Corpuscular Hemoglobin 34, Mean Corpuscular Hemoglobin Concent 35, Red Cell Distribution Width 14.3, Platelet Count 257, Mean Platelet Volume 9.2, Immature Granulocyte % (Auto) 0, Neutrophils (%) (Auto) 93H, Lymphocytes (%) (Auto) 3L, Monocytes (%) (Auto) 4, Eosinophils (%) (Auto) 0, Basophils (%) (Auto) 0, Neutrophils # (Auto) 9.5H, Lymphocytes # (Auto) 0.3L, Monocytes # (Auto) 0.4, Eosinophils # (Auto) 0.0, Basophils # (Auto) 0.0, Immature Granulocyte # (Auto) 0.0, Neutrophils % (Manual) 92, Lymphocytes % (Manual) 2, Monocytes % (Manual) 2, Metamyelocytes % 1, Band Neutrophils 3, Platelet Estimate ADEQUATE, Blood Morphology Comment NORMAL, Sodium Level 137, Potassium Level 4.5, Chloride Level 100, Carbon Dioxide Level 26, Anion Gap 11, Blood Urea Nitrogen 22H, Creatinine 1.58H, Estimat Glomerular Filtration Rate 43, BUN/Creatinine Ratio 14, Glucose Level 197H, Lactic Acid Level 1.32, Calcium Level 9.3, Corrected Calcium 8.9, Total Bilirubin 3.8H, Aspartate Amino Transf (AST/SGOT) 327H, Alanine Aminotransferase (ALT/SGPT) 112H , Alkaline Phosphatase 154H, Total Protein 7.7, Albumin 4.5, Lipase 28 04/19/21 15:11: Urine Color YELLOW, Urine Clarity CLEAR, Urine pH 7.5, Urine Specific [place] 1.015L, Urine Protein NEGATIVE, Urine Glucose (UA) 2+H, Urine Ketones NEGATIVE, Urine Nitrite NEGATIVE, Urine Bilirubin NEGATIVE, Urine Urobilinogen 0.2, Urine Leukocyte Esterase NEGATIVE, Urine RBC (Auto) TRACEH, Urine RBC RARE, Urine WBC RARE, Urine Squamous Epithelial Cells NONE, Urine Crystals NONE, Urine Bacteria NEGATIVE, Urine Casts NONE, Urine Mucus NEGATIVE, Urine Culture Indicated NO Radiology Date of Exam:04/19/21 US GALLBLADDER [id number] PROCEDURE: US Gallbladder. TECHNIQUE: Multiple real-time grayscale images were obtained over the right upper quadrant in various projections. INDICATION: Nausea, emesis, and elevated liver function tests. FINDINGS: Liver measures 18 cm in length without focal hepatic abnormality identified, although the left lobe of the liver is largely obscured by overlying bowel. Gallbladder is dilated with cholelithiasis and mild pericholecystic free fluid. Wall thickness is 0.2 cm. The common bile duct reaches 1.1 cm in diameter. No right renal abnormality is identified apart from mild diffuse cortical thinning. Visualized portions of the proximal pancreas are unremarkable. There is suggestion of echogenic material in the pancreatic head, which may reside within the distal common bile duct. No abdominal aortic or inferior vena caval abnormality is identified. There may be a small amount of pericholecystic fluid. IMPRESSION: Cholelithiasis and possible choledocholithiasis with gallbladder distention and pericholecystic fluid. This does raise concern for possible distal common bile duct obstruction and developing acute cholecystitis. Clinical correlation is recommended. ERCP may be of value for further assessment. Dictated by: Dictated on workstation # [id number] Dict: 04/19/21 1609 Trans: 04/19/211716 [id number] Interpreted by: RHONDA FANG MD Electronically signed by: RHONDA FANG MD 04/19/217 Date of Exam:04/19/21 CT ABDOMEN/PELVIS WO PROCEDURE: CT abdomen and pelvis without contrast. TECHNIQUE: Multiple contiguous axial images were obtained through the abdomen and pelvis without the use of intravenous contrast. Auto Exposure Controls were utilized during the CT exam to meet ALARA standards for radiation dose reduction. INDICATION: Nausea, emesis, and diarrhea. FINDINGS: Linear atelectasis and/or scarring is noted in the lung bases. Note is also made of coronary artery calcification. Unenhanced images of the liver and spleen reveal no focal abnormality. There is mild hiatal hernia. Gallbladder is distended and contains multiple stones within the dependent portion. There is mild intra- and extra-hepatic biliary ductal prominence with mild high density near the ampulla of Vater. No pancreatic lesion is identified. Adrenal glands are unremarkable. Evaluation of the kidneys is somewhat limited without intravenous contrast; however, there is no evidence of mass, stone, or hydronephrosis. There is renal asymmetry with smaller right kidney noted. There is no free fluid in the abdomen or pelvis, and no bowel dilatation is identified. There is a large hernia extending through the left inguinal canal containing omentum and loops of small and large bowel. There is also fat-containing right inguinal hernia. IMPRESSION: 1. Large left inguinal hernia without definite obstruction. There is also fat-containing right inguinal hernia and cholelithiasis noted. 2. Small amount of hyperdensity is seen near ampulla of Vater, which may represent choledocholithiasis. Correlation with pancreatic and hepatic enzymes may be of use. Dictated by: Dictated on workstation # [id number] Dict: 04/19/21 1413 Trans: 04/19/21 1716 [id number] Interpreted by: RHONDA FANG MD Electronically signed by: RHONDA FANG MD 04/19/21 1716 Assessment/Plan Assessment/Plan Assessment/Plan Acute Cholecystitis with Cholelithiasis and possible choledochalithiasis B/L Inguinal hernias - incacerated HTN, DM Plan is npo, IV fluids, IV ABX, pain control, anti-emetics and to the OR for Lap aroscopic Cholecystectomy with cholangiogram possible open. Will get consent for surgery. I reviewed the CT myself and could see small stones that appeared to be in CBD just prior to the duodenum (at ampulla of Vater). I told pt it is possible he will need a ERCP. Discussed risks and complications with him; not limited to pain, bleeding, infection, scar, damage to bowel or bile duct and need for further procedure. All questions answered to his satisfaction. DIANN GARCIA DO Apr 19, 2021 18:50
[2021-04-19] MEDS ORDERED: morphine INJ 10 MG/ML 1ML (SYR OR VIAL) ONE (19:43)
[2021-04-19] MEDS ORDERED: GLYCOPYRROLATE 0.2 MG/ML (ROBINUL) 2 ML VIAL ONE (21:52)
[2021-04-19] MEDS ORDERED: NEOSTIGMINE 3 MG/3 ML VIAL ONE (21:54)
[2021-04-19] MEDS ORDERED: SEVOFLURANE (ULTANE) 15 ML INHAL SOLN ONE (21:58)
--- NOTE | 2021-04-19 22:01 | Progress Note-Post Operative ---
Post-Operative Progess Note Surgeon (s)/Local Owner Operator Truck Driver (s) Surgeon DIANN GARCIA DO Local Owner Operator Truck Driver: Sharron Pre-Operative Diagnosis Acute Roxana/roxana possible choledochalithiasis Post-Operative Diagnosis Acute roxana/roxana with choledochalithiasis partial obstruction B/L incarcerated inguinal hernia Procedure & Operative Findings Date of Procedure 04/19/21 Procedure Performed/Findings Lap roxaan with IOC, partial choledochoscope Anesthesia Type GET Estimated Blood Loss Estimated blood loss (mL): 50ml Specimens/Packing Specimens Removed GB and stones DIANN GARCIA DO Apr 19, 2021 22:01
[2021-04-19] MEDS ORDERED: MEPERIDINE (DEMEROL) INJ 50 MG/ML IVP ONE (22:45)
[2021-04-19] MEDS ORDERED: ONDANSETRON 4 MG/2 ML (SDV) Z0FRAN IVP PRN (22:45)
[2021-04-19] MEDS ORDERED: morphine INJ 10 MG/ML 1ML (SYR OR VIAL) IVP ONE (22:45)
[2021-04-19] MEDS ORDERED: PROMETHAZINE INJ 25 MG/ML (PHENERGAN) AMP IVP ONE (22:45)
[2021-04-19] MEDS: ONDANSETRON 4 MG/2 ML (SDV) Z0FRAN IV PRN (22:51)
[2021-04-19] MEDS: NS IV 1000 ML 1,000 ML IV SCH (23:16)
--- NOTE | 2021-04-19 23:43 | Diagnostic Imaging Report ---
INDICATION: Cholecystectomy. 54 seconds of fluoroscopy time utilized during fluoroscopic-assisted laparoscopic cholecystectomy. Images showed opacification of the a common bile duct distally spilling into the duodenum. No intraluminal filling defect. There was some extravasation in the subhepatic right upper quadrant. IMPRESSION: No demonstrated filling defect within the common bile duct found. Dictated by: Dictated on workstation # [id number]
[2021-04-20] VITALS (11 sets, daily range): BP systolic 110–161; BP diastolic 57–76
[2021-04-20 05:49] LABS: BASOPHILS % (AUTO) 0 % (0-10); EOSINOPHILS % (AUTO) 0 % (0-10); HEMATOCRIT 32 % (40-54); HEMOGLOBIN 10.6 g/dL (13.3-17.7); LYMPHOCYTES # (AUTO) 0.4 10^3/uL (1.0-4.0); LYMPHOCYTES % (AUTO) 3 % (12-44); MEAN CORPUSCULAR HEMOGLOBIN 33 pg (25-34); MEAN CORPUSCULAR HGB CONC 33 g/dL (32-36); MEAN CORPUSCULAR VOLUME 100 fL (80-99); MEAN PLATELET VOLUME 9.5 fL (9.0-12.2); MONOCYTES # (AUTO) 0.3 10^3/uL (0.0-1.0); MONOCYTES % (AUTO) 2 % (0-12); NEUTROPHILS # (AUTO) 12.5 10^3/uL (1.8-7.8); NEUTROPHILS % (AUTO) 94 % (42-75); PLATELET COUNT 191 10^3/uL (130-400); WHITE BLOOD COUNT 13.2 10^3/uL (4.3-11.0)
[2021-04-20 06:04] LABS: ALBUMIN 3.3 GM/DL (3.2-4.5); POTASSIUM 4.3 MMOL/L (3.6-5.0)
[2021-04-20 06:05] LABS: CALCIUM 8.1 MG/DL (8.5-10.1)
[2021-04-20 06:07] LABS: TOTAL PROTEIN 5.9 GM/DL (6.4-8.2)
[2021-04-20 06:08] LABS: BILIRUBIN,TOTAL 7.7 MG/DL (0.1-1.0)
[2021-04-20 06:10] LABS: CREATININE SERUM 1.55 MG/DL (0.60-1.30)
[2021-04-20] MEDS: NS IV 1000 ML 1,000 ML IV SCH ×3 (07:24→23:54)
--- NOTE | 2021-04-20 07:38 | Progress Note - Surgery ---
KAREEN FAUSTIN 04/20/21 0738: Subjective Date Seen by a Provider: Apr 20, 2021 Time Seen by a Provider: 08:00 Subjective/Events-last exam PT is s/p lap roxana with IOC and partial choledochoscope for acute cholecystitis with choledochalithiasis partial obstruction. PT reports he is not feeling any pain since the surgery. He denies abdominal pain. He is urinating without complaints. He has not had a BM since the surgery. He is not ambulating and is not using an ICS Labs this morning of 04/20/21 showed total bilirubin of 7.7 ( increased from 3.8) , AST of 547 ( increased from 327), ALT of 280 ( increased from 112), ALK Phos of 141 ( decreased from 154), and WBC of 13.2 ( increased from 10.2). Has only been taking small sips of water occasionally since the procedure. Last sip of water was around 1000 this morning. Review of Systems General: No Fatigue, No Malaise HEENT: No Head Aches, No Visual Changes Pulmonary: No Dyspnea, No Cough Cardiovascular: Edema (legs ); No: Palpitations Gastrointestinal: No: Abdominal Pain, Diarrhea Genitourinary: No Dysuria, No Frequency Musculoskeletal: No: neck pain, hand pain Neurological: No: Weakness, Numbness Focused Exam Lactate Level 04/19/21 13:45: Lactic Acid Level 1.32 Objective Exam Vital Signs Date Time Temp Pulse Resp B/P (MAP) Pulse Ox O2 Delivery O2 Flow Rate FiO2 04/20/21 03:32 36.2 69 16 114/57 (76) 95 Nasal Cannula 2.00 04/19/21 23:15 37.0 18 130/72 (91) 95 Room Air 04/19/21 23:15 Room Air 04/19/21 23:15 Room Air 04/19/21 23:13 36.6 77 18 140/65 (90) 96 Room Air 04/19/21 23:10 18 132/74 (93) 96 Room Air 04/19/21 23:02 Room Air 04/19/21 23:00 18 130/69 (89) 95 Room Air 04/19/21 22:58 Room Air 04/19/21 22:55 OxyMask 2 04/19/21 22:52 OxyMask 4 04/19/21 22:50 OxyMask 6 04/19/21 22:50 18 155/76 (102) 100 OxyMask 4 04/19/21 22:40 20 164/95 (118) 100 OxyMask 6 04/19/21 22:40 OxyMask 6 04/19/21 22:30 20 174/99 (124) 100 OxyMask 6 04/19/21 22:24 OxyMask 6 04/19/21 22:24 37.5 20 165/87 (113) 95 OxyMask 6 04/19/21 19:28 Room Air 04/19/21 18:27 109 20 139/85 (103) 91 Room Air 04/19/21 18:10 Room Air 04/19/21 17:14 36.7 72 16 132/68 99 Room Air 04/19/21 13:40 37.1 78 18 155/78 (103) 98 Room Air I & O 04/20/21 07:00 Intake Total 1050 ml Output Total 625 ml Balance 425 ml Capillary Refill : Less Than 3 Seconds General Appearance: No Apparent Distress, Chronically ill HEENT: PERRL/EOMI, Other (dry mucous membranes ) Neck: Full Range of Motion, Non Tender, Supple Respiratory: Chest Non Tender, No Accessory Muscle Use, No Respiratory Distress, Rhonci (on left lung, heard anteriorly and posteriorly) Cardiovascular: Regular Rate, Rhythm, Normal Peripheral Pulses Peripheral Pulses: 2+ Radial Pulses (R), 2+ Radial Pulses (L) Gastrointestinal: soft, no organomegaly, hernia (large right, huge left with bowel incarceration), other (incisions without erythema) Extremity: No Calf Tenderness, Pedal Edema Neurologic/Psychiatric: Alert, Normal Mood/Affect, Other (stated year was 2021) Skin: Warm/Dry, Other (calves with bilateral venous stasis dermatitis, both feet are lumpy and swollen in appearance. ) Lymphatic: No Adenopathy (cervical) Results Lab Laboratory Tests 04/19/21 13:45: White Blood Count 10.2, Red Blood Count 3.79L, Hemoglobin 12.7L, Hematocrit 37L, Mean Corpuscular Volume 97, Mean Corpuscular Hemoglobin 34, Mean Corpuscular Hemoglobin Concent 35, Red Cell Distribution Width 14.3, Platelet Count 257, Mean Platelet Volume 9.2, Immature Granulocyte % (Auto) 0, Neutrophils (%) (Auto) 93H, Lymphocytes (%) (Auto) 3L, Monocytes (%) (Auto) 4, Eosinophils (%) (Auto) 0, Basophils (%) (Auto) 0, Neutrophils # (Auto) 9.5H, Lymphocytes # (Auto) 0.3L, Monocytes # (Auto) 0.4, Eosinophils # (Auto) 0.0, Basophils # (Auto) 0.0, Immature Granulocyte # (Auto) 0.0, Neutrophils % (Manual) 92, Lymphocytes % (Manual) 2, Monocytes % (Manual) 2, Metamyelocytes % 1, Band Neutrophils 3, Platelet Estimate ADEQUATE, Blood Morphology Comment NORMAL, Sodium Level 137, Potassium Level 4.5, Chloride Level 100, Carbon Dioxide Level 26, Anion Gap 11, Blood Urea Nitrogen 22H, Creatinine 1.58H, Estimat Glomerular Filtration Rate 43, BUN/Creatinine Ratio 14, Glucose Level 197H, Lactic Acid Level 1.32, Calcium Level 9.3, Corrected Calcium 8.9, Total Bilirubin 3.8H, Aspartate Amino Transf (AST/SGOT) 327H, Alanine Aminotransferase (ALT/SGPT) 112H , Alkaline Phosphatase 154H, Total Protein 7.7, Albumin 4.5, Lipase 28 04/19/21 15:11: Urine Color YELLOW, Urine Clarity CLEAR, Urine pH 7.5, Urine Specific [place] 1.015L, Urine Protein NEGATIVE, Urine Glucose (UA) 2+H, Urine Ketones NEGATIVE, Urine Nitrite NEGATIVE, Urine Bilirubin NEGATIVE, Urine Urobilinogen 0.2, Urine Leukocyte Esterase NEGATIVE, Urine RBC (Auto) TRACEH, Urine RBC RARE, Urine WBC RARE, Urine Squamous Epithelial Cells NONE, Urine Crystals NONE, Urine Bacteria NEGATIVE, Urine Casts NONE, Urine Mucus NEGATIVE, Urine Culture Indicated NO 04/20/21 05:31: White Blood Count 13.2H, Red Blood Count 3.17L, Hemoglobin 10.6L, Hematocrit 32L , Mean Corpuscular Volume 100H, Mean Corpuscular Hemoglobin 33, Mean Corpuscular Hemoglobin Concent 33, Red Cell Distribution Width 14.1, Platelet Count 191, Mean Platelet Volume 9.5, Immature Granulocyte % (Auto) 0, Neutrophils (%) (Auto ) 94H, Lymphocytes (%) (Auto) 3L, Monocytes (%) (Auto) 2, Eosinophils (%) (Auto) 0, Basophils (%) (Auto) 0, Neutrophils # (Auto) 12.5H, Lymphocytes # (Auto) 0.4L , Monocytes # (Auto) 0.3, Eosinophils # (Auto) 0.0, Basophils # (Auto) 0.0, Immature Granulocyte # (Auto) 0.0, Sodium Level 136, Potassium Level 4.3, Chloride Level 106, Carbon Dioxide Level 20L, Anion Gap 10, Blood Urea Nitrogen 20H, Creatinine 1.55H, Estimat Glomerular Filtration Rate 44, BUN/Creatinine Ratio 13, Glucose Level 152H, Calcium Level 8.1L, Corrected Calcium 8.7, Total Bilirubin 7.7#H, Aspartate Amino Transf (AST/SGOT) 547H, Alanine Aminotransferase (ALT/SGPT) 280H, Alkaline Phosphatase 141H, Total Protein 5.9L, Albumin 3.3 Assessment/Plan Assessment/Plan Assessment/Plan Assessment: Acute Cholecystitis with Cholelithiasis and possible choledochalithiasis B/L Inguinal hernias - incacerated HTN, DM Plan: Total bilirubin, AST, ALT, are suggestive of continue choledocalithiasis. Plan is for ERCP. Risks and benefits of procedure will be discussed with the patient. Consent will be obtained before ERCP. PT will continue NPO, wtih IV fluids, IV ABX, pain control and anti-emetics. DIANN ROBLEDO DO 04/20/21 1207: Subjective Time Seen by a Provider: 11:11 Subjective/Events-last exam Pt seen and examined, denies abdomnal pain. He is NPO. Review of Systems General: No Chills; Malaise Pulmonary: No Dyspnea, No Cough Cardiovascular: Edema (legs ); No: Palpitations Gastrointestinal: No: Abdominal Pain, Diarrhea Objective Exam General Appearance: No Apparent Distress, Chronically ill HEENT: Scleral Icterus (L), Scleral Icterus (R), Other (dry mucous membranes ) Respiratory: No Accessory Muscle Use, No Respiratory Distress, Rhonci (on left lung, heard anteriorly and posteriorly) Cardiovascular: Regular Rate, Rhythm, Systolic Murmur Gastrointestinal: soft, no organomegaly, hernia (large right, huge left with bowel incarceration), other (incisions without erythema, TEDDY drain has serosanguinous fluid) Extremity: Pedal Edema, Other (chronic venous stasis changes and an 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 B/L Inguinal hernias - incacerated HTN, DM Plan is to send pt for ERCP; will call around to find accepting place. PT will continue NPO, wtih IV fluids, IV ABX, pain control and anti-emetics. Supervisory-Addendum Brief Verification & Attestation Participated in pt care: history, MDM, physical Personally performed: exam, history, MDM, supervision of care Care discussed with: Medical Student Procedures: n/a Verification and Attestation of Medical Student E/M Service A medical student performed and documented this service. I then reviewed and verified all information documented by the medical student and made modifications to such information, when appropriate. I personally performed a physical exam, medical decision making and then discussed any differences between the notes and made revisions as necessary to create one note. Diann Robledo , 04/20/21 , 12:08 KAREEN FAUSTIN Apr 20, 2021 07:38 DIANN ROBLEDO DO Apr 20, 2021 12:07
--- NOTE | 2021-04-20 08:46 | OPERATIVE REPORT ---
DATE OF SERVICE: 04/19/2021 PREOPERATIVE DIAGNOSES: Acute cholecystitis with cholelithiasis, possible choledocholithiasis. POSTOPERATIVE DIAGNOSES: Acute cholecystitis with cholelithiasis with choledocholithiasis and partial obstruction. Also bilateral incarcerated inguinal hernia as well as history of diabetes and hypertension. PROCEDURE: 1. Laparoscopic cholecystectomy with intraoperative cholangiogram. 2. Attempted choledochoscope. SURGEON: Shad Robledo DO ELECTRIC TRAIN DRIVER: Victor Manuel Mcdermott DO. ANESTHESIA: General endotracheal tube. SPECIMEN: Gallbladder and contents. BLOOD LOSS: Less than 50 mL. FLUIDS: Per anesthesia. POSTOPERATIVE CONDITION: Stable. INDICATION FOR PROCEDURE: The patient is a 76-year-old male who has been having some abdominal pain, had a CAT scan, which showed some stones and ultrasound, which showed pericholecystic fluid. FINDINGS: The patient had a very edematous gallbladder beginning to get petechiae, looking like the gallbladder was starting to become necrotic. He had a lot of stones in it, looked like he may have had at least a partial obstruction from stone in the common bile duct. He also had a large incarcerated bilateral inguinal hernia. PROCEDURE NOTE: After informed consent was obtained, the patient was brought to the operating room, placed on the table in supine position. He was sterilely prepped and draped in normal fashion. Local lidocaine was used to infiltrate the skin above the umbilicus. I made the incision with 11 blade, carried down through the skin into subcutaneous tissue, then deepened down to subcutaneous tissue with Bovie electrocautery down to the fascia. Fascia was incised with Bovie electrocautery, bluntly entered the abdomen, swept a finger around, placed 0 Vicryl iboxzs-pn-girbt suture, then placed 11 mm trocar port under direct visualization. Created pneumoperitoneum and then placed 3 more ports in normal fashion using local lidocaine, 11 blade for stab incision and VersaStep system, all done under direct visualization, 1 subxiphoid and 2 in the right upper quadrant. Upon entry, noted the gallbladder was very distended, had a greenish hue to it and then looking on the side, there was some petechiae looking like the beginnings of the necrosis, grasped the gallbladder at the fundus and took in superior direction. Started trying to dissect out the cystic duct and cystic artery, encountered the cystic artery was enlarged, able to get around it, placed a clip proximally and then 2 distally and cut with Metzenbaum scissors. Continued trying to dissect out the cystic duct. The duct and the body of the gallbladder were very large going down towards the small intestine and while trying to dissect off the fat and try to free up to see where we could find the cystic duct, made a small hole in the gallbladder, some black stones came out, had a colleague Dr. Mcdermott to help with this case because it is more difficult, needed him to help get this case done. Continued to try and dissect out the cystic duct, unable to really get down to this and so at this point, started taking the gallbladder down from the top going along the bed of liver with the Bovie electrocautery, L-hook cautery was used taking the gallbladder down. We got about fci down and then cut the gallbladder at the top the gallbladder off to remove this, to be able to look inside, had tried a couple times before to get a cholangiogram in, could not get it to thread down, put a choledochoscope inside and tried to get the choledochoscope down the cystic duct. Unfortunately, it was very corkscrewed and could not get it down; so then cut the gallbladder cut the top half off, continued take it down, going down right along the gallbladder into the Joshua's pouch and then towards the cystic duct, able to then finally get a cholangiogram in and shot a couple cholangiograms, but we could not get the dye to go in, at this time, we are able to get the cholangiocatheter to go further down and we were able to shoot a cholangiogram, got good spillage of dye down the cystic duct, it was very corkscrewed down into the common bile duct and down in the small intestine, could see some stones in the base and the ampulla of Vater, but did get some contrast into the small intestine and then it went up the common hepatic just a little bit. At this point, I then removed the cholangiogram catheter, placed 2-0 PDS looped suture to go across the distal portion of the cystic duct and then tightened this down, then cut the suture and then cut the rest of the gallbladder off, we are positive that we have come right down along the gallbladder and not getting close to the common bile duct at all. At this point, we placed a bag in the abdomen, placed both portions of the gallbladder into the bag and then picked up all the stones and put them in the bag as well. There was some bleeding from the bed of the liver. This was controlled with Bovie electrocautery. We also elected to place Surgicel and then also elected to place a TEDDY drain 19-[place] Jonathan drain, brought out through the most lateral incision, sutured in place with 2-0 silk. Copiously irrigated with normal saline, took pictures of the incarcerated inguinal hernia. The one on the right was just fat, the one on the left was intestine and all the intestine looked viable, tried to push it up, we could not get all of it out. It was stuck in there. At this point, placed the patient flat. This whole case took about 2.5 hours, removed all ports under direct visualization, allowed pneumoperitoneum to escape, closed the supraumbilical incision with the 0 Vicryl uirgrn-dj-yymjz suture already placed. Irrigated incisions and then closed the 2 small 5 mm incisions with a single interrupted 4-0 undyed Monocryl subcuticular stitch, closed supraumbilical incision with 3 interrupted 4-0 undyed Monocryl subcuticular stitches. The far right incision had the TEDDY drain in it. Area was cleaned and dried, dressings placed. The patient was transferred to recovery room in stable condition. Sponge, instrument and needle count correct at the end of the case. Dr. Mcdermott assisted in this case helping to make incisions, close incisions, identify anatomy, hold anatomy out of the way. He allowed this case to be able to finish this case and made it safer for the patient. Job ID: [id number] DocumentID: [id number] Dictated Date: 04/20/2021 00:30:08 Skip Load Driver Date: 04/20/2021 07:59:23 Dictated By: DO SYMONE BERMUDEZ
[2021-04-20] MEDS ORDERED: CITA20TA9 PO (09:15)
[2021-04-20] MEDS ORDERED: AMLO-251 PO (09:15)
[2021-04-20] MEDS ORDERED: LISI1TAB29 PO (09:18)
[2021-04-20] MEDS ORDERED: POTA10TA PO (09:18)
[2021-04-20] MEDS ORDERED: ACET-2267 PO (09:18)
[2021-04-20] MEDS ORDERED: prevagen (09:20)
[2021-04-20] MEDS ORDERED: PREVAGEN PO (09:23)
--- NOTE | 2021-04-20 15:29 | Anesthesia-General Post-Op ---
General Patient Condition Mental Status/LOC: Same as Preop Cardiovascular: Satisfactory Nausea/Vomiting: Absent Respiratory: Satisfactory Pain: Controlled Complications: Absent Post Op Complications Complications None Follow Up Care/Instructions Patient Instructions None needed. Anesthesia/Patient Condition Patient Condition Patient is doing well, no complaints, stable vital signs, no apparent adverse anesthesia problems. JOSE GRIFFIN DO Apr 20, 2021 15:29
[2021-04-20] MEDS ORDERED: ACETAMINOPHEN 500 MG TAB (TYLENOL) PO PRN (16:15)
[2021-04-20] MEDS: fentaNYL INJ 100 MCG/2 ML AMP IV PRN ×2 (16:32→23:18)
[2021-04-21] VITALS (13 sets, daily range): BP systolic 151–168; BP diastolic 73–93
[2021-04-21 05:35] LABS: BASOPHILS % (AUTO) 0 % (0-10); EOSINOPHILS % (AUTO) 0 % (0-10); HEMATOCRIT 35 % (40-54); HEMOGLOBIN 11.6 g/dL (13.3-17.7); LYMPHOCYTES # (AUTO) 0.3 10^3/uL (1.0-4.0); LYMPHOCYTES % (AUTO) 2 % (12-44); MEAN CORPUSCULAR HEMOGLOBIN 33 pg (25-34); MEAN CORPUSCULAR HGB CONC 33 g/dL (32-36); MEAN CORPUSCULAR VOLUME 100 fL (80-99); MEAN PLATELET VOLUME 9.5 fL (9.0-12.2); MONOCYTES # (AUTO) 0.2 10^3/uL (0.0-1.0); MONOCYTES % (AUTO) 2 % (0-12); NEUTROPHILS # (AUTO) 10.5 10^3/uL (1.8-7.8); NEUTROPHILS % (AUTO) 95 % (42-75); PLATELET COUNT 184 10^3/uL (130-400); WHITE BLOOD COUNT 11.1 10^3/uL (4.3-11.0)
[2021-04-21 05:54] LABS: ALBUMIN 3.2 GM/DL (3.2-4.5)
[2021-04-21 05:56] LABS: CALCIUM 8.2 MG/DL (8.5-10.1)
[2021-04-21 05:57] LABS: TOTAL PROTEIN 6.2 GM/DL (6.4-8.2)
[2021-04-21 05:59] LABS: BILIRUBIN,TOTAL 6.4 MG/DL (0.1-1.0)
[2021-04-21 06:00] LABS: PHOSPHORUS 2.2 MG/DL (2.3-4.7)
[2021-04-21 06:01] LABS: CREATININE SERUM 1.5 MG/DL (0.60-1.30)
[2021-04-21 06:04] LABS: MAGNESIUM 1.6 MG/DL (1.6-2.4)
[2021-04-21] MEDS ORDERED: hydrALAZINE (APESOLINE) 20 MG/ML VIAL IV PRN (06:15)
[2021-04-21] MEDS ORDERED: MAGNESIUM 1 GM/100 ML IVPB 200 ML IV ONE (06:18)
[2021-04-21] MEDS: MAGNESIUM 1 GM/100 ML IVPB 100 ML IV SCH ×2 (06:19→08:02)
--- NOTE | 2021-04-21 06:29 | Consultation - Hospitalist ---
HPI History of Present Illness: HPI/Chief Complaint Pt is a 76-year-old man with a history of hypertension and depression who was admitted for laparoscopic cholecystectomy. He underwent surgery yesterday which revealed choledocholithiasis. He had transfer arranged to [place] for ERCP but apparently after conversation with a visitor he declined transfer. Shortly after that he started to decompensate and developed a fever of 39.1 and had a marked increase in his total bili from 3.8-7.7. He also became quite confused. He was transferred to the ICU. I am consulted for medical management. He is able to tell me now that he is willing to go to [place] for ERCP though otherwise is perseverating on obtaining a white T-shirt so that he can get his d og from his neighbor. Source: patient Exam Limitations: clinical condition Date Seen 04/21/21 Attending Physician Shad Robledo DO PCP Carlos Lester DO Referring Physician Date of Admission Apr 19, 2021 at 17:59 Home Medications & Allergies Home Medications Reviewed patient Home Medication Reconciliation performed by pharmacy medication reconciliations central sterilization technician and/or nursing. Patients Allergies have been reviewed. Allergies Allergies Coded Allergies Penicillins (Verified Allergy, Unknown, 07/18/20) Sulfa (Sulfonamide Antibiotics) (Verified Allergy, Unknown, 07/18/20) Past Clkrebf-Tjcayr-Jttkac Hx Patient Social History Employed/Student: retired Tobacco Use?: No Smoking Status: Never a Smoker Smokeless Tobacco Frequency: Never a User Use of E-Cig and/or Vaping dev: Unable to obtain Substance use?: No Alcohol Use?: Yes Alcohol type: Beer Alcohol Frequency: Once in a while Pt feels they are or have been: No Immunizations Up To Date First/Initial COVID19 Vaccinat: DECEMBER 2020 Second COVID19 Vaccination Serafin: DECEMBER 2020 Tetanus Booster (TDap): Unknown Hepatitis A: No Hepatitis B: No Seasonal Allergies Seasonal Allergies: No Current Status Advance Directives: Yes Advance Directive Location: [facility] Communicates: Verbally Primary Language: Frisian Preferred Spoken Language: Frisian Is interpretation needed?: No Implanted or Applied Medical D: None Past Medical History Hypertension Renal Failure Diabetes, Insulin dep Blood Disorders: No Adverse Reaction/Blood Tranf: No Family Medical History Reviewed Nursing Family Hx Heart Disease (Father), Other Conditions/Hx (Mother had alzheimers) Review of Systems ROS-Unable to Obtain: confusion Constitutional: see HPI Physical Exam Physical Exam Vital Signs Vital Signs - First Documented 04/19/21 13:40 Temp 37.1 Pulse 78 Resp 18 B/P (MAP) 155/78 (103) Pulse Ox 98 O2 Delivery Room Air Capillary Refill : Less Than 3 Seconds Height, Weight, BMI Height: 5'2.00" Weight: 150lbs. oz. 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 Imaging: Reviewed Imaging Report Imaging [facility], [place] NAME: JOAO HARDY [facility] REC#: [id number] PT STATUS: REG ER : 1945 PHYSICIAN: KUNAL OLMOS MD ADMIT DATE: 04/19/21/ER FS Signed Date of Exam:04/19/21 CT ABDOMEN/PELVIS WO PROCEDURE: CT abdomen and pelvis without contrast. TECHNIQUE: Multiple contiguous axial images were obtained through the abdomen and pelvis without the use of intravenous contrast. Auto Exposure Controls were utilized during the CT exam to meet ALARA standards for radiation dose reduction. INDICATION: Nausea, emesis, and diarrhea. FINDINGS: Linear atelectasis and/or scarring is noted in the lung bases. Note is also made of coronary artery calcification. Unenhanced images of the liver and spleen reveal no focal abnormality. There is mild hiatal hernia. Gallbladder is distended and contains multiple stones within the dependent portion. There is mild intra- and extra-hepatic biliary ductal prominence with mild high density near the ampulla of Vater. No pancreatic lesion is identified. Adrenal glands are unremarkable. Evaluation of the kidneys is somewhat limited without intravenous contrast; however, there is no evidence of mass, stone, or hydronephrosis. There is renal asymmetry with smaller right kidney noted. There is no free fluid in the abdomen or pelvis, and no bowel dilatation is identified. There is a large hernia extending through the left inguinal canal containing omentum and loops of small and large bowel. There is also fat-containing right inguinal hernia. IMPRESSION: 1. Large left inguinal hernia without definite obstruction. There is also fat-containing right inguinal hernia and cholelithiasis noted. 2. Small amount of hyperdensity is seen near ampulla of Vater, which may represent choledocholithiasis. Correlation with pancreatic and hepatic enzymes may be of use. Dictated by: Dictated on workstation # [id number] Dict: 04/19/21 1413 Trans: 04/19/211715 [id number] Interpreted by: RHONDA FANG MD Electronically signed by: RHONDA FANG MD 04/19/21 1716 [facility] [place] NAME: JOAO HARDY [facility] REC#: [id number] PT STATUS: REG ER : 1945 PHYSICIAN: KUNAL OLMOS MD ADMIT DATE: 04/19/21/ER FS Signed Date of Exam:04/19/21 US GALLBLADDER [id number] PROCEDURE: US Gallbladder. TECHNIQUE: Multiple real-time grayscale images were obtained over the right upper quadrant in various projections. INDICATION: Nausea, emesis, and elevated liver function tests. FINDINGS: Liver measures 18 cm in length without focal hepatic abnormality identified, although the left lobe of the liver is largely obscured by overlying bowel. Gallbladder is dilated with cholelithiasis and mild pericholecystic free fluid. Wall thickness is 0.2 cm. The common bile duct reaches 1.1 cm in diameter. No right renal abnormality is identified apart from mild diffuse cortical thinning. Visualized portions of the proximal pancreas are unremarkable. There is suggestion of echogenic material in the pancreatic head, which may reside within the distal common bile duct. No abdominal aortic or inferior vena caval abnormality is identified. There may be a small amount of pericholecystic fluid. IMPRESSION: Cholelithiasis and possible choledocholithiasis with gallbladder distention and pericholecystic fluid. This does raise concern for possible distal common bile duct obstruction and developing acute cholecystitis. Clinical correlation is recommended. ERCP may be of value for further assessment. Dictated by: Dictated on workstation # [id number] Dict: 04/19/21 1609 Trans: 04/19/21 1717 [id number] Interpreted by: RHONDA FANG MD Electronically signed by: RHONDA FANG MD 04/19/21 1717 Assessment/Plan Assessment and Plan Assess & Plan/Chief Complaint Sesis due to Acute cholecystitis with Choledocholithiasis Hyperbilirubinemia s/p lap roxana Attempting to arrange transfer for ERCP Continue on IV abx add blood cultures Pain regimen liver enzymes improving today and t bili trending down Debility Dementia PT/OT after ERCP Social work consulted, appreciate recs DPOA to provide paperwork on Friday CKD3 At baseline, trend Continue IVF HTN Trending up IV hydralazine prn as is NPO T2DM Last a1c was here and 5.9, well controlled Fasting blood sugar this AM was 100 DVT prophylaxis: Lovenox when ok with primary Diagnosis/Problems Diagnosis/Problems (1) Acute cholecystitis due to biliary calculus Status: Acute (2) Elevated LFTs Status: Acute (3) Type 2 diabetes mellitus Status: Chronic Qualifiers: Diabetes mellitus intermodal truck driver insulin use: without care home use Diabetes mellitus complication status: with kidney complications Diabetes mellitus complication detail: with chronic kidney disease Chronic kidney disease stage: stage 3 (moderate) Chronic kidney disease stage 3 subtype: stage 3b (GFR 30- 44) Qualified Codes: E11.22 - Type 2 diabetes mellitus with diabetic chronic kidney disease; N18.32 - Chronic kidney disease, stage 3b (4) Hypertension Status: Acute Qualifiers: Hypertension type: unspecified Qualified Codes: I10 - Essential (primary) hypertension (5) Debility Status: Acute (6) Dementia Status: Chronic Qualifiers: Dementia type: unspecified type Dementia behavioral disturbance: without behavioral disturbance Qualified Codes: F03.90 - Unspecified dementia without behavioral disturbance (7) CKD (chronic kidney disease) stage 3, GFR 30-59 ml/min Status: Chronic Qualifiers: Chronic kidney disease stage 3 subtype: stage 3b (GFR 30-44) Qualified Codes: N18.32 - Chronic kidney disease, stage 3b TOBY RIBERA MD Apr 21, 2021 06:29
[2021-04-21] MEDS: ONDANSETRON 4 MG/2 ML (SDV) Z0FRAN IV PRN (08:07)
[2021-04-21] MEDS: fentaNYL INJ 100 MCG/2 ML AMP IV PRN (08:07)
[2021-04-21] MEDS: NS IV 1000 ML 1,000 ML IV SCH (08:15)
--- NOTE | 2021-04-21 09:14 | Progress Note - Surgery ---
CRISTOBAL DAMIAN 04/21/21 0914: Subjective Date Seen by a Provider: Apr 21, 2021 Time Seen by a Provider: 07:56 Subjective/Events-last exam PT is s/p treasure roxana for acute cholecystitis with choledochalithiasis partial obstruction. He currently resting in bed and able to answer questions. His total billirubin today is 6.4, down from 7.7 yesterday, AST is 164, down from 547 yesterday, ALT is 188, down from 280. PT reports pain from RLQ around the drain site, which produces serious sanguinous fluid. He has not had a BM since the surgery. He is not ambulating and is not currently using an ICS . He will transfer to [facility] today for ERCP. Review of Systems General: No Chills, No Night Sweats, No Fatigue, No Malaise HEENT: No Head Aches, No Eye Pain, No Ear Pain, No Dysphasia, No Sinus Congestion, No Post Nasal Drip, No Sore Throat Pulmonary: No Dyspnea, No Cough, No Pleuritic Chest Pain Cardiovascular: No: Chest Pain, Palpitations, Orthopnea, Paroxysmal Noc. Dyspnea, Edema, Lt Headedness Gastrointestinal: Abdominal Pain; No: Nausea, Vomiting, Diarrhea, Constipation, Melena, Hematochezia Genitourinary: No Dysuria, No Frequency, No Incontinence, No Hematuria, No Ret ention Musculoskeletal: leg pain; No: neck pain, shoulder pain, arm pain, back pain, hand pain, foot pain Neurological: Weakness; No: Numbness, Incoordination, Change in speech, Confusion, Seizures incisional pain. Focused Exam Lactate Level 04/19/21 13:45: Lactic Acid Level 1.32 Objective Exam Vital Signs Date Time Temp Pulse Resp B/P (MAP) Pulse Ox O2 Delivery O2 Flow Rate FiO2 04/21/21 08:01 37.8 04/21/21 08:00 98 20 167/86 (126) 95 High Flow N/C 6.00 04/21/21 07:00 96 20 161/89 (108) 93 High Flow N/C 6.00 04/21/21 07:00 95 04/21/21 06:00 100 18 168/78 (108) 96 High Flow N/C 6.00 04/21/21 05:00 93 14 154/89 (110) 94 High Flow N/C 6.00 04/21/21 04:00 96 20 155/73 (100) 90 High Flow N/C 6.00 04/21/21 03:57 High Flow N/C 6.00 04/21/21 03:00 89 21 156/91 (112) 91 High Flow N/C 6.00 04/21/21 02:00 89 14 156/76 (102) 91 High Flow N/C 6.00 04/21/21 01:00 85 28 151/74 (99) 89 High Flow N/C 6.00 04/21/21 01:00 85 04/21/21 00:02 37.3 04/21/21 00:00 87 26 156/77 (103) 91 High Flow N/C 6.00 04/20/21 23:39 High Flow N/C 6.00 04/20/21 23:30 High Flow N/C 6.00 04/20/21 23:20 Nasal Cannula 5.00 04/20/21 23:00 89 25 149/76 (100) 91 Nasal Cannula 4.00 04/20/21 21:30 90 14 145/76 (99) 95 Nasal Cannula 4.00 04/20/21 21:00 83 19 134/72 (92) 96 Nasal Cannula 4.00 04/20/21 20:30 79 20 121/64 (83) 95 Nasal Cannula 4.00 04/20/21 20:15 83 22 127/65 (85) 92 Nasal Cannula 4.00 04/20/21 20:01 82 04/20/21 20:00 Nasal Cannula 4.00 04/20/21 19:53 37.7 82 24 137/76 (96) 92 Nasal Cannula 4.00 04/20/21 19:45 82 22 137/76 (96) 92 Nasal Cannula 4.00 04/20/21 18:36 38.4 04/20/21 17:00 39.0 04/20/21 16:17 39.0 04/20/21 15:38 39.1 89 18 161/75 (103) 89 Nasal Cannula 3.00 04/20/21 13:54 Nasal Cannula 2.00 04/20/21 12:00 36.8 71 18 110/63 (79) 91 Nasal Cannula 2.00 I & O 04/21/21 07:00 Intake Total 0 ml Output Total 1600 ml Balance -1600 ml Capillary Refill : Less Than 3 Seconds General Appearance: No Apparent Distress, Chronically ill, Thin HEENT: PERRL/EOMI, Other (dryness with dark patch on soft palate, poor dentation) Neck: Normal Inspection, Supple Respiratory: Lungs Clear, Normal Breath Sounds, No Accessory Muscle Use, No Respiratory Distress, Other (on 6lpm) Cardiovascular: Normal Peripheral Pulses, Systolic Murmur, Tachycardia Peripheral Pulses: 2+ Radial Pulses (R), 2+ Radial Pulses (L) Gastrointestinal: soft, no organomegaly, hernia (large right, huge left with bowel incarceration), other (incisions without erythema, TEDDY drain has serosanguinous fluid) Extremity: Normal Capillary Refill, Normal Range of Motion, Pedal Edema, Other (chronic venous stasis changes and an 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) Neurologic/Psychiatric: Alert, Disoriented Skin: Warm/Dry; No Mottled; Other (bilateral lower legs with venous stasis dermatitis) Lymphatic: No Adenopathy (cervical and axillary) Results Lab Laboratory Tests 04/21/21 05:14: White Blood Count 11.1H, Red Blood Count 3.49L, Hemoglobin 11.6L, Hematocrit 35L , Mean Corpuscular Volume 100H, Mean Corpuscular Hemoglobin 33, Mean Corpuscular Hemoglobin Concent 33, Red Cell Distribution Width 14.3, Platelet Count 184, Mean Platelet Volume 9.5, Immature Granulocyte % (Auto) 1, Neutrophils (%) (Auto) 95H, Lymphocytes (%) (Auto) 2L, Monocytes (%) (Auto) 2, Eosinophils (%) (Auto) 0, Basophils (%) (Auto) 0, Neutrophils # (Auto) 10.5H, Lymphocytes # (Auto) 0.3L, Monocytes # (Auto) 0.2, Eosinophils # (Auto) 0.0, Basophils # (Auto) 0.0, Immature Granulocyte # (Auto) 0.1, Sodium Level 138, Potassium Level 4.0, Chloride Level 108H, Carbon Dioxide Level 17L, Anion Gap 13, Blood Urea Nitrogen 20H, Creatinine 1.50H, Estimat Glomerular Filtration Rate 46, BUN/Creatinine Ratio 13, Glucose Level 100, Calcium Level 8.2L, Corrected Calcium 8.8, Phosphorus Level 2.2L, Magnesium Level 1.6, Total Bilirubin 6.4H, Aspartate Amino Transf (AST/SGOT) 164H, Alanine Aminotransferase (ALT/SGPT) 188H , Alkaline Phosphatase 149H, Total Protein 6.2L, Albumin 3.2 Microbiology 04/19/21 MRSA Screen - Final, Complete MRSA not isolated Assessment/Plan Assessment/Plan Assessment/Plan S/P Lap roxana Choledochalithiasis - has partial possible complete obstruction. B/L Inguinal hernias - incacerated HTN, DM Plan is to send pt for ERCP at [facility]. PT will continue NPO, wtih IV fluids, IV ABX, pain control and anti-emetics. DILIA MCDERMOTT DO 04/21/21 1414: Subjective Subjective/Events-last exam Dr. Robledo had arranged for transfer to [facility] for ERCP. Patient then had declined transfer understood risk of complications. Last night patient change his mind and would like to proceed with transfer. [facility] last night agreed to continue transfer this morning since patient agreeable. Patient became febrile last night with a T-max of 39. Patient pain controlled. Patient has no new complaints. Bilirubin is 6.4 today. Objective Exam General Appearance: Chronically ill, Thin HEENT: PERRL/EOMI, Other (dryness with dark patch on soft palate, poor dentation) Neck: Normal Inspection, Supple Respiratory: Chest Non Tender, No Accessory Muscle Use, No Respiratory Distress Cardiovascular: Regular Rate, Rhythm, No JVD Gastrointestinal: soft, tenderness (Incisional), hernia (large right, huge left with bowel incarceration), other (incisions without erythema, TEDDY drain has serosanguinous fluid) Neurologic/Psychiatric: Alert, Normal Mood/Affect Skin: Warm/Dry, Other (bilateral lower legs with venous stasis dermatitis) Lymphatic: No Adenopathy (cervical and axillary) Assessment/Plan Assessment/Plan Assessment/Plan S/P Lap roxana Choledochalithiasis - has partial possible complete obstruction. B/L Inguinal hernias - incacerated HTN, DM Patient for ERCP at [facility] in [place]. Transfer had already been arranged by Dr. Robledo. Since patient was agreeable last night to proceed with transfer will transfer to [facility]. PT will continue NPO, wtih IV fluids, IV ABX, pain control and anti-emetics. Supervisory-Addendum Brief Verification & Attestation Participated in pt care: history, MDM, physical Personally performed: exam, history, MDM, supervision of care Care discussed with: Medical Student Procedures: n/a Results interpretation: Verified all documentation Verification and Attestation of Medical Student E/M Service A medical student performed and documented this service in my presence. I reviewed and verified all information documented by the medical student and made modifications to such information, when appropriate. I personally performed the physical exam and medical decision making. Dilia Mcdermott, Apr 21, 2021,08:14 CRISTOBAL DAMINA Apr 21, 2021 09:14 DILIA MCDERMOTT DO Apr 21, 2021 14:14
[2021-04-22] MEDS ORDERED: MAGNESIUM 1 GM/100 ML IVPB 100 ML IV SCH (06:00)
[2021-04-22] MEDS ORDERED: POTASSIUM CL 10MEQ/50ML IVPB 50 ML IV SCH (06:00)
[2021-04-22] MEDS ORDERED: KCL 20 MEQ TAB (K-DUR) PO SCH (06:00)
== END 2021-04-21 12:45 | disposition short-term general hospital (02) ==
LOC: EDUNIT# 13:32 → ER FS 13:36 → 4TH 17:59 → UNDOADMOB 17:59 → 4TH 17:59 → SDC 17:59 → ICU 04-20 20:03 → 4TH 04-20 20:03 → SDC 04-21 12:45 → ICU 04-21 21:51 → UNDODISOB 04-24 09:01
PROVIDERS: ATTEND Surgery
DX: K80.67 Calculus of gallbladder and bile duct with acute and chronic cholecystitis with obstruction (principal); K40.00 Bilateral inguinal hernia, with obstruction, without gangrene, not specified as recurrent; F32.9 Major depressive disorder, single episode, unspecified; E80.6 Other disorders of bilirubin metabolism; R53.81 Other malaise; F03.90 Unspecified dementia, unspecified severity, without behavioral disturbance, psychotic disturbance, mood disturbance, and anxiety; R79.89 Other specified abnormal findings of blood chemistry; I12.9 Hypertensive chronic kidney disease with stage 1 through stage 4 chronic kidney disease, or unspecified chronic kidney disease; E11.622 Type 2 diabetes mellitus with other skin ulcer; E11.22 Type 2 diabetes mellitus with diabetic chronic kidney disease; N18.30 Chronic kidney disease, stage 3 unspecified; Z79.899 Other long term (current) drug therapy; Z79.4 Long term (current) use of insulin
CPT/HCPCS: 36415; 74176; 76000; 76705; 80053; 81000; 83605; 83690; 83735; 84100; 85007; 85025; 85027; 87040; 87081; 88304; 96374; 96375

== ENCOUNTER 2021-05-29 15:27 | Emergency (ER) | payer MEDICARE ==
[~2021-05-29] VITALS: Ht 170 cm; Wt 68.0 kg
[~2021-05-29 15:27] MED LIST changes: +ACET-2267 PO; +LISI1TAB29 PO; +PREVAGEN PO; +prevagen
[2021-05-29 16:00] LABS: BILIRUBIN,URINE NEGATIVE (NEGATIVE); CLARITY,URINE SL CLOUDY; COLOR,URINE YELLOW; GLUCOSE, URINE (UA) NEGATIVE (NEGATIVE); KETONES,URINE NEGATIVE (NEGATIVE); LEUKOCYTE ESTERASE ,URINE 1+ (NEGATIVE); NITRITE,URINE NEGATIVE (NEGATIVE); PH,URINE 7.5 (5-9); PROTEIN,URINE TRACE (NEGATIVE)
[2021-05-29 16:07] LABS: BACTERIA,URINE LARGE /HPF
[2021-05-29] MEDS ORDERED: NS IV 1000 ML 1,000 ML IV SCH (16:30)
--- NOTE | 2021-05-29 16:30 | ED General ---
General Chief Complaint: General Problems/Pain Stated Complaint: UTI SYMPTOMS Nursing Triage Note: RI REPORTS PT HAS BEEN MORE LETHARGIC THAN USUAL. REQUESTED A URINALYSIS. Source of Information: Patient Exam Limitations: Other History of Present Illness Date Seen by Provider: May 29, 2021 Time Seen by Provider: 15:30 Initial Comments Patient is a 76-year-old male with recurrent urinary tract infections encephalopathy presents with local assisted with reports of increased somnolence and generalized weakness. Patient alert and oriented to person place on ED arrival. He denies headache, blurred vision, fever chills, nausea vomiting or sweats. He denies cough, sore throat, chest pain, shortness of breath. No abdominal pain. Denies urinary frequency urgency or dysuria. Denies dizziness, confusion, difficulty concentrating, or increased somnolence. No leg pain or swelling. No other acute symptoms or complaint Severity: Mild Modifying Factors: improves with Other (Confusion) Associated Systoms: Other Allergies and Home Medications Allergies Coded Allergies: Penicillins (Verified Allergy, Unknown, 07/18/20) Sulfa (Sulfonamide Antibiotics) (Verified Allergy, Unknown, 07/18/20) Patient Home Medication List Home Medication List Reviewed: Yes Acetaminophen (Tylenol Extra Strength) 500 Mg Tablet, 500 MG PO Q8H PRN for PAIN-MILD (1-4), (Reported) Entered as Reported by: KENYA BELLA on 04/20/21917 Amlodipine Besylate (Amlodipine Besylate) 10 Mg Tablet, 10 MG PO HS, (Reported) Entered as Reported by: KENYA BELLA on 04/20/21914 Citalopram Hydrobromide (Citalopram HBr) 20 Mg Tablet, 20 MG PO HS, (Reported) Entered as Reported by: KENYA BELLA on 04/20/21914 Potassium Chloride (K-Tab ER) 10 Meq Tablet.er, 10 MEQ PO DAILY, (Reported) Entered as Reported by: KENYA BELLA on 04/20/21917 [Prevagen] , 1 EA PO BID, (Reported) Entered as Reported by: KENYA BELLA on 04/20/21922 Review of Systems Review of Systems Constitutional: see HPI EENTM: see HPI Respiratory: see HPI Cardiovascular: see HPI Gastrointestinal: see HPI Genitourinary: see HPI Musculoskeletal: see HPI Skin: see HPI Psychiatric/Neurological: See HPI Hematologic/Lymphatic: See HPI Immunological/Allergic: see HPI All Other Systems Reviewed Negative Unless Noted: Yes Past Lsnoziq-Bsdcla-Mubwak Hx Patient Social History Tobacco Use?: Yes Use of E-Cig and/or Vaping dev: No Substance use?: No Alcohol Use?: No Immunizations Up To Date First/Initial COVID19 Vaccinat: DECEMBER 2020 Second COVID19 Vaccination Serafin: DECEMBER 2020 Seasonal Allergies Seasonal Allergies: No Past Medical History Surgeries: No Respiratory: No Cardiac: Yes Hypertension Neurological: No Genitourinary: Yes (Hernia in the scrotum) Renal Failure Gastrointestinal: No Musculoskeletal: No Endocrine: Yes Diabetes, Insulin dep HEENT: No Cancer: No Psychosocial: No Integumentary: Yes (diabetic ulcers) Blood Disorders: No Adverse Reaction/Blood Tranf: No Family Medical History Heart Disease, Other Conditions/Hx Physical Exam Vital Signs Vital Signs - First Documented 05/29/21 15:27 Temp 37.3 Pulse 83 Resp 18 B/P (MAP) 105/65 (78) Pulse Ox 99 O2 Delivery Room Air Capillary Refill : Less Than 3 Seconds Height, Weight, BMI Height: 5'2.00" Weight: 150lbs. oz. 68.543969gw; 23.00 BMI Method:Stated General Appearance: No Apparent Distress, Anxious Eyes: Bilateral Eye Normal Inspection, Bilateral Eye PERRL, Bilateral Eye EOMI HEENT: PERRL/EOMI, Normal ENT Inspection, Pharynx Normal Neck: Full Range of Motion, Normal Inspection, Non Tender, Supple Respiratory: Chest Non Tender, Lungs Clear, No Accessory Muscle Use, Other (Diminished breath sounds bilaterally) Cardiovascular: Regular Rate, Rhythm, No Murmur Gastrointestinal: Non Tender, Soft Neurologic/Psychiatric: Alert, Oriented x3, No Motor/Sensory Deficits, Normal Mood/Affect Focused Exam Sepsis Stage: Ruled Out Lactate Level 05/29/21 16:30: Lactic Acid Level 0.64 Lactic Acid Level Laboratory Tests Test 05/29/21 16:30 Lactic Acid Level 0.64 MMOL/L (0.50-2.00) Progress/Results/Core Measures Suspected Sepsis SIRS Temperature: Pulse: 83 Respiratory Rate: 18 Laboratory Tests 05/29/21 16:30: White Blood Count 10.9 Blood Pressure 105 /65 Mean: 78 05/29/21 16:30: Lactic Acid Level 0.64 Laboratory Tests 05/29/21 16:30: Creatinine 1.49H, INR Comment 1.1, Platelet Count 189, Total Bilirubin 1.1H Results/Orders Lab Results Laboratory Tests Test 05/29/21 15:40 05/29/21 16:30 Range/Units Urine Color YELLOW Urine Clarity SL CLOUDY Urine pH 7.5 5-9 Urine Specific [place] 1.015 L 1.016-1.022 Urine Protein TRACE H NEGATIVE Urine Glucose (UA) NEGATIVE NEGATIVE Urine Ketones NEGATIVE NEGATIVE Urine Nitrite NEGATIVE NEGATIVE Urine Bilirubin NEGATIVE NEGATIVE Urine Urobilinogen 0.2 < = 1.0 MG/DL Urine Leukocyte Esterase 1+ H NEGATIVE Urine RBC (Auto) TRACE-I H NEGATIVE Urine RBC NONE /HPF Urine WBC 5-10 H /HPF Urine Squamous Epithelial Cells NONE /HPF Urine Crystals NONE /LPF Urine Bacteria LARGE H /HPF Urine Casts NONE /LPF Urine Mucus NEGATIVE /LPF Urine Culture Indicated YES White Blood Count 10.9 4.3-11.0 10^3/uL Red Blood Count 3.22 L 4.30-5.52 10^6/uL Hemoglobin 10.4 L 13.3-17.7 g/dL Hematocrit 30 L 40-54 % Mean Corpuscular Volume 94 80-99 fL Mean Corpuscular Hemoglobin 32 25-34 pg Mean Corpuscular Hemoglobin Concent 34 32-36 g/dL Red Cell Distribution Width 13.2 10.0-14.5 % Platelet Count 189 130-400 10^3/uL Mean Platelet Volume 9.8 9.0-12.2 fL Immature Granulocyte % (Auto) 0 % Neutrophils (%) (Auto) 86 H 42-75 % Lymphocytes (%) (Auto) 7 L 12-44 % Monocytes (%) (Auto) 5 0-12 % Eosinophils (%) (Auto) 1 0-10 % Basophils (%) (Auto) 0 0-10 % Neutrophils # (Auto) 9.4 H 1.8-7.8 X 10^3 Lymphocytes # (Auto) 0.8 L 1.0-4.0 X 10^3 Monocytes # (Auto) 0.6 0.0-1.0 X 10^3 Eosinophils # (Auto) 0.1 0.0-0.3 10^3/uL Basophils # (Auto) 0.0 0.0-0.1 10^3/uL Immature Granulocyte # (Auto) 0.0 0.0-0.1 10^3/uL Prothrombin Time 14.3 12.2-14.7 SEC INR Comment 1.1 0.8-1.4 Activated Partial Thromboplast Time 29 24-35 SEC Sodium Level 139 135-145 MMOL/L Potassium Level 4.5 3.6-5.0 MMOL/L Chloride Level 103 98-107 MMOL/L Carbon Dioxide Level 23 21-32 MMOL/L Anion Gap 13 5-14 MMOL/L Blood Urea Nitrogen 24 H 7-18 MG/DL Creatinine 1.49 H 0.60-1.30 MG/DL Estimat Glomerular Filtration Rate 46 BUN/Creatinine Ratio 16 Glucose Level 101 70-105 MG/DL Lactic Acid Level 0.64 0.50-2.00 MMOL/L Calcium Level 9.3 8.5-10.1 MG/DL Corrected Calcium 9.7 8.5-10.1 MG/DL Total Bilirubin 1.1 H 0.1-1.0 MG/DL Aspartate Amino Transf (AST/SGOT) 12 5-34 U/L Alanine Aminotransferase (ALT/SGPT) 10 0-55 U/L Alkaline Phosphatase 88 40-136 U/L Pro-B-Type Natriuretic Peptide 1025.0 H <75.0 PG/ML Total Protein 6.9 6.4-8.2 GM/DL Albumin 3.5 3.2-4.5 GM/DL My Orders Orders - ARPAN HOFFMAN DO Ua Culture If Indicated (05/29/21 15:51) Urine Culture (05/29/21 15:40) Cbc With Automated Diff (05/29/21 16:28) Comprehensive Metabolic Panel (05/29/21 16:28) Blood Culture (05/29/21 16:28) Sputum Culture (05/29/21 16:28) Urinalysis (05/29/21 16:28) Protime With Inr (05/29/21 16:28) Partial Thromboplastin Time (05/29/21 16:28) Chest 1 View Ap/Pa Only (05/29/21 16:28) Ed Iv/Invasive Line Start (05/29/21 16:28) Ed Iv/Invasive Line Start (05/29/21 16:28) Vital Signs Adult Sepsis Patie Q15M (05/29/21 16:28) O2 (05/29/21 16:28) Lactic Acid Analyzer (05/29/21 16:28) Probnp Fs (05/29/21 16:29) Ns Iv 1000 Ml (Sodium Chloride 0.9%) (05/29/21 16:30) Manual Differential (05/29/21 16:30) Ibuprofen Tablet (Motrin Tablet) (05/29/21 17:15) Medications Given in ED Current Medications Medications Dose Ordered Sig/Mariella Route Start Time Stop Time Status Last Admin Dose Admin Ibuprofen 400 mg ONCE ONCE PO 05/29/21 17:15 05/29/21 17:16 DC 05/29/21 17:10 400 MG Vital Signs/I&O 05/29/21 15:27 Temp 37.3 Pulse 83 Resp 18 B/P (MAP) 105/65 (78) Pulse Ox 99 O2 Delivery Room Air Capillary Refill : Less Than 3 Seconds Blood Pressure Mean: 78 Departure Communication (Admissions) Chest x-ray: Cardiomegaly without other acute findings per radiology report EKG: Reassuring Patient with increased somnolence with history of recurrent urinary tract infections not evident on today's exam. Vital signs stable. Labs reviewed and reassuring. IV fluids given. Patient does not have clinical signs of heart failure nor does he feel short of breath. He is much more alert and conversant on reevaluation. Will discharge back to the assisted with urine culture pending. Recommendations are watchful waiting supportive care with close follow-up. Return precautions reviewed Impression Primary Impression: Generalized weakness Additional Impressions: Fatigue Chronic renal insufficiency Cardiomegaly Pyuria Disposition: 01 HOME, SELF-CARE Condition: Stable Departure-Patient Inst. Decision time for Depature: 18:25 Referrals: SUSAN MELENDREZ DO (PCP/Family) Primary Care Physician Patient Instructions: Fatigue (DC), Generalized Weakness (DC) Add. Discharge Instructions: Please follow-up with your assisted attending in the 1 to 2 days or review of urine culture and labs. Return to the ED if new or concerning symptom All discharge instructions reviewed with patient and/or family. Voiced understanding. ARPAN HOFFMAN DO May 29, 2021 16:30
--- NOTE | 2021-05-29 16:55 | Diagnostic Imaging Report ---
EXAMINATION: Chest 1 view HISTORY: Sepsis. COMPARISON: 11/03/2020. FINDINGS: The lung volumes are normal. No focal consolidation is seen. No large pleural effusion or pneumothorax is seen. The cardiomediastinal silhouette is mildly prominent. No acute osseous abnormality is seen. IMPRESSION: 1. Mild cardiomegaly. No evidence of overt pulmonary edema. Dictated by: Dictated on workstation # [id number]
[2021-05-29 16:59] LABS: HEMATOCRIT 30 % (40-54); HEMOGLOBIN 10.4 g/dL (13.3-17.7); MEAN CORPUSCULAR HEMOGLOBIN 32 pg (25-34); MEAN CORPUSCULAR HGB CONC 34 g/dL (32-36); MEAN CORPUSCULAR VOLUME 94 fL (80-99); MEAN PLATELET VOLUME 9.8 fL (9.0-12.2); PLATELET COUNT 189 10^3/uL (130-400); WHITE BLOOD COUNT 10.9 10^3/uL (4.3-11.0)
[2021-05-29 17:00] LABS: BASOPHILS % (AUTO) 0 % (0-10); EOSINOPHILS # (AUTO) 0.1 10^3/uL (0.0-0.3); EOSINOPHILS % (AUTO) 1 % (0-10); LYMPHOCYTES # (AUTO) 0.8 X 10^3 (1.0-4.0); LYMPHOCYTES % (AUTO) 7 % (12-44); MONOCYTES # (AUTO) 0.6 X 10^3 (0.0-1.0); MONOCYTES % (AUTO) 5 % (0-12); NEUTROPHILS # (AUTO) 9.4 X 10^3 (1.8-7.8); NEUTROPHILS % (AUTO) 86 % (42-75)
[2021-05-29] MEDS ORDERED: IBUPROFEN TABLET 200 MG TAB PO ONE (17:15)
[2021-05-29 17:17] LABS: INR 1.1 (0.8-1.4); PROTHROMBIN TIME PATIENT 14.3 SEC (12.2-14.7)
[2021-05-29 17:43] LABS: CREATININE SERUM 1.49 MG/DL (0.60-1.30); POTASSIUM 4.5 MMOL/L (3.6-5.0)
[2021-05-29 17:44] LABS: ALBUMIN 3.5 GM/DL (3.2-4.5); BILIRUBIN,TOTAL 1.1 MG/DL (0.1-1.0); CALCIUM 9.3 MG/DL (8.5-10.1); TOTAL PROTEIN 6.9 GM/DL (6.4-8.2)
[2021-05-29 18:27] LABS: BAND NEUTROPHILS 4 %; BASOPHILS % (MANUAL) 0 %; EOSINOPHILS % (MANUAL) 1 %; LYMPHOCYTES % (MANUAL) 9 %; MONOCYTES % (MANUAL) 4 %; NEUTROPHILS % (MANUAL) 82 %
[2021-05-29 18:28] VITALS: BP 122/66
== END 2021-05-29 18:42 | disposition home or self-care (01) ==
LOC: EDUNIT# 15:36 → ER FS 15:37
DX: R53.1 Weakness (principal); R53.83 Other fatigue; I12.9 Hypertensive chronic kidney disease with stage 1 through stage 4 chronic kidney disease, or unspecified chronic kidney disease; E11.22 Type 2 diabetes mellitus with diabetic chronic kidney disease; N18.9 Chronic kidney disease, unspecified; I51.7 Cardiomegaly; R82.81 Pyuria; Z72.0 Tobacco use
CPT/HCPCS: 36415; 51702; 71045; 80053; 81000; 83605; 83880; 85007; 85027; 85610; 85730; 87040; 87088

== ENCOUNTER 2022-02-07 22:13 | Emergency (ER) | payer MEDICARE ==
[~2022-02-07 22:13] MED LIST changes: -LISI1TAB29 PO; +LISI1TAB44 PO
--- NOTE | 2022-02-07 23:13 | ED Fall/Injury ---
General Chief Complaint: Trauma-Non Activation Stated Complaint: FALL Nursing Triage Note: Pt brought in by ems from [facility] after a fall. Pt states he was trying to go to the bathroom and slipped and fell, hitting his head. Pt presents with a laceration to his forehead. Pt is alert and oriented on arrival Source: patient, EMS, [facility] records Exam Limitations: physical impairment History of Present Illness Date Seen by Provider: Feb 07, 2022 Time Seen by Provider: 22:15 Initial Comments 76-year-old male patient [facility] with history of hypertension, diabetes mellitus, coronary artery disease, muscle weakness, dysphagia, anxiety disorder, dementia, major depressive disorder, difficulty in walking and muscle weakness, history of frequent falls brought in by EMS because of a fall at [facility]. Patient stated he was trying to go to the bathroom and slipped and had a fall with hitting his head with laceration of forehead. Patient also complaining of right shoulder pain. Patient is alert and oriented x2. Last tetanus immunization is unknown. Allergies and Home Medications Allergies Coded Allergies: Penicillins (Verified Allergy, Unknown, 07/18/20) Sulfa (Sulfonamide Antibiotics) (Verified Allergy, Unknown, 07/18/20) Patient Home Medication List Home Medication List Reviewed: Yes Acetaminophen (Tylenol Extra Strength) 500 Mg Tablet, 500 MG PO Q8H PRN for PAIN-MILD (1-4), (Reported) Entered as Reported by: KENYA BELLA on 04/20/21917 Amlodipine Besylate (Amlodipine Besylate) 10 Mg Tablet, 10 MG PO HS, (Reported) Entered as Reported by: KENYA BELLA on 04/20/21914 Citalopram Hydrobromide (Citalopram HBr) 20 Mg Tablet, 20 MG PO HS, (Reported) Entered as Reported by: KENYA BELLA on 04/20/21914 Potassium Chloride (K-Tab ER) 10 Meq Tablet.er, 10 MEQ PO DAILY, (Reported) Entered as Reported by: KENYA BELLA on 04/20/21917 [Prevagen] , 1 EA PO BID, (Reported) Entered as Reported by: KENYA BELLA on 04/20/21922 Review of Systems Review of Systems Constitutional: see HPI Eyes: No Symptoms Reported Ears, Nose, Mouth, Throat: no symptoms reported Respiratory: no symptoms reported Cardiovascular: no symptoms reported Gastrointestinal: no symptoms reported Genitourinary: no symptoms reported Musculoskeletal: see HPI Skin: see HPI Psychiatric/Neurological: See HPI All Other Systems Reviewed Negative Unless Noted: Yes Past Upuukmo-Kwnmza-Fqqgij Hx Patient Social History Tobacco Use?: No Use of E-Cig and/or Vaping dev: No Substance use?: No Alcohol Use?: No Pt feels they are or have been: No Immunizations Up To Date First/Initial COVID19 Vaccinat: DECEMBER 2020 Second COVID19 Vaccination Serafin: DECEMBER 2020 Seasonal Allergies Seasonal Allergies: No Past Medical History Surgeries: No Respiratory: No Cardiac: Yes Hypertension Neurological: No Genitourinary: Yes (Hernia in the scrotum) Renal Failure Gastrointestinal: No Musculoskeletal: No Endocrine: Yes Diabetes, Insulin dep HEENT: No Cancer: No Psychosocial: No Integumentary: Yes (diabetic ulcers) Blood Disorders: No Adverse Reaction/Blood Tranf: No Family Medical History Heart Disease, Other Conditions/Hx Physical Exam Vital Signs Vital Signs - First Documented 02/07/22 22:13 Temp 36.4 Pulse 80 Resp 18 B/P (MAP) 138/73 (94) Pulse Ox 98 O2 Delivery Room Air Capillary Refill : Less Than 3 Seconds Height, Weight, BMI Height: 5'2.00" Weight: 150lbs. oz. 68.078770bh; 23.00 BMI Method:Stated General Appearance: mild distress HEENT: PERRL/EOMI, pharynx normal Cardiovascular: regular rate, rhythm, no edema, no gallop Respiratory: chest non-tender, lungs clear, normal breath sounds Gastrointestinal: non tender, other (Bilateral inguinal hernia very large in left side) Extremities: non-tender, no pedal edema, pelvis stable, other (Right shoulder with painful range of motion without deformity) Neurologic/Psychiatric: alert, other (Oriented times) Skin: warm/dry, other (Bilateral lower extremity chronic color change, flap laceration of forehead 8 cm and and laceration of 2 cm of forehead) Procedures/Interventions Wound Location: Face Wound Length (cm): 8 Wound's Depth, Shape: into muscle, flap, contused tissue Wound Explored: no foreign body removed Anesthesia: 1% Lidocaine Volume Anesthetic (ccs): 10 Wound Debrided: None Suture: Prolene Suture Size: 5-0 Number of Sutures: 6 Sterile Dressing Applied?: Yes Progress/Results/Core Measures Results/Orders My Orders Orders - IMELDA ULLOA MD Ct Head/Neck Wo (02/07/22 22:25) Shoulder 3 View Right (02/07/22 22:47) Dipht,Pertuss(Acell),Tet Adult (Boostrix (02/07/22 23:15) Medications Given in ED Current Medications Medications Dose Ordered Sig/Mariella Route Start Time Stop Time Status Last Admin Dose Admin Diphtheria/ Tetanus/Acell Pertussis 0.5 ml ONCE ONCE IM 02/07/22 23:15 02/07/22 23:17 DC 02/07/22 23:13 0.5 ML Vital Signs/I&O 02/07/22 02/08/22 22:13 00:24 Temp 36.4 Pulse 80 75 Resp 18 18 B/P (MAP) 138/73 (94) 106/55 Pulse Ox 98 98 O2 Delivery Room Air Room Air Blood Pressure Mean: 94 Progress Progress Note : Progress Note Evaluation of patient and also 76-year-old male patient [facility] brought in because of a fall and laceration of face. Patient complaining of right shoulder pain also. CT head and right shoulder x-ray was unremarkable. Laceration was repaired. Advised to continue home medication and prevention of fall instruction was given. Suture removal in 7 days recommended. Diagnostic Imaging Diagonstic Imaging: Xray (Right shoulder) Comments Right shoulder x-ray interpreted by me and did not show acute finding. CT head interpreted by radiologist and did not show acute finding. Departure Impression Primary Impression: Fall [facility]iary Qualified Codes: W19.XXXA - Unspecified fall, initial encounter; Y92.129 - Unspecified place in penitentiary as the place of occurrence of the external cause Additional Impressions: Facial laceration Qualified Codes: S01.81XD - Laceration without foreign body of other part of head, subsequent encounter Right shoulder strain Qualified Codes: S46.911S - Strain of unspecified muscle, fascia and tendon at shoulder and upper arm level, right arm, sequela Inguinal hernia Qualified Codes: K40.20 - Bilateral inguinal hernia, without obstruction or gangrene, not specified as recurrent Disposition: 03 XFER SNF Condition: Improved Departure-Patient Inst. Referrals: SUSAN MELENDREZ DO (PCP/Family) Primary Care Physician Patient Instructions: Laceration Repair With Stitches ED, Preventing Falls ED, Muscle Strain (DC) Add. Discharge Instructions: Suture removal in 7 days Follow-up with your primary care physician in 5 days May apply ice on right shoulder All discharge instructions reviewed with patient and/or family. Voiced unde rstanding. Procedure Note Preoperative Date of Service: Feb 07, 2022 Vital Signs Date Time Temp Pulse Resp B/P (MAP) Pulse Ox O2 Delivery O2 Flow Rate FiO2 02/08/22 00:24 75 18 106/55 98 Room Air 02/07/22 22:13 36.4 Indication 2 cm forehead laceration was cleaned and irrigated with normal saline and 1% lidocaine 2 mL was used for anesthesia and laceration was repaired with 2 sutures of 5-0 Prolene and nonadhesive sterile dressing was applied. Patient tolerated the procedure well. No wound debridement or foreign body removal was done Risk/Time Out Risk and benefits explained to patient or legal guardian, verbal and written consent given. Time out performed, verified correct patient, correct procedure, correct site, and consent documented. IMELDA ULLOA MD Feb 07, 2022 23:12
[2022-02-07] MEDS ORDERED: TETANUS,DIPTH,PERTUSS P/F (BOOSTRIX) 0.5 ML VIAL IM ONE (23:15)
[2022-02-08 00:24] VITALS: BP 106/55
--- NOTE | 2022-02-08 08:07 | Diagnostic Imaging Report ---
PROCEDURE: CT head and CT cervical spine without contrast. TECHNIQUE: Multiple contiguous axial images were obtained through the brain and cervical spine without the use of intravenous contrast. Sagittal and coronal reformations through the cervical spine were then performed. All CT scans use one or more of the following dose optimizing techniques: automated exposure control, MA and/or KvP adjustment based on a patient size and exam type, or iterative reconstruction. INDICATION: Fall. Head and neck pain. COMPARISON: 04/10/2021. FINDINGS: CT head: No large acute territorial ischemia, mass, or hemorrhage. No midline shift or mass effect. Decreased attenuation is seen in the periventricular and subcortical white matter. The ventricles and cortical sulci are prominent. The basilar cisterns are patent and unremarkable. The calvarium is intact. The visualized paranasal sinuses are clear. CT cervical spine: No acute fracture or dislocation is seen in the cervical spine. No focal osseous lesions. Congenital nonunion of the posterior arch of C1 is noted. There is slight left convexity curvature of the cervical spine. Vertebral body heights are well-maintained. The craniocervical junction is well-maintained. Moderate degenerative changes are seen in the cervical spine with disc osteophyte complexes and uncovertebral arthropathy. The included lung apices are clear. IMPRESSION: 1. No hemorrhage or focal intra-axial mass. No CT evidence of large acute territorial ischemia. 2. No acute fracture or dislocation in the cervical spine. Agree with overnight report. Dictated by: Dictated on workstation # [id number]
--- NOTE | 2022-02-08 08:15 | Diagnostic Imaging Report ---
Indication: Fall with right shoulder pain AP, oblique, and transscapular views the right shoulder are obtained. No fracture or acute bony abnormality is seen. There is degenerative change in the glenohumeral joint and AC joint. IMPRESSION: Degenerative findings of right shoulder with no acute abnormality. Dictated by: Dictated on workstation # [id number]
== END 2022-02-08 00:39 ==
LOC: EDUNIT# 22:13 → ER FS 22:14
DX: S01.81XA Laceration without foreign body of other part of head, initial encounter (principal); S46.911A Strain of unspecified muscle, fascia and tendon at shoulder and upper arm level, right arm, initial encounter; K40.20 Bilateral inguinal hernia, without obstruction or gangrene, not specified as recurrent; Z23 Encounter for immunization; W01.0XXA Fall on same level from slipping, tripping and stumbling without subsequent striking against object, initial encounter; W22.8XXA Striking against or struck by other objects, initial encounter; Y92.129 Unspecified place in nursing home as the place of occurrence of the external cause
CPT/HCPCS: 12013; 70450; 70490; 73030; 90715

== ENCOUNTER 2022-02-15 00:30 | Inpatient (IN) | payer MEDICARE ==
[2022-02-15] VITALS (12 sets, daily range): BP systolic 104–150; BP diastolic 68–105
[~2022-02-15] VITALS: Ht 170 cm; Wt 64.9 kg
[2022-02-15] MEDS ORDERED: fentaNYL INJ 100 MCG/2 ML AMP ONE ×2 (00:42→13:24)
[2022-02-15 00:55] LABS: BASOPHILS % (AUTO) 0 % (0-10); EOSINOPHILS # (AUTO) 0.1 10^3/uL (0.0-0.3); EOSINOPHILS % (AUTO) 2 % (0-10); HEMATOCRIT 36 % (40-54); HEMOGLOBIN 12.9 g/dL (13.3-17.7); LYMPHOCYTES # (AUTO) 1.4 10^3/uL (1.0-4.0); LYMPHOCYTES % (AUTO) 18 % (12-44); MEAN CORPUSCULAR HEMOGLOBIN 31 pg (25-34); MEAN CORPUSCULAR HGB CONC 36 g/dL (32-36); MEAN CORPUSCULAR VOLUME 86 fL (80-99); MEAN PLATELET VOLUME 9.1 fL (9.0-12.2); MONOCYTES # (AUTO) 0.5 10^3/uL (0.0-1.0); MONOCYTES % (AUTO) 6 % (0-12); NEUTROPHILS % (AUTO) 74 % (42-75); PLATELET COUNT 277 10^3/uL (130-400); WHITE BLOOD COUNT 8.1 10^3/uL (4.3-11.0)
[2022-02-15] MEDS ORDERED: morphine INJ 10 MG/ML 1ML (SYR OR VIAL) IVP STA ×2 (01:02→03:12)
[2022-02-15] MEDS ORDERED: morphine INJ 10 MG/ML 1ML (SYR OR VIAL) ONE (01:04)
[2022-02-15 01:21] LABS: ALBUMIN 3.5 GM/DL (3.2-4.5); POTASSIUM 4.3 MMOL/L (3.6-5.0)
[2022-02-15 01:22] LABS: CALCIUM 9.3 MG/DL (8.5-10.1)
[2022-02-15 01:24] LABS: TOTAL PROTEIN 7.3 GM/DL (6.4-8.2)
[2022-02-15 01:25] LABS: BILIRUBIN,TOTAL 1.3 MG/DL (0.1-1.0)
[2022-02-15 01:27] LABS: CREATININE SERUM 1.37 MG/DL (0.60-1.30)
[2022-02-15 03:13] LABS: BILIRUBIN,URINE NEGATIVE (NEGATIVE); CLARITY,URINE CLEAR; COLOR,URINE YELLOW; GLUCOSE, URINE (UA) NEGATIVE (NEGATIVE); KETONES,URINE NEGATIVE (NEGATIVE); LEUKOCYTE ESTERASE ,URINE NEGATIVE (NEGATIVE); NITRITE,URINE NEGATIVE (NEGATIVE); PROTEIN,URINE NEGATIVE (NEGATIVE)
[2022-02-15 03:27] LABS: BACTERIA,URINE TRACE /HPF; RBC,URINE 0-2 /HPF; WBC,URINE 0-2 /HPF
--- NOTE | 2022-02-15 03:54 | ED Fall/Injury ---
General Chief Complaint: Trauma-Non Activation Stated Complaint: HIP PAIN Nursing Triage Note: BROUGHT IN BY [facility] S/P FALL. C/O LEFT HIP/ARM FACE PAIN. Source: patient, EMS, penitentiary records, old records Exam Limitations: clinical condition History of Present Illness Date Seen by Provider: Feb 15, 2022 Time Seen by Provider: 00:31 Initial Comments This 77-year-old gentleman arrives to the emergency room via [facility] from [facility] in [facility]. He experienced a fall from same level heard by staff. They found him on the floor with left hip pain and shortening of the left leg with external rotation. He also had abrasion to the left brow. He complained of neck pain. C-collar was applied upon arrival. Patient is hysterical on arrival and is crying out in pain when minimally touched. Patient also had a fall last week and has sutures still in place on his forehead from the fall. He received a tetanus immunization during the ER visit. Patient is noted to have extreme chronic bilateral inguinal hernias. In addition to left hip pain, patient complains of left arm and elbow pain. Location Injury Occurred: [facility] Allergies and Home Medications Allergies Coded Allergies: Penicillins (Verified Allergy, Unknown, 07/18/20) Sulfa (Sulfonamide Antibiotics) (Verified Allergy, Unknown, 07/18/20) Patient Home Medication List Home Medication List Reviewed: Yes Acetaminophen (Tylenol Extra Strength) 500 Mg Tablet, 500 MG PO Q8H PRN for PAIN-MILD (1-4), (Reported) Entered as Reported by: KENYA BELLA on 04/20/21917 Amlodipine Besylate (Amlodipine Besylate) 10 Mg Tablet, 10 MG PO HS, (Reported) Entered as Reported by: KENYA BELLA on 04/20/21914 Citalopram Hydrobromide (Citalopram HBr) 20 Mg Tablet, 20 MG PO HS, (Reported) Entered as Reported by: KENYA BELLA on 04/20/21914 Potassium Chloride (K-Tab ER) 10 Meq Tablet.er, 10 MEQ PO DAILY, (Reported) Entered as Reported by: KENYA BELLA on 04/20/21917 [Prevagen] , 1 EA PO BID, (Reported) Entered as Reported by: KENYA BELLA on 04/20/21922 Review of Systems Review of Systems Constitutional: no symptoms reported Eyes: No Symptoms Reported Ears, Nose, Mouth, Throat: no symptoms reported Respiratory: no symptoms reported Cardiovascular: no symptoms reported Gastrointestinal: no symptoms reported Genitourinary: no symptoms reported Musculoskeletal: see HPI Skin: see HPI Psychiatric/Neurological: See HPI Past Fxebzqr-Kqhbzp-Lzjmnn Hx Patient Social History Tobacco Use?: No Substance use?: No Alcohol Use?: No Pt feels they are or have been: No Immunizations Up To Date First/Initial COVID19 Vaccinat: DECEMBER 2020 Second COVID19 Vaccination Serafin: DECEMBER 2020 Third COVID19 Vaccination Date: DECEMBER 2020 Seasonal Allergies Seasonal Allergies: No Past Medical History Surgery/Hospitalization HX: HTN, FALLS, IDDM, RENAL FAILURE, DEMENTIA. Surgeries: No Respiratory: No Cardiac: Yes Hypertension Neurological: Yes Dementia Genitourinary: Yes (Hernia in the scrotum) Renal Failure Gastrointestinal: Yes (Bilateral inguinal hernias) Musculoskeletal: No Endocrine: Yes Diabetes, Non-Insulin dep HEENT: No Cancer: No Psychosocial: No Integumentary: Yes (diabetic ulcers) Blood Disorders: No Adverse Reaction/Blood Tranf: No Family Medical History Heart Disease, Other Conditions/Hx Physical Exam Vital Signs Vital Signs - First Documented 02/15/22 00:31 Temp 36.8 Pulse 80 Resp 22 B/P (MAP) 142/88 (106) Pulse Ox 100 O2 Delivery Room Air Capillary Refill : Less Than 3 Seconds Height, Weight, BMI Height: 5'2.00" Weight: 150lbs. oz. 68.615863pk; 22.00 BMI Method:Stated General Appearance: WD/WN, moderate distress, thin HEENT: PERRL/EOMI, normal ENT inspection, other (Abrasion above the left lateral brow oozing blood) Neck: other (Hyperflexed neck with tenderness.) Cardiovascular: regular rate, rhythm, no edema, no murmur Respiratory: lungs clear, normal breath sounds, no respiratory distress Gastrointestinal: normal bowel sounds, non tender, soft Extremities: other (Bilateral hip pain. Left leg is shortened and externally rotated. Tenderness throughout the left arm from the wrist through the distal upper arm. Skin tear on the left elbow region) Neurologic/Psychiatric: no motor/sensory deficits, alert Skin: normal color, warm/dry Kit Coma Score Best Eye Response: (4) Open Spontaneously Best Verbal Response: (5) Oriented Best Motor Response: (6) Obeys Commands [place] Total: 14 Procedures/Interventions Suture Size: 5-0 Progress/Results/Core Measures Results/Orders Lab Results Laboratory Tests Test 02/15/22 00:45 02/15/22 03:00 Range/Units White Blood Count 8.1 4.3-11.0 10^3/uL Red Blood Count 4.20 L 4.30-5.52 10^6/uL Hemoglobin 12.9 L 13.3-17.7 g/dL Hematocrit 36 L 40-54 % Mean Corpuscular Volume 86 80-99 fL Mean Corpuscular Hemoglobin 31 25-34 pg Mean Corpuscular Hemoglobin Concent 36 32-36 g/dL Red Cell Distribution Width 13.4 10.0-14.5 % Platelet Count 277 130-400 10^3/uL Mean Platelet Volume 9.1 9.0-12.2 fL Immature Granulocyte % (Auto) 1 % Neutrophils (%) (Auto) 74 42-75 % Lymphocytes (%) (Auto) 18 12-44 % Monocytes (%) (Auto) 6 0-12 % Eosinophils (%) (Auto) 2 0-10 % Basophils (%) (Auto) 0 0-10 % Neutrophils # (Auto) 6.0 1.8-7.8 10^3/uL Lymphocytes # (Auto) 1.4 1.0-4.0 10^3/uL Monocytes # (Auto) 0.5 0.0-1.0 10^3/uL Eosinophils # (Auto) 0.1 0.0-0.3 10^3/uL Basophils # (Auto) 0.0 0.0-0.1 10^3/uL Immature Granulocyte # (Auto) 0.0 0.0-0.1 10^3/uL Sodium Level 136 135-145 MMOL/L Potassium Level 4.3 3.6-5.0 MMOL/L Chloride Level 106 98-107 MMOL/L Carbon Dioxide Level 18 L 21-32 MMOL/L Anion Gap 12 5-14 MMOL/L Blood Urea Nitrogen 16 7-18 MG/DL Creatinine 1.37 H 0.60-1.30 MG/DL Estimat Glomerular Filtration Rate 53 BUN/Creatinine Ratio 12 Glucose Level 206 H 70-105 MG/DL Calcium Level 9.3 8.5-10.1 MG/DL Corrected Calcium 9.7 8.5-10.1 MG/DL Total Bilirubin 1.3 H 0.1-1.0 MG/DL Aspartate Amino Transf (AST/SGOT) 61 H 5-34 U/L Alanine Aminotransferase (ALT/SGPT) 46 0-55 U/L Alkaline Phosphatase 110 40-136 U/L Total Protein 7.3 6.4-8.2 GM/DL Albumin 3.5 3.2-4.5 GM/DL Urine Color YELLOW Urine Clarity CLEAR Urine pH 7.0 5-9 Urine Specific Massey 1.010 L 1.016-1.022 Urine Protein NEGATIVE NEGATIVE Urine Glucose (UA) NEGATIVE NEGATIVE Urine Ketones NEGATIVE NEGATIVE Urine Nitrite NEGATIVE NEGATIVE Urine Bilirubin NEGATIVE NEGATIVE Urine Urobilinogen >=8.0 < = 1.0 MG/DL Urine Leukocyte Esterase NEGATIVE NEGATIVE Urine RBC (Auto) NEGATIVE NEGATIVE Urine RBC 0-2 /HPF Urine WBC 0-2 /HPF Urine Crystals NONE /LPF Urine Bacteria TRACE /HPF Urine Casts NONE /LPF Urine Mucus NEGATIVE /LPF Urine Culture Indicated NO My Orders Orders - DUANE GUTIERREZ MD Fentanyl Inj (Sublimaze Injection) (02/15/22 00:42) Ct Head/Face/Cervical Wo (02/15/22 00:43) Pelvis With Left Hip 2-3 Views (02/15/22 00:43) Forearm, Left, 2 Views (02/15/22 00:43) Humerus, Left, 2 Views (02/15/22 00:43) Cbc With Automated Diff (02/15/22 00:43) Comprehensive Metabolic Panel (02/15/22 00:43) Ua Culture If Indicated (02/15/22 00:43) Alvarado Cath (02/15/22 00:43) Ct Chest/Abdomen/Pelvis Wo (02/15/22 00:55) Morphine Injection (Morphine Injection (02/15/22 01:02) Morphine Injection (Morphine Injection (02/15/22 01:04) Morphine Injection (Morphine Injection (02/15/22 03:12) Medications Given in ED Current Medications Medications Dose Ordered Sig/Mariella Route Start Time Stop Time Status Last Admin Dose Admin Fentanyl Citrate 100 mcg STK-MED ONCE .ROUTE 02/15/22 00:42 02/15/22 00:44 DC 02/15/22 00:42 50 MCG Vital Signs/I&O 02/15/22 00:31 Temp 36.8 Pulse 80 Resp 22 B/P (MAP) 142/88 (106) Pulse Ox 100 O2 Delivery Room Air Blood Pressure Mean: 106 Progress Progress Note : Progress Note Patient's pain was treated with multiple doses of opioids. Because he is hysterical on arrival, is difficult to assess where all his injuries may be. CT from the head through the pelvis was obtained. X-rays of the chest and pelvis and left hip were also obtained. He was found to have left hip fracture. No other serious acute injuries were identified on imaging. Diagnostic Imaging Diagonstic Imaging: CT Plain Films/CT/US/NM/MRI: chest, abdomen, pelvis Comments CT chest, abdomen and pelvis viewed by pa and stat rad report reviewed. There were bilateral inguinal hernias. Fracture of the left hip was noted. No other acute injuries were identified. Diagonstic Imaging: CT Plain Films/CT/US/NM/MRI: c-spine, head Comments CT head and cervical spine viewed by pa and stat rad report reviewed. Over read later reviewed. See report below: NAME: JOAO HARDY [facility] REC#: [id number] PT STATUS: ADM IN : 1945 PHYSICIAN: DUANE GUTIERREZ MD ADMIT DATE: 02/15/22 Draft Date of Exam:02/15/22 CT HEAD/FACE/CERVICAL WO PROCEDURE: CT head, face, and cervical spine without contrast. TECHNIQUE: Multiple contiguous axial images were obtained through the head, neck, and facial bones without the use of intravenous contrast. Sagittal and coronal reformations through the cervical spine and facial bones were also performed. Auto Exposure Controls were utilized during the CT exam to meet ALARA standards for radiation dose reduction. INDICATION: Fall. Compared with head CT and neck CT 02/07/2022 Head: Cerebral cortical atrophy and periventricular white matter small vessel disease as well as atherosclerotic vascular calcifications are stable chronic findings. There is no hemorrhage and there are no acute or abnormal extra-axial fluid collections. There was no findings of focal nor generalized cerebral edema. Hemo-sinus no calvarial fracture deformity. No pneumocephalus. There has been no change. CT face: Paranasal sinuses clear. No blood. Nasal bones and bony nasal septum intact. The bony orbital and maxillary george intact. The zygomatic arch is intact. No mandibular fracture deformity. Maxilla and pterygoid plates intact. No facial fracture identified. No orbital hematoma. No proptosis. Cervical spine: Craniocervical relationship in the central skull base appeared intact. Stable trace grade 1 retrolisthesis C2 on C3 and C3 on C4 of about 2 mm unchanged. No facet joint dislocation. Vertebral statures are normal. No acute or suspicious endplate or vertebral body irregularity. The pedicle is intact. There are degenerative changes to the endplates, facets and uncovertebral joints but no fracture identified. There was no evidence for paraspinal hemorrhage. Heavy carotid atherosclerotic vascular calcifications are present. A moderate severity of canal stenosis at L3-L4 greater than L2-L3 stable. The remaining levels are stable. Mild canal stenoses. There is a moderate to severe bony right foraminal stenosis C4-C5 and C5-C6. Additional more mild and moderate stenoses at the remaining foramina noted. IMPRESSION: CT HEAD: Stable chronic senescent findings. No hemorrhage, fracture or posttraumatic sequelae. CT FACIAL BONES: No fracture or hemo-sinus. CT CERVICAL: Stable chronic degenerative findings with bony canal and foraminal stenoses and slight retrolisthesis. Unchanged from prior with no fracture or traumatic malalignment. Dictated on workstation # [id number] Dict: 02/15/22 0800 Trans: 02/15/22 0820 [id number] Interpreted by: RHONDA PAEZ Diagonstic Imaging: Xray Plain Films/CT/US/NM/MRI: forearm, chest, pelvis, hip Comments Trays of the left forearm, humerus, chest, pelvis, and left hip viewed by me. Reports not yet available. Left hip fracture was identified. No other acute injuries were noted. Departure Communication (Admissions) Time/Spoke to Admitting Phy: 03:14 Dr. Nuñez Time/Spoke to Consulting Phy: 03:05 Dr. Hernández Impression Primary Impression: Closed left hip fracture Qualified Codes: S72.002A - Fracture of unspecified part of neck of left femur, initial encounter for closed fracture Additional Impressions: Fall on same level Qualified Codes: W18.30XA - Fall on same level, unspecified, initial encounter Abrasion of scalp Qualified Codes: S00.01XA - Abrasion of scalp, initial encounter Left arm pain Disposition: ADMITTED INPATIENT Condition: Stable Admissions Decision to Admit Reason: Admit from ER (Trauma) Decision to Admit/Date: Feb 15, 2022 Time/Decision to Admit Time: 03:05 Departure-Patient Inst. Referrals: SUSAN MELENDREZ DO (PCP/Family) Primary Care Physician DUANE GUTIERREZ MD Feb 15, 2022 03:54
--- NOTE | 2022-02-15 07:03 | Progress Note ---
Standard Progress Note Progress Notes/Assess & Plan Date Seen by a Provider: Feb 15, 2022 Time Seen by a Provider: 06:54 Progress/Assessment & Plan patient seen and examined plan for left hip bipolar replacement later today MELISSA EASLEY MD Feb 15, 2022 07:03
--- NOTE | 2022-02-15 07:39 | CONSULTATION REPORT ---
DATE OF SERVICE: INPATIENT CONSULTATION REASON FOR CONSULTATION: Left femoral neck fracture. HISTORY OF PRESENT ILLNESS: The patient is a 77-year-old gentleman with history of multiple falls, who by report is not an ambulator and is a [facility] resident, but apparently fell at some point and presented from an outside facility in [facility] where he was found to have a femoral neck fracture. The patient has dementia and is a poor historian. He complains of hip pain. ALLERGIES: PENICILLIN, SULFA. MEDICATIONS: Acetaminophen, amlodipine, citalopram, potassium. ORTHOPEDIC EXAM: The left lower extremity is shortened and externally rotated. There are no skin lesions noted. He has spontaneous dorsiflexion and plantarflexion of toes with symmetric pulses. Sensation is intact to light touch. RADIOGRAPHS Revealed a displaced left femoral neck fracture. IMPRESSION: Closed displaced left femoral neck fracture. PLAN: Left hip bipolar replacement. We will plan on this later this afternoon. Job ID: [id number] DocumentID: [id number] Dictated Date: 02/15/2022 07:05:42 Service Coordinator Date: 02/15/2022 07:38:46 Dictated By: MELISSA EASLEY MD
[2022-02-15] MEDS ORDERED: CATHETER FLUSH 10 ML SYR IVP PRN (08:15)
[2022-02-15] MEDS ORDERED: morphine INJ 4 MG/ML 1 ML (VIAL/SYRINGE) IV PRN (08:15)
[2022-02-15] MEDS ORDERED: ONDANSETRON 4 MG/2 ML (SDV) Z0FRAN IV PRN (08:15)
--- NOTE | 2022-02-15 08:21 | Diagnostic Imaging Report ---
PROCEDURE: CT head, face, and cervical spine without contrast. TECHNIQUE: Multiple contiguous axial images were obtained through the head, neck, and facial bones without the use of intravenous contrast. Sagittal and coronal reformations through the cervical spine and facial bones were also performed. Auto Exposure Controls were utilized during the CT exam to meet ALARA standards for radiation dose reduction. INDICATION: Fall. Compared with head CT and neck CT 02/07/2022 Head: Cerebral cortical atrophy and periventricular white matter small vessel disease as well as atherosclerotic vascular calcifications are stable chronic findings. There is no hemorrhage and there are no acute or abnormal extra-axial fluid collections. There was no findings of focal nor generalized cerebral edema. Hemo-sinus no calvarial fracture deformity. No pneumocephalus. There has been no change. CT face: Paranasal sinuses clear. No blood. Nasal bones and bony nasal septum intact. The bony orbital and maxillary george intact. The zygomatic arch is intact. No mandibular fracture deformity. Maxilla and pterygoid plates intact. No facial fracture identified. No orbital hematoma. No proptosis. Cervical spine: Craniocervical relationship in the central skull base appeared intact. Stable trace grade 1 retrolisthesis C2 on C3 and C3 on C4 of about 2 mm unchanged. No facet joint dislocation. Vertebral statures are normal. No acute or suspicious endplate or vertebral body irregularity. The pedicle is intact. There are degenerative changes to the endplates, facets and uncovertebral joints but no fracture identified. There was no evidence for paraspinal hemorrhage. Heavy carotid atherosclerotic vascular calcifications are present. A moderate severity of canal stenosis at L3-L4 greater than L2-L3 stable. The remaining levels are stable. Mild canal stenoses. There is a moderate to severe bony right foraminal stenosis C4-C5 and C5-C6. Additional more mild and moderate stenoses at the remaining foramina noted. IMPRESSION: CT HEAD: Stable chronic senescent findings. No hemorrhage, fracture or posttraumatic sequelae. CT FACIAL BONES: No fracture or hemo-sinus. CT CERVICAL: Stable chronic degenerative findings with bony canal and foraminal stenoses and slight retrolisthesis. Unchanged from prior with no fracture or traumatic malalignment. Dictated by: Dictated on workstation # [id number]
--- NOTE | 2022-02-15 08:34 | Diagnostic Imaging Report ---
INDICATION: Fall with left humeral pain. AP and lateral views of the left humerus are obtained. No fracture or acute bony abnormality is seen. IMPRESSION: Negative left humerus. Dictated by: Dictated on workstation # [id number]
--- NOTE | 2022-02-15 08:36 | Diagnostic Imaging Report ---
INDICATION: Pain, fall COMPARISON: Imaging from the same date. TECHNIQUE: Two radiographs of the left forearm dated 02/15/2022. FINDINGS: Acute fracturing of the left femoral neck is incidentally noted with associated varus angulation. No fracture within the left form itself. No dislocation. No suspicious radiopaque foreign body. Background vascular calcifications are present. IMPRESSION: Acute fracturing of the left femoral neck with resultant varus angulation. No acute fracture involving the left forearm itself with background vascular calcifications noted. Dictated by: Dictated on workstation # [id number]
--- NOTE | 2022-02-15 08:54 | Diagnostic Imaging Report ---
INDICATION: Traumatic deformity. FINDINGS: There is varus angulation associated with presumed acute left hip femoral neck fracture without dislocation. The underlying bones appeared demineralized. Osteoporosis suspected. There is severe atherosclerotic vascular calcifications and rectal constipation. There is a very large left groin viscus hernia. IMPRESSION: 1. Varus angulation of the left femoral neck fracture without dislocation with underlying osteoporosis suspected. 2. Very large left groin hernia and rectal constipation with atherosclerotic vascular calcifications. Dictated by: Dictated on workstation # [id number]
[2022-02-15] MEDS: LACTATED RINGERS 1,000 ML IV SCH ×3 (08:55→19:31)
--- NOTE | 2022-02-15 08:56 | Diagnostic Imaging Report ---
PROCEDURE: CT chest, abdomen, and pelvis without contrast. TECHNIQUE: Multiple contiguous axial images were obtained through the chest, abdomen, and pelvis without the use of intravenous contrast. Auto Exposure Controls were utilized during the CT exam to meet ALARA standards for radiation dose reduction. INDICATION: 77-year-old male, trauma, post fall. Pain. CORRELATION STUDY: CT chest 04/10/2021, CT abdomen and pelvis 04/19/2021 FINDINGS: CT CHEST: Heart size is within normal limits. Rather prominent coronary artery as well as cardiac valvular calcification. No pericardial effusion. The thoracic aorta with calcification tortuous course. No significant mediastinal hematoma. No pathologically enlarged mediastinal lymph nodes. Small hiatal hernia. Lung combs are relatively clear. No infiltrate or contusion. No pneumothorax or effusion. No acute displaced fracture. CT ABDOMEN and PELVIS: Moderate amount of streak attenuation artifact is noted, particularly over the upper abdomen from the patient's upper extremities. The unenhanced liver, spleen, pancreas and adrenal glands demonstrate no acute findings. Cholecystectomy. Stent in the common bile duct. Dense aortoiliac calcific calcification as well as calcified desiccation the major branches. Atrophic change the right kidney with hypertrophic change at the hypertrophied left kidney. In the left upper quadrant immediately adjacent to the right hepatic lobe, there is asymmetric a increased density. There is mild thickening of the right internal oblique muscle. Gastrointestinal track without obstruction or inflammation. Colonic diverticulosis. Colon distended with gas and stool up to just under 9 cm. There is a rather sizable left inguinal hernia which contains a large amount of the gastrointestinal track including small bowel and colon. High degree obstruction not definitively demonstrated. This extends well into the scrotum. There is also presence of a right inguinal hernia which contains portions of the urinary bladder dome. Osseous structures are positive for an impacted angulated left subcapital femoral neck fracture. IMPRESSION: CT CHEST: 1. Negative for acute traumatic abnormality of the chest. CT ABDOMEN and PELVIS: 1. Soft tissue stranding right upper quadrant immediately adjacent the right hepatic lobe. There is also some thickening of the right internal oblique muscle. Could be reflective of an area of contusion. Definitive adjacent hepatic laceration not visualized. However, close clinical and perhaps short-term follow-up imaging correlation is recommended. 2. Impacted left subcapital femoral neck fracture. This finding not described at initial interpretation. However, there is subsequent additional pelvis and left hip radiographs demonstrating this finding. 3. Multiple additional incidental and chronic findings, as detailed above. Initial report was provided by Nelly. Dictated by: Dictated on workstation # [id number]
[2022-02-15] MEDS ORDERED: BUP/EPI 0.5% 1:200,000 (MARCAINE) 10ML VIAL IJ ONE (13:10)
--- NOTE | 2022-02-15 13:49 | Progress Note-Pre Operative ---
Pre-Operative Progress Note Date of Available H&P: Feb 15, 2022 Date H&P Reviewed: Feb 15, 2022 Time H&P Reviewed: 13:48 Changes from last HP none Pre-Operative Diagnosis: closed, displaced left neck of femur fracture MELISSA EASLEY MD Feb 15, 2022 13:49
--- NOTE | 2022-02-15 13:49 | Progress Note-Post Operative ---
Post-Operative Progess Note Surgeon (s)/Slide Forming Machine Tender (s) Surgeon MELISSA EASLEY MD Slide Forming Machine Tender: Hugo Washington Pre-Operative Diagnosis closed, displaced left neck of femur fracture Post-Operative Diagnosis closed, displaced left neck of femur fracture Procedure & Operative Findings Date of Procedure 02/15/22 Procedure Performed/Findings left hip bipolar replacement Anesthesia Type GETA Estimated Blood Loss Estimated blood loss (mL): 100ml Specimens/Packing Specimens Removed none Packing: none MELISSA EASLEY MD Feb 15, 2022 13:49
[2022-02-15] MEDS ORDERED: CLINDAMYCIN 900 MG/50 ML IVPB 50 ML IV ONE (14:00)
[2022-02-15] MEDS ORDERED: diphenhydrAMINE 50 MG/ML INJ (BENADRYL) IVP PRN (14:15)
[2022-02-15] MEDS ORDERED: HYDROcodone/APAP 7.5 MG/325 MG (LORTAB, LORCET PLUS) TABLET PO PRN (14:15)
[2022-02-15] MEDS ORDERED: morphine INJ 4 MG/ML 1 ML (VIAL/SYRINGE) IVP PRN (14:15)
[2022-02-15] MEDS ORDERED: ONDANSETRON 4 MG/2 ML (SDV) Z0FRAN IVP PRN ×2 (14:15→15:45)
[2022-02-15] MEDS ORDERED: TEMAZEPAM 15 MG (RESTORIL) CAP PO PRN (14:15)
[2022-02-15] MEDS ORDERED: MORP100S7 PO (14:24)
[2022-02-15] MEDS ORDERED: ACET-2267 PO (14:24)
[2022-02-15] MEDS ORDERED: POLY17PO6 PO (14:24)
[2022-02-15] MEDS ORDERED: NFCHLORHGL PO (14:24)
[2022-02-15] MEDS ORDERED: CITA40TA13 PO (14:24)
[2022-02-15] MEDS ORDERED: proPOfol 200 MG/20 ML (DIPRIVAN) VIAL IV ONE (14:25)
[2022-02-15] MEDS ORDERED: ROCURONIUM 50 MG/5 ML (ZEMURON) VIAL IV ONE (14:25)
[2022-02-15] MEDS ORDERED: LIDOCAINE PF 2% 5 ML (XYLOCAINE) VIAL ONE (14:25)
[2022-02-15] MEDS ORDERED: ONDANSETRON 4 MG/2 ML (SDV) Z0FRAN ONE ×2 (14:25→14:31)
[2022-02-15] MEDS ORDERED: BUPIVACAINE 0.5% 30 ML (SENSORCAINE) VIAL INJ ONE (14:30)
[2022-02-15] MEDS ORDERED: LACTATED RINGERS 1,000 ML IV PRN (14:30)
[2022-02-15] MEDS ORDERED: SEVOFLURANE (ULTANE) 15 ML INHAL SOLN ONE ×2 (14:31→15:36)
[2022-02-15] MEDS ORDERED: GLYCOPYRROLATE 0.2 MG/ML (ROBINUL) 2 ML VIAL ONE (14:45)
[2022-02-15] MEDS ORDERED: NEOSTIGMINE (BLOXIVERZ ) 1 MG/1ML 10 ML VIAL ONE (14:45)
--- NOTE | 2022-02-15 15:04 | Physical Therapy Progress Note ---
Therapy Progress Note Order received for PT evaluation. Patient is still not in their room at 1500, will start evaluation in the morning. ERIK VILLARREAL PT Feb 15, 2022 15:04
[2022-02-15] MEDS ORDERED: ROPIVACAINE 5MG/ML 30ML VIAL ONE (15:37)
[2022-02-15] MEDS ORDERED: morphine INJ 10 MG/ML 1ML (SYR OR VIAL) IVP ONE (15:45)
--- NOTE | 2022-02-15 15:45 | Diagnostic Imaging Report ---
INDICATION: Left hip replacement. TIME OF EXAM: 03:35 p.m. FINDINGS: Single-view left hip demonstrates left hip prosthesis. Alignment appears normal. Prosthetic elements appear to be in good position. No fracture or loosening is seen. IMPRESSION: Satisfactory postop left hip. Dictated by: Dictated on workstation # [id number]
--- NOTE | 2022-02-15 18:28 | History & Physical-Hospitalist ---
History of Present Illness HPI/Chief Complaint Kishan Ellsworth is a 77-year-old male with past medical history of hypertension, diabetes, dementia, recurrent falls, who presented after having a fall at his [facility] The staff heard him fall. He was brought to the ER by EMS. He is a poor historian. He is sleeping upon my arrival. He denies pain. He denies shortness of breath. He denies nausea. He is not hungry or thirsty. He has no complaints at this time. Source: patient Exam Limitations: no limitations Date Seen 02/15/22 Time Seen by a Provider: 17:15 Attending Physician Carlos Lester DO PCP Admitting Physician: Lexus Nuñez DO Attending Physician: Dina Velasco MD Referring Physician Date of Admission Feb 15, 2022 at 03:17 Home Medications & Allergies Home Medications Reviewed patient Home Medication Reconciliation performed by pharmacy medication reconciliations internetworking technician and/or nursing. Patients Allergies have been reviewed. Allergies Allergies Coded Allergies Penicillins (Verified Allergy, Unknown, 07/18/20) Sulfa (Sulfonamide Antibiotics) (Verified Allergy, Unknown, 07/18/20) Past Coidbtk-Oltzzr-Zhwjii Hx Patient Social History Tobacco Use?: No Substance use?: No Alcohol Use?: No Pt feels they are or have been: No Immunizations Up To Date First/Initial COVID19 Vaccinat: DECEMBER 2020 Second COVID19 Vaccination Serafin: DECEMBER 2020 Tetanus Booster (TDap): Unknown Hepatitis A: No Hepatitis B: No Seasonal Allergies Seasonal Allergies: No Current Status Advance Directives: Yes Communicates: Verbally Primary Language: [place]ese Preferred Spoken Language: [place]ese Is interpretation needed?: No Implanted or Applied Medical D: None Past Medical History Hypertension Dementia Renal Failure Diabetes, Non-Insulin dep Blood Disorders: No Adverse Reaction/Blood Tranf: No Family Medical History Heart Disease, Other Conditions/Hx Review of Systems Constitutional: see HPI Physical Exam Physical Exam Vital Signs Vital Signs - First Documented 02/15/22 00:31 Temp 36.8 Pulse 80 Resp 22 B/P (MAP) 142/88 (106) Pulse Ox 100 O2 Delivery Room Air Capillary Refill : Less Than 3 SecondsLess Than 3 Seconds Height, Weight, BMI Height: 5'2.00" Weight: 150lbs. oz. 68.811999ud; 22.45 BMI Method:Stated General Appearance: No Apparent Distress, Chronically ill, Thin HEENT: PERRL/EOMI, Pharynx Normal Respiratory: Lungs Clear, No Respiratory Distress Cardiovascular: Regular Rate, Rhythm, No Edema, No Murmur Gastrointestinal: Normal Bowel Sounds, Non Tender, Soft Extremity: Normal Inspection, No Pedal Edema Neurologic/Psychiatric: Alert, Normal Mood/Affect, Disoriented Skin: Normal Color, Warm/Dry Results Results/Procedures Labs Laboratory Tests 02/15/22 00:45 Patient resulted labs reviewed. Imaging: Reviewed Imaging Report Assessment/Plan Admission Diagnosis Closed impacted left hip fracture Admission Status: Inpatient Order (span 2 midnights) Reason for Inpatient Admission: Hip surgery Assessment and Plan Closed impacted left hip fracture Fall from ground level Hip imaging consistent with impacted left subcapital femur fracture Orthopedic surgery consulted s/p left hip repair 02/15 Incentive spirometer PT/OT Ambulation Pain regimen Bowel regimen HTN Dementia Continue home meds T2DM Sliding scale insulin DVT prophylaxis: Lovenox Diagnosis/Problems Diagnosis/Problems (1) Closed impacted fracture of left hip Status: Acute Qualifiers: Encounter type: initial encounter Qualified Codes: S72.092A - Other fracture of head and neck of left femur, initial encounter for closed fracture (2) Fall on same level Status: Acute Qualifiers: Encounter type: initial encounter Qualified Codes: W18.30XA - Fall on same level, unspecified, initial encounter (3) Dementia Status: Chronic (4) Hypertension Status: Chronic (5) Type 2 diabetes mellitus Status: Chronic (6) Debility Status: Acute DINA VELASCO MD Feb 15, 2022 18:28
[2022-02-15] MEDS: inSUlin ASPART (NovoLOG) 1 UNIT/0.01 ML (CHARGE PER UNIT) SC SCH (20:08)
[2022-02-15] MEDS: SENNOSIDES 8.6 MG (SENOKOT) TAB PO SCH (20:33)
[2022-02-15] MEDS: CLINDAMYCIN 900 MG/50 ML IVPB 50 ML IV SCH (21:58)
--- NOTE | 2022-02-15 22:40 | OPERATIVE REPORT ---
DATE OF SERVICE: 02/15/2022 PREOPERATIVE DIAGNOSIS: Closed displaced left femoral neck fracture. POSTOPERATIVE DIAGNOSIS: Closed displaced left femoral neck fracture. PROCEDURE: Left hip bipolar replacement. SURGEON: Carlos A Easley MD ICT ACCOUNT MANAGER: Hugo Washington, who assisted throughout the procedure and closed the incision. ANESTHESIA: General endotracheal by Laura Kauffman CRNA. ESTIMATED BLOOD LOSS: 100 mL. DRAINS: None. COMPLICATIONS: None. POSTOPERATIVE PLAN: Weightbearing as tolerated with hip precautions, left lower extremity. MATERIALS: Maggi/Synthes pressfit 6 stem with a 1.5 mm neck and 47 mm liner. The patient was transferred to the recovery room awake and in stable condition. STATEMENT OF MEDICAL NECESSITY: The patient is a 77[facility]-old [facility] resident, who presented from an outside facility and was found to have a left femoral neck fracture. In order to maintain what mobility he had, the patient's caregiver elected to proceed with surgical intervention. DESCRIPTION OF PROCEDURE: After risks and benefits of procedure were discussed and questions were answered, informed consent was signed and placed on chart. The operative site was confirmed in the preoperative holding area initialed by the surgeon. The patient was then transferred to the operating room and after adequate levels of general endotracheal anesthetic were obtained, a timeout was called, confirming the operative site. The patient was carefully placed in the right lateral decubitus position, being careful to place an axillary roll and pad all bony prominences. The left hip and lower extremity were then prepped and draped in the usual sterile fashion. Standard lateral approach was utilized. Hemostasis was obtained with cautery. The iliotibial band was incised in line with the incision. The abductor tendon was released, leaving 2 cm cuff for later reattachment. Hip capsulotomy was performed. The femoral neck cutting guide was placed and the femoral neck cut was made at the proper level. The femoral head was removed and sized to a size 47. The femoral canal was then prepared first with a box chisel followed by the T-handle reamer and sequential broaches up to a size 6. Size 6 provided excellent fill. This was then trialed in a 1.5 with a 47-liner provided excellent reduction with no impingement, full range of motion with no instability noted in any plane. The hip was then redislocated. The joint was irrigated copiously. No loose bodies were noted in the acetabulum. The canal was irrigated and the stem was placed in 15 degrees of anteversion with good purchase obtained. The neck was then irrigated and the head liner construct was placed. This was stable. The hip was then reduced after inspecting for any loose bodies. After reduction, the hip was taken through range of motion with full baseline motion noted with no impingement noted and no instability noted in any plane. The joint was further irrigated. The hip capsule and abductor were reapproximated with #5 Tevdek in [id number]-[id number] interrupted fashion. The wound was further irrigated. The iliotibial band was closed in a running fashion with #1 Vicryl. The wound was further irrigated, 0 Vicryl was used to deep subcutaneous layer, 2-0 Vicryl for the superficial subcutaneous layer, lena used on the skin. A soft dressing was applied. The patient was transferred to the recovery room awake and in stable condition. Job ID: [id number] DocumentID: [id number] Dictated Date: 02/15/2022 15:10:48 Water Pollution Control Inspector Date: 02/15/2022 22:39:59 Dictated By: CARLOS A EASLEY MD
[2022-02-16] MEDS: LACTATED RINGERS 1,000 ML IV SCH ×3 (04:03→20:51)
[2022-02-16 04:30] VITALS: BP 110/61
[2022-02-16] MEDS: inSUlin ASPART (NovoLOG) 1 UNIT/0.01 ML (CHARGE PER UNIT) SC SCH ×4 (05:57→20:40)
[2022-02-16] MEDS: CLINDAMYCIN 900 MG/50 ML IVPB 50 ML IV SCH (06:04)
[2022-02-16 06:09] LABS: HEMOGLOBIN 9.7 g/dL (13.3-17.7)
[2022-02-16 06:33] LABS: POTASSIUM 4.6 MMOL/L (3.6-5.0)
[2022-02-16 06:34] LABS: CALCIUM 8.2 MG/DL (8.5-10.1)
--- NOTE | 2022-02-16 06:34 | Progress Note ---
Standard Progress Note Progress Notes/Assess & Plan Date Seen by a Provider: Feb 16, 2022 Time Seen by a Provider: 06:33 Progress/Assessment & Plan patient seen and examined plan for left hip bipolar replacement later today Final Diagnosis resting radiograph--HW well positioned without fracture Vital Signs Date Time Temp Pulse Resp B/P (MAP) Pulse Ox O2 Delivery O2 Flow Rate FiO2 02/16/22 04:30 38.0 93 20 110/61 (77) 92 Room Air 02/15/22 23:56 37.5 95 18 104/70 (81) 97 Room Air 02/15/22 20:09 Room Air 02/15/22 19:49 37.1 96 18 113/75 (88) 94 Room Air 02/15/22 16:34 36.5 73 18 123/68 (86) 93 Room Air 02/15/22 16:20 Room Air 02/15/22 16:20 36.8 18 136/75 (95) 100 Room Air 02/15/22 16:10 Room Air 02/15/22 16:10 18 139/73 (95) 100 Room Air 02/15/22 16:06 Room Air 02/15/22 16:00 18 139/88 (105) 100 Room Air 02/15/22 15:59 Room Air 02/15/22 15:56 OxyMask 2.00 02/15/22 15:53 OxyMask 4.00 02/15/22 15:50 OxyMask 4.00 02/15/22 15:50 18 150/96 (114) 100 OxyMask 4.00 02/15/22 15:45 OxyMask 6.00 02/15/22 15:40 18 134/105 (115) 100 OxyMask 6.00 02/15/22 15:35 OxyMask 6.00 02/15/22 15:30 18 132/75 (94) 100 OxyMask 6.00 02/15/22 15:25 37.2 16 145/75 (98) 100 OxyMask 6.00 02/15/22 15:25 OxyMask 6.00 02/15/22 12:14 Room Air 02/15/22 11:26 37.1 67 18 126/72 (90) 94 02/15/22 09:08 36.4 70 18 128/70 (89) 96 02/15/22 07:58 36.1 76 17 119/74 97 Room Air I & O 02/16/22 07:00 Intake Total 150 ml Output Total 820 ml Balance -670 ml Laboratory Tests Test 02/15/22 20:05 02/16/22 05:18 02/16/22 05:36 Range/Units Glucometer 145 H 137 H 70-110 MG/DL Hemoglobin 9.7 #L 13.3-17.7 g/dL Hematocrit 28 L 40-54 % Sodium Level 138 135-145 MMOL/L Potassium Level 4.6 3.6-5.0 MMOL/L Chloride Level 109 H 98-107 MMOL/L L hip dressing intact s/p L hip bipolar NH return next weeks MELISSA EASLEY MD Feb 16, 2022 06:34
[2022-02-16 06:39] LABS: CREATININE SERUM 1.44 MG/DL (0.60-1.30)
[2022-02-16] MEDS ORDERED: MULTIVIT W/MINERALS TAB (THERAGRAN M) PO SCH (07:00)
[2022-02-16 07:43] VITALS: BP 127/72
--- NOTE | 2022-02-16 09:01 | Physical Therapy Evaluation ---
PT Evaluation-General Medical Diagnosis Admission Date Feb 15, 2022 at 03:17 Medical Diagnosis: left hip bipolar replacement Onset Date: Feb 15, 2022 Therapy Diagnosis Therapy Diagnosis: impaired mobility Height/Weight Height (Feet): 5 Height (Inches): 2.00 Weight (Pounds): 150 Precautions Precautions/Isolations: Fall Prevention, Standard Precautions Weight Bear Status Right Lower Extremity: Right Full Weight Bearing Left Lower Extremity: Left Partial Weight Bearing Referral Physician: Felix Reason for Referral: Evaluation/Treatment Medical History Pertinent Medical History: DM, Dementia, HTN, Renal Insufficiency Additional Medical History Past Medical History Hypertension Dementia Renal Failure Diabetes, Non-Insulin dep Blood Disorders: No Adverse Reaction/Blood Tranf: No Reviewed History: Yes Social History Home: Correction Prior Prior Level of Function SCALE: Activities may be completed with or without assistive devices. 7-Bmtzlutdqm-xlvpjyy completes the activity by him/herself with no assistance from a helper. 5-Set-up or Clean-up Assistance-helper sets up or cleans up; patient completes activity. [place] assists only prior to or following the activity. 4-Supervision or Touching Assistance-helper provides verbal cues and/or touching/steadying and/or contact guard assistance as patient completes activity. Assistance may be provided throughout the activity or intermittently. 3-Partial/Moderate Assistance-helper does LESS THAN HALF the effort. Gridley li fts, holds or supports trunk or limbs, but provides less than half the effort. 2-Substantial/Maximal Assistance-helper does MORE THAN HALF the effort. [place] lifts or holds trunk or limbs and provides more than half the effort. 5-Rnfbygyma-tccccb does ALL the effort. Patient does none of the effort to complete the activity. Or, the assistance of 2 or more helpers is required for the patient to complete the activity. If activity was not attempted, code reason: 7-Patient Refused. 9-Not Applicable-not attempted and the patient did not perform the activity before the current illness, exacerbation or injury. 10-Not Attempted due to Environmental Limitations-(lack of equipment, weather restraints, etc.). 88-Not Attempted due to Medical Conditions or Safety Concerns. unsure, doctor's note states that patient is a non-ambulator, patient states he does ambulate but he is confused too PT Evaluation-Current Subjective Patient in bed pre tx, agrees to PT, has unrated left hip pain Pt/Family Goals none stated Objective Patient Orientation: Person, Confused Transfers Roll Left to Right (QC): 1 Sit to Lying (QC): 1 Lying to Sitting/Side of Bed(Q: 1 Patient was dependent to sit to the side of the bed, he could not follow directions to perform seated exercises, attempted to stand multiple times but patient would throw himself backward onto the bed and lift his feet off the floor. Assessment/Needs Patient in bed post tx with nurse call, phone, tray, all needs met, bed alarm on. Patient has impaired mobility, has difficulty following directions and is confused. He was not able to stand. Rehab Potential: Poor PT Shelter Goals Shelter Goals PT Community Development Director Goals Time Frame: Feb 23, 2022 Roll Left & Right (QC): 2 Sit to Lying (QC): 2 Lying-Sitting on Side/Bed(QC): 2 Sit to Stand (QC): 2 Chair/Ofi-yu-Wxjhn Xfer(QC): 2 PT Plan Problem List Problem List: Activity Tolerance, Functional Strength, Safety, Balance, Gait, Transfer, Bed Mobility, ROM Treatment/Plan Treatment Plan: Continue Plan of Care Treatment Plan: Bed Mobility, Education, Functional Activity [place], Functional Strength, Gait, Safety, Therapeutic Exercise, Transfers Treatment Duration: Feb 23, 2022 Frequency: 6 times per week Estimated Hrs Per Day: .25 hour per day Patient and/or Family Agrees t: Yes Safety Risks/Education Patient Education: Correct Positioning, Safety Issues Teaching Recipient: Patient Teaching Methods: Demonstration, Discussion Response to Teaching: Reinforcement Needed Discharge Recommendations Plan Patient will perform bed mobility and transfer training, balance and endurance training, functional strengthening, gait training, and education, to improve functional mobility and independence at home. Therapy Discharge Recommendati: Other, See Comments (NH) Time/GCodes Time In: 827 Time Out: 839 Total Billed Treatment Time: 12 Total Billed Treatment 1 visit ERIK BENITEZ PT Feb 16, 2022 09:01
[2022-02-16] MEDS: amLODIPine 10 MG (NORVASC) TAB PO SCH (09:16)
[2022-02-16] MEDS: ENOXAPARIN 40 MG/0.4 ML (LOVENOX) SYR SC SCH (09:16)
[2022-02-16] MEDS: ACETAMINOPHEN 325 MG TABLET PO PRN (09:16)
[2022-02-16] MEDS: SENNOSIDES 8.6 MG (SENOKOT) TAB PO SCH ×2 (09:17→20:39)
[2022-02-16 11:31] VITALS: BP 121/63
--- NOTE | 2022-02-16 13:38 | Anesthesia-General Post-Op ---
General Patient Condition Mental Status/LOC: Same as Preop Cardiovascular: Satisfactory Nausea/Vomiting: Absent Respiratory: Satisfactory Pain: Controlled Complications: Absent Post Op Complications Complications None Follow Up Care/Instructions Patient Instructions None needed. Anesthesia/Patient Condition Patient Condition Patient is doing well, no complaints, stable vital signs, no apparent adverse anesthesia problems. No complications reported per nursing. EDGAR HOWE CRNA Feb 16, 2022 13:38
--- NOTE | 2022-02-16 13:42 | Progress Note - Hospitalist ---
Subjective HPI/CC On Admission Date Seen by Provider: Feb 16, 2022 Time Seen by Provider: 11:15 Kishan Ellsworth is a 77-year-old male with past medical history of hypertension, diabetes, dementia, recurrent falls, who presented after having a fall at his care home The staff heard him fall. He was brought to the ER by EMS. He is a poor historian. He is sleeping upon my arrival. He denies pain. He denies shortness of breath. He denies nausea. He is not hungry or thirsty. He has no complaints at this time. Subjective/Events-last exam He is laying in bed. He denies pain. He is not short of breath. He denies cough. He has no complaints. Objective Exam Vital Signs Vital Signs Date Time Temp Pulse Resp B/P (MAP) Pulse Ox O2 Delivery O2 Flow Rate FiO2 02/16/22 11:31 36.7 75 18 121/63 (82) 92 Room Air 02/15/22 15:56 2.00 Capillary Refill : Less Than 3 SecondsLess Than 3 Seconds General Appearance: No Apparent Distress, Chronically ill, Thin Respiratory: Lungs Clear, No Respiratory Distress Cardiovascular: Regular Rate, Rhythm, No Murmur Gastrointestinal: Normal Bowel Sounds, Non Tender, Soft Extremity: Normal Inspection, No Pedal Edema Neurologic/Psychiatric: Alert, Motor Weakness Skin: Normal Color, Warm/Dry Results/Procedures Lab Laboratory Tests 02/16/22 05:36 Patient resulted labs reviewed. Imaging: Reviewed Imaging Report Assessment/Plan Assessment and Plan Assess & Plan/Chief Complaint Closed impacted left hip fracture Fall from ground level Postoperative anemia due to expected blood loss Hip imaging consistent with impacted left subcapital femur fracture Orthopedic surgery consulted s/p left hip repair 02/15 Incentive spirometer PT/OT Ambulation Pain regimen Bowel regimen Monitor hemoglobin Transfuse for Hgb <7 Fever No evidence of infection Not septic Monitor CKD 3a Creatinine stable Monitor HTN Dementia Continue home meds T2DM Sliding scale insulin DVT prophylaxis: Lovenox Diagnosis/Problems Diagnosis/Problems (1) Closed impacted fracture of left hip Status: Acute Qualifiers: Encounter type: initial encounter Qualified Codes: S72.092A - Other fracture of head and neck of left femur, initial encounter for closed fracture (2) Fall on same level Status: Acute Qualifiers: Encounter type: initial encounter Qualified Codes: W18.30XA - Fall on same level, unspecified, initial encounter (3) Dementia Status: Chronic (4) Hypertension Status: Chronic (5) Type 2 diabetes mellitus Status: Chronic (6) Debility Status: Acute (7) Stage 3a chronic kidney disease (CKD) Status: Chronic (8) Fever Status: Acute (9) Acute postoperative anemia due to expected blood loss Status: Acute DINA VELASCO MD Feb 16, 2022 13:42
[2022-02-16 16:05] VITALS: BP 125/66
[2022-02-16] MEDS ORDERED: HALOPERIDOL 5 MG/ML (HALDOL) VIAL ONE (20:26)
[2022-02-16 20:27] VITALS: BP 143/77
[2022-02-16] MEDS ORDERED: HALOPERIDOL 5 MG/ML (HALDOL) VIAL IM ONE (20:30)
[2022-02-16] MEDS ORDERED: HALOPERIDOL 5 MG/ML (HALDOL) VIAL IM PRN (20:30)
[2022-02-16 23:29] VITALS: BP 128/84
[2022-02-17 03:39] VITALS: BP 119/67
[2022-02-17] MEDS: LACTATED RINGERS 1,000 ML IV SCH ×3 (04:51→20:55)
[2022-02-17] MEDS: inSUlin ASPART (NovoLOG) 1 UNIT/0.01 ML (CHARGE PER UNIT) SC SCH ×4 (05:09→20:36)
[2022-02-17 06:13] LABS: HEMOGLOBIN 9.2 g/dL (13.3-17.7)
[2022-02-17 06:19] LABS: POTASSIUM 4.1 MMOL/L (3.6-5.0)
[2022-02-17 06:20] LABS: CALCIUM 8.3 MG/DL (8.5-10.1)
[2022-02-17 06:24] LABS: CREATININE SERUM 1.22 MG/DL (0.60-1.30)
--- NOTE | 2022-02-17 06:38 | Progress Note ---
Standard Progress Note Progress Notes/Assess & Plan Date Seen by a Provider: Feb 17, 2022 Time Seen by a Provider: 06:37 Progress/Assessment & Plan patient seen and examined plan for left hip bipolar replacement later today Final Diagnosis no complaints Laboratory Tests Test 02/16/22 10:14 02/16/22 16:07 02/16/22 20:29 02/17/22 05:07 Range/Units Glucometer 136 H 115 H 121 H 128 H 70-110 MG/DL Test 02/17/22 05:28 Range/Units Hemoglobin 9.2 L 13.3-17.7 g/dL Hematocrit 27 L 40-54 % Sodium Level 139 135-145 MMOL/L Potassium Level 4.1 3.6-5.0 MMOL/L Chloride Level 107 98-107 MMOL/L Carbon Dioxide Level 22 21-32 MMOL/L Anion Gap 10 5-14 MMOL/L Blood Urea Nitrogen 17 7-18 MG/DL Creatinine 1.22 0.60-1.30 MG/DL Estimat Glomerular Filtration Rate 61 BUN/Creatinine Ratio 14 Glucose Level 132 H 70-105 MG/DL Calcium Level 8.3 L 8.5-10.1 MG/DL Vital Signs Date Time Temp Pulse Resp B/P (MAP) Pulse Ox O2 Delivery O2 Flow Rate FiO2 02/17/22 03:39 36.7 89 18 119/67 (84) 96 Room Air 02/16/22 23:29 37.0 81 18 128/84 (99) 94 Room Air 02/16/22 20:30 93 Room Air 02/16/22 20:27 71 18 143/77 (99) 91 Room Air 02/16/22 16:05 37.3 80 16 125/66 (85) 92 Room Air 02/16/22 11:31 36.7 75 18 121/63 (82) 92 Room Air 02/16/22 10:00 36.7 02/16/22 09:16 38.0 02/16/22 08:50 93 Room Air 02/16/22 07:43 38.0 90 18 127/72 (90) 93 Room Air I & O 02/17/22 07:00 Intake Total 400 ml Output Total 900 ml Balance -500 ml Left hip incision clean and dry s/p L hip bipolar await NH placement MELISSA EASLEY MD Feb 17, 2022 06:38
[2022-02-17] MEDS: SENNOSIDES 8.6 MG (SENOKOT) TAB PO SCH ×2 (07:50→20:32)
[2022-02-17] MEDS: amLODIPine 10 MG (NORVASC) TAB PO SCH (07:50)
[2022-02-17] MEDS: ENOXAPARIN 40 MG/0.4 ML (LOVENOX) SYR SC SCH (07:59)
[2022-02-17 08:03] VITALS: BP 141/74
[2022-02-17 12:00] VITALS: BP 128/65
[2022-02-17 15:46] VITALS: BP 129/62
--- NOTE | 2022-02-17 18:14 | Progress Note - Hospitalist ---
Subjective HPI/CC On Admission Date Seen by Provider: Feb 17, 2022 Time Seen by Provider: 12:15 Kishan Ellsworth is a 77-year-old male with past medical history of hypertension, diabetes, dementia, recurrent falls, who presented after having a fall at his correction The staff heard him fall. He was brought to the ER by EMS. He is a poor historian. He is sleeping upon my arrival. He denies pain. He denies shortness of breath. He denies nausea. He is not hungry or thirsty. He has no complaints at this time. Subjective/Events-last exam He is doing well today. He has no complaints. He denies pain. Objective Exam Vital Signs Vital Signs Date Time Temp Pulse Resp B/P (MAP) Pulse Ox O2 Delivery O2 Flow Rate FiO2 02/17/22 15:46 37.1 76 18 129/62 (84) 93 Room Air 02/15/22 15:56 2.00 Capillary Refill : Less Than 3 SecondsLess Than 3 Seconds General Appearance: No Apparent Distress, Chronically ill Respiratory: Lungs Clear, No Respiratory Distress Cardiovascular: Regular Rate, Rhythm, No Murmur Gastrointestinal: Normal Bowel Sounds, Soft Extremity: Normal Inspection, No Pedal Edema Neurologic/Psychiatric: Alert, Normal Mood/Affect Skin: Normal Color, Warm/Dry Results/Procedures Lab Laboratory Tests 02/17/22 05:28 Patient resulted labs reviewed. Imaging: Reviewed Imaging Report Assessment/Plan Assessment and Plan Assess & Plan/Chief Complaint Closed impacted left hip fracture Fall from ground level Postoperative anemia due to expected blood loss Hip imaging consistent with impacted left subcapital femur fracture Orthopedic surgery consulted s/p left hip repair 02/15 Incentive spirometer PT/OT Ambulation Pain regimen Bowel regimen Monitor hemoglobin Transfuse for Hgb <7 Delirium Reorient as needed As needed medications for agitation CKD 3a Creatinine stable Monitor HTN Dementia Continue home meds T2DM Sliding scale insulin DVT prophylaxis: Lovenox Fever, resolved Diagnosis/Problems Diagnosis/Problems (1) Closed impacted fracture of left hip Status: Acute Qualifiers: Encounter type: initial encounter Qualified Codes: S72.092A - Other fracture of head and neck of left femur, initial encounter for closed fracture (2) Fall on same level Status: Acute Qualifiers: Encounter type: initial encounter Qualified Codes: W18.30XA - Fall on same level, unspecified, initial encounter (3) Dementia Status: Chronic (4) Hypertension Status: Chronic (5) Type 2 diabetes mellitus Status: Chronic (6) Debility Status: Acute (7) Stage 3a chronic kidney disease (CKD) Status: Chronic (8) Fever Status: Acute (9) Acute postoperative anemia due to expected blood loss Status: Acute (10) Delirium Status: Acute DINA VELASCO MD Feb 17, 2022 18:14
[2022-02-17 19:28] VITALS: BP 122/71
[2022-02-17] MEDS: ACETAMINOPHEN 325 MG TABLET PO PRN (20:32)
[2022-02-17 23:47] VITALS: BP 143/71
[2022-02-18 04:24] VITALS: BP 134/68
[2022-02-18] MEDS: LACTATED RINGERS 1,000 ML IV SCH (04:48)
[2022-02-18] MEDS: inSUlin ASPART (NovoLOG) 1 UNIT/0.01 ML (CHARGE PER UNIT) SC SCH ×2 (05:46→11:27)
[2022-02-18 06:17] LABS: HEMOGLOBIN 9.1 g/dL (13.3-17.7)
[2022-02-18 07:48] VITALS: BP 164/77
[2022-02-18] MEDS: ENOXAPARIN 40 MG/0.4 ML (LOVENOX) SYR SC SCH (08:01)
[2022-02-18] MEDS: SENNOSIDES 8.6 MG (SENOKOT) TAB PO SCH (08:01)
[2022-02-18] MEDS: amLODIPine 10 MG (NORVASC) TAB PO SCH (08:01)
--- NOTE | 2022-02-18 09:32 | Discharge Inst-Skilled Nursing ---
Discharge Inst-Skilled NF Chief Complaint Kishan Ellsworth is a 77-year-old male with past medical history of hypertension, diabetes, dementia, recurrent falls, who presented after having a fall at his care home The staff heard him fall. He was brought to the ER by EMS. He is a poor historian. He is sleeping upon my arrival. He denies pain. He denies shortness of breath. He denies nausea. He is not hungry or thirsty. He has no complaints at this time. Consult/Follow Up/Orders Follow Up Appt.: With Dr Lester in 1 week. Skilled NF Admit to: Certification (SNF) I certify that SNF services are required to be given on an inpatient basis because of the above named patient's need for [facility] care on a continuing basis for the conditions(s) for which he/she was receiving inpatient hospital services prior to his/her transfer to the SNF. [facility] Facility Order: Nursing Services, Rehabilitation Attendant-Evaluate & Treat, Physical Therapy-Evaluate & Treat Oxygen Delivery Method: Room Air Discharge Diet: Soft Diet Daily Activity as Tolerated: Yes Resuscitation Status: Do Not Resuscitate New & Resume Previous Orders Toby Ribera Feb 18, 2022 09:26 TOBY RIBERA MD Feb 18, 2022 09:32
--- NOTE | 2022-02-18 10:05 | Physical Therapy Daily Note ---
PT Daily Note-Current Subjective Patient slightly combative, however, participates with PT. Mental Status Patient Orientation: Confused Attachments: Alvarado Catheter Transfers SCALE: Activities may be completed with or without assistive devices. 2-Hyssgfzwaq-xryptup completes the activity by him/herself with no assistance from a helper. 5-Set-up or Clean-up Assistance-helper sets up or cleans up; patient completes activity. May assists only prior to or following the activity. 4-Supervision or Touching Assistance-helper provides verbal cues and/or touching/steadying and/or contact guard assistance as patient completes activity. Assistance may be provided throughout the activity or intermittently. 3-Partial/Moderate Assistance-helper does LESS THAN HALF the effort. May lifts, holds or supports trunk or limbs, but provides less than half the effort. 2-Substantial/Maximal Assistance-helper does MORE THAN HALF the effort. May lifts or holds trunk or limbs and provides more than half the effort. 7-Vtdswwves-yibdxe does ALL the effort. Patient does none of the effort to complete the activity. Or, the assistance of 2 or more helpers is required for the patient to complete the activity. If activity was not attempted, code reason: 7-Patient Refused. 9-Not Applicable-not attempted and the patient did not perform the activity before the current illness, exacerbation or injury. 10-Not Attempted due to Environmental Limitations-(lack of equipment, weather restraints, etc.). 88-Not Attempted due to Medical Conditions or Safety Concerns. Lying to Sitting/Side of Bed(Q: 1 Sit to Stand (QC): 1 Chair/Tzz-sn-Hzvil Xfer(QC): 1 SPT bed to recliner Weight Bearing Right Lower Extremity: Right Full Weight Bearing Left Lower Extremity: Left Partial Weight Bearing Assessment Patient up in recliner with needs met. Patient, due to dementia, has difficulty with maintaining PWB left LE. PT Fusing Line Inspector Goals Long-Term Goals PT Fusing Line Inspector Goals Time Frame: Feb 23, 2022 Roll Left & Right (QC): 2 Sit to Lying (QC): 2 Lying-Sitting on Side/Bed(QC): 2 Sit to Stand (QC): 2 Chair/Jod-ts-Qeebq Xfer(QC): 2 PT Plan Treatment/Plan Treatment Plan: Continue Plan of Care Treatment Plan: Bed Mobility, Education, Functional Activity Americo, Functional Strength, Gait, Safety, Therapeutic Exercise, Transfers Treatment Duration: Feb 23, 2022 Frequency: 6 times per week Estimated Hrs Per Day: .25 hour per day Patient and/or Family Agrees t: Yes Time/GCodes Time In: 817 Time Out: 828 Total Billed Treatment Time: 11 Total Billed Treatment 1 visit FA 11 min EDWARD MCNEAL PT Feb 18, 2022 10:05
--- NOTE | 2022-02-18 11:31 | Discharge Summary ---
Diagnosis/Chief Complaint Date of Admission Feb 15, 2022 at 03:17 Date of Discharge Discharge Date: Feb 18, 2022 Admission Diagnosis Closed impacted left hip fracture Primary Care Carlos Lester DO Discharge Diagnosis (1) Closed impacted fracture of left hip Status: Acute (2) Fall on same level Status: Acute (3) Dementia Status: Chronic (4) Hypertension Status: Chronic (5) Type 2 diabetes mellitus Status: Chronic (6) Debility Status: Acute (7) Stage 3a chronic kidney disease (CKD) Status: Chronic (8) Fever Status: Acute (9) Acute postoperative anemia due to expected blood loss Status: Acute (10) Delirium Status: Acute Discharge Summary Discharge Physical Exam Allergies: Coded Allergies: Penicillins (Verified Allergy, Unknown, 07/18/20) Sulfa (Sulfonamide Antibiotics) (Verified Allergy, Unknown, 07/18/20) Vitals & I&Os Vital Signs Date Time Temp Pulse Resp B/P (MAP) Pulse Ox O2 Delivery O2 Flow Rate FiO2 02/18/22 10:59 0 Room Air 02/18/22 07:48 37.2 87 18 164/77 (106) 02/15/22 15:56 2.00 Hospital Course Labs (last 24 hrs) Laboratory Tests 02/17/22 16:18: Glucometer 132H 02/17/22 20:33: Glucometer 181H 02/18/22 05:42: Glucometer 111H 02/18/22 06:07: Hemoglobin 9.1L, Hematocrit 26L 02/18/22 11:11: Glucometer 116H Patient resulted labs reviewed. Pending Labs Laboratory Tests 02/18/22 05:42: Glucometer 111 02/18/22 06:07: Hemoglobin 9.1, Hematocrit 26 02/18/22 11:11: Glucometer 116 Imaging: Reviewed Imaging Report Discharge Home Medications: Active Scripts Active Reported Morphine Conc. 20mg/ml (Morphine Sulfate) 100 Mg/5 Ml (20 Mg/Ml) Solution 0.25 Ml PO EVERY 2 HOURS PRN Chlorhexidine Gluconate 0.12 % Mouthwash 15 Ml PO BID SWISH AND SPIT Tylenol Extra Strength (Acetaminophen) 500 Mg Tablet 500 Mg PO Q6H PRN Miralax (Polyethylene Glycol 3350) 17 Gram Powd.pack 17 Gm PO DAILY PRN Citalopram HBr (Citalopram Hydrobromide) 40 Mg Tablet 40 Mg PO DAILY Amlodipine Besylate 10 Mg Tablet 10 Mg PO DAILY Instructions to patient/family Please see electronic discharge instructions given to patient. Problem Qualifiers (1) Closed impacted fracture of left hip: Encounter type: initial encounter Qualified Codes: S72.092A - Other fracture of head and neck of left femur, initial encounter for closed fracture (2) Fall on same level: Encounter type: initial encounter Qualified Codes: W18.30XA - Fall on same level, unspecified, initial encounter TOBY RIBERA MD Feb 18, 2022 11:31
[2022-02-18 11:43] VITALS: BP 149/77
[2022-02-18 14:57] VITALS: BP 149/77
== END 2022-02-18 15:02 | DRG 522 ==
LOC: EDUNIT# 00:30 → ER 00:31 → 4TH 03:17
PROVIDERS: ADMIT Internal Medicine; ATTEND Family Medicine
PROC: 0SRS0JA Replacement of Left Hip Joint, Femoral Surface with Synthetic Substitute, Uncemented, Open Approach (ICD-10-PCS; principal; 2022-02-15 13:51)
DX: S72.012A Unspecified intracapsular fracture of left femur, initial encounter for closed fracture (principal); D62 Acute posthemorrhagic anemia; W18.30XA Fall on same level, unspecified, initial encounter; S00.01XA Abrasion of scalp, initial encounter; F03.90 Unspecified dementia, unspecified severity, without behavioral disturbance, psychotic disturbance, mood disturbance, and anxiety; R53.81 Other malaise; R50.9 Fever, unspecified; N18.31 Chronic kidney disease, stage 3a; I12.9 Hypertensive chronic kidney disease with stage 1 through stage 4 chronic kidney disease, or unspecified chronic kidney disease; E11.22 Type 2 diabetes mellitus with diabetic chronic kidney disease
CPT/HCPCS: 36415; 51702; 70450; 70486; 71250; 72125; 73060; 73090; 73501; 74176; 80048; 80053; 81000; 82947; 85014; 85018; 85025; 94664

== ENCOUNTER 2022-04-23 17:30 | Emergency (ER) | payer MEDICARE ==
[~2022-04-23 17:30] MED LIST changes: +CITA40TA13 PO; +MORP100S7 PO; +NFCHLORHGL PO; +POLY17PO6 PO
--- NOTE | 2022-04-23 17:33 | ED General ---
General Stated Complaint: L FOOT WOUND History of Present Illness Date Seen by Provider: Apr 23, 2022 Time Seen by Provider: 17:35 Initial Comments 77-year-old male [facility] Patient has a known diabetic left foot ulcer. retirement sent in because the report is getting worse. Patient sees wound care is not currently on any antibiotics. Patient has a history of dementia but they report that he seems more often normal. No reports of fever or chills. Patient complains of his feet hurting is his only complaint. This is chronic. He has no other complaints himself. Allergies and Home Medications Allergies Coded Allergies: Penicillins (Verified Allergy, Unknown, 07/18/20) Sulfa (Sulfonamide Antibiotics) (Verified Allergy, Unknown, 07/18/20) Patient Home Medication List Home Medication List Reviewed: Yes Acetaminophen (Tylenol Extra Strength) 500 Mg Tablet, 500 MG PO Q6H PRN for PAIN-MILD (1-4), (Reported) Entered as Reported by: MOY HUDDLESTON on 02/15/22 142 Amlodipine Besylate (Amlodipine Besylate) 10 Mg Tablet, 10 MG PO DAILY, (Reported) Entered as Reported by: KENYA BELLA on 04/20/21 0915 Cephalexin (Cephalexin) 500 Mg Tablet, 500 MG PO QID Prescribed by: KITTY MORRIS on 04/23/221913 Chlorhexidine Gluconate (Chlorhexidine Gluconate) 0.12 % Mouthwash, 15 ML PO BID, (Reported) Entered as Reported by: MOY HUDDLESTON on 02/15/22 142 Citalopram Hydrobromide (Citalopram HBr) 40 Mg Tablet, 40 MG PO DAILY, (Reported) Entered as Reported by: MOY HUDDLESTON on 02/15/22 142 Morphine Sulfate (Morphine Conc. 20mg/ml) 100 Mg/5 Ml (20 Mg/Ml) Solution, 0.25 ML PO EVERY 2 HOURS PRN for PAIN/DYSPNEA, (Reported) Entered as Reported by: MOY HUDDLESTON on 02/15/221423 Polyethylene Glycol 3350 (Miralax) 17 Gram Powd.pack, 17 GM PO DAILY PRN for CONSTIPATION-2ND LINE, (Reported) Entered as Reported by: MOY HUDDLESTON on 02/15/22 142 Review of Systems Review of Systems Constitutional: see HPI; No chills, No fever EENTM: no symptoms reported Respiratory: no symptoms reported Cardiovascular: no symptoms reported Gastrointestinal: no symptoms reported Musculoskeletal: see HPI Skin: see HPI Psychiatric/Neurological: No Symptoms Reported Hematologic/Lymphatic: No Symptoms Reported Past Wxahtjj-Pyhqsu-Ologig Hx Immunizations Up To Date First/Initial COVID19 Vaccinat: DECEMBER 2020 Second COVID19 Vaccination Serafin: DECEMBER 2020 Third COVID19 Vaccination Date: DECEMBER 2020 Seasonal Allergies Seasonal Allergies: No Past Medical History Surgery/Hospitalization HX: Unknown Surgeries: No Respiratory: No Cardiac: Yes Hypertension Neurological: Yes Dementia Genitourinary: Yes (Hernia in the scrotum) Renal Failure Gastrointestinal: Yes (Bilateral inguinal hernias) Musculoskeletal: No Endocrine: Yes Diabetes, Non-Insulin dep HEENT: No Cancer: No Psychosocial: No Integumentary: Yes (diabetic ulcers) Blood Disorders: No Adverse Reaction/Blood Tranf: No Family Medical History Heart Disease, Other Conditions/Hx Physical Exam Vital Signs Vital Signs - First Documented 04/23/22 18:23 Temp 36.5 Pulse 66 Resp 16 B/P (MAP) 102/47 (65) Pulse Ox 93 O2 Delivery Room Air Capillary Refill : Height, Weight, BMI Height: 5'2.00" Weight: 150lbs. oz. 68.812530ms; 22.45 BMI Method:Stated General Appearance: No Apparent Distress, Cachetic Respiratory: Lungs Clear, Normal Breath Sounds Cardiovascular: Regular Rate, Rhythm Gastrointestinal: Non Tender, Soft Extremity: Other (Swollen left foot that is chronic) Neurologic/Psychiatric: Alert, Normal Mood/Affect Skin: Other (Chronic diabetic ulcer heel left foot with purulent drainage, chronic skin changes left leg.) Focused Exam Lactate Level 04/23/22 17:50: Lactic Acid Level 0.87 Lactic Acid Level Laboratory Tests Test 04/23/22 17:50 Lactic Acid Level 0.87 MMOL/L (0.50-2.00) Procedures/Interventions Suture Size: 5-0 Progress/Results/Core Measures Suspected Sepsis SIRS Temperature: Pulse: Respiratory Rate: Laboratory Tests 04/23/22 17:50: White Blood Count 10.1 Blood Pressure / Mean: 04/23/22 17:50: Lactic Acid Level 0.87 Laboratory Tests 04/23/22 17:50: Platelet Count 363 04/23/22 18:25: Creatinine 1.36H, Total Bilirubin 0.8 Results/Orders Lab Results Laboratory Tests Test 04/23/22 17:50 04/23/22 18:25 Range/Units White Blood Count 10.1 4.3-11.0 10^3/uL Red Blood Count 3.50 L 4.30-5.52 10^6/uL Hemoglobin 11.6 L 13.3-17.7 g/dL Hematocrit 32 L 40-54 % Mean Corpuscular Volume 90 80-99 fL Mean Corpuscular Hemoglobin 33 25-34 pg Mean Corpuscular Hemoglobin Concent 37 H 32-36 g/dL Red Cell Distribution Width 13.4 10.0-14.5 % Platelet Count 363 130-400 10^3/uL Mean Platelet Volume 9.8 9.0-12.2 fL Immature Granulocyte % (Auto) 0 % Neutrophils (%) (Auto) 77 H 42-75 % Lymphocytes (%) (Auto) 16 12-44 % Monocytes (%) (Auto) 5 0-12 % Eosinophils (%) (Auto) 2 0-10 % Basophils (%) (Auto) 0 0-10 % Neutrophils # (Auto) 7.8 1.8-7.8 10^3/uL Lymphocytes # (Auto) 1.6 1.0-4.0 10^3/uL Monocytes # (Auto) 0.5 0.0-1.0 10^3/uL Eosinophils # (Auto) 0.2 0.0-0.3 10^3/uL Basophils # (Auto) 0.0 0.0-0.1 10^3/uL Immature Granulocyte # (Auto) 0.0 0.0-0.1 10^3/uL Lactic Acid Level 0.87 0.50-2.00 MMOL/L Sodium Level 135 135-145 MMOL/L Potassium Level 4.9 3.6-5.0 MMOL/L Chloride Level 101 98-107 MMOL/L Carbon Dioxide Level 21 21-32 MMOL/L Anion Gap 13 5-14 MMOL/L Blood Urea Nitrogen 18 7-18 MG/DL Creatinine 1.36 H 0.60-1.30 MG/DL Estimat Glomerular Filtration Rate 54 BUN/Creatinine Ratio 13 Glucose Level 89 70-105 MG/DL Calcium Level 8.6 8.5-10.1 MG/DL Corrected Calcium 9.1 8.5-10.1 MG/DL Total Bilirubin 0.8 0.1-1.0 MG/DL Aspartate Amino Transf (AST/SGOT) 18 5-34 U/L Alanine Aminotransferase (ALT/SGPT) 7 0-55 U/L Alkaline Phosphatase 103 40-136 U/L C-Reactive Protein 4.06 H <0.50 MG/DL Total Protein 6.7 6.4-8.2 GM/DL Albumin 3.4 3.2-4.5 GM/DL My Orders Orders - MARY ELLEN MORRISR L DO Foot 3 View Left (04/23/22 17:37) Cbc With Automated Diff (04/23/22 17:37) Comprehensive Metabolic Panel (04/23/22 17:37) Lactic Acid Analyzer (04/23/22 17:37) Procalcitonin (Pct) (04/23/22 17:37) Crp Fs (04/23/22 17:37) Ed Iv/Invasive Line Start (04/23/22 17:37) Cephalexin Capsule (Keflex Capsule) (04/23/22 19:15) Vital Signs/I&O 04/23/22 04/23/22 18:23 18:39 Temp 36.5 36.7 Pulse 66 65 Resp 16 16 B/P (MAP) 102/47 (65) 102/47 Pulse Ox 93 95 O2 Delivery Room Air Room Air Capillary Refill : Progress Note : Progress Note Patient with chronic diabetic foot ulcer with probable infection. Patient does not have any signs of sepsis. Patient with normal vital signs, labs do not show any significant findings. Patient to be started on Keflex and [facility] Departure Impression Primary Impression: Diabetic foot ulcer Qualified Codes: E13.621 - Other specified diabetes mellitus with foot ulcer; L97.429 - Non-pressure chronic ulcer of left heel and midfoot with unspecified severity Disposition: 01 HOME, SELF-CARE Condition: Stable Departure-Patient Inst. Referrals: SUSAN MELENDREZ DO (PCP/Family) Primary Care Physician Add. Discharge Instructions: Please follow-up with wound care and Dr. Ordoñez for management Scripts Cephalexin (Cephalexin) 500 Mg Tablet 500 MG PO QID, #20 TAB 0 Refills Prov: MARY ELLEN MORRISR L DO 04/23/22 TROY MORRISVOR L DO Apr 23, 2022 17:33
[2022-04-23 17:56] LABS: BASOPHILS % (AUTO) 0 % (0-10); EOSINOPHILS # (AUTO) 0.2 10^3/uL (0.0-0.3); EOSINOPHILS % (AUTO) 2 % (0-10); HEMATOCRIT 32 % (40-54); HEMOGLOBIN 11.6 g/dL (13.3-17.7); LYMPHOCYTES # (AUTO) 1.6 10^3/uL (1.0-4.0); LYMPHOCYTES % (AUTO) 16 % (12-44); MEAN CORPUSCULAR HEMOGLOBIN 33 pg (25-34); MEAN CORPUSCULAR HGB CONC 37 g/dL (32-36); MEAN CORPUSCULAR VOLUME 90 fL (80-99); MEAN PLATELET VOLUME 9.8 fL (9.0-12.2); MONOCYTES # (AUTO) 0.5 10^3/uL (0.0-1.0); MONOCYTES % (AUTO) 5 % (0-12); NEUTROPHILS # (AUTO) 7.8 10^3/uL (1.8-7.8); NEUTROPHILS % (AUTO) 77 % (42-75); PLATELET COUNT 363 10^3/uL (130-400); WHITE BLOOD COUNT 10.1 10^3/uL (4.3-11.0)
--- NOTE | 2022-04-23 18:07 | Diagnostic Imaging Report ---
INDICATION: Wound, marked chronic deformity left foot/ankle. TECHNIQUE: 3 views of the left foot CORRELATION STUDY: None FINDINGS: Marked chronic deformity about the ankle and foot. Chronic deformity about the osseous structures present. There is large soft tissue edema over the dorsal aspect of foot. Question ulcer at the posterior calcaneus. Truncation of the distal tuft of the toe. Prominent vascular calcification. IMPRESSION: 1. Marked chronic deformity about the left foot and hindfoot. Bony resorption of the distal tip of the great toe. Additional nic bony erosive change is not demonstrated. There is marked soft tissue swelling along the dorsal aspect of the foot. If further assessment for potential osteomyelitis is desired, MRI is recommended. Dictated by: Dictated on workstation # [id number]
[2022-04-23 19:05] LABS: BILIRUBIN,TOTAL 0.8 MG/DL (0.1-1.0); CALCIUM 8.6 MG/DL (8.5-10.1); CREATININE SERUM 1.36 MG/DL (0.60-1.30); POTASSIUM 4.9 MMOL/L (3.6-5.0); TOTAL PROTEIN 6.7 GM/DL (6.4-8.2)
[2022-04-23 19:06] LABS: ALBUMIN 3.4 GM/DL (3.2-4.5)
[2022-04-23] MEDS ORDERED: CEPH500T PO (19:14)
[2022-04-23] MEDS ORDERED: CEPHALEXIN 250 MG (KEFLEX) CAP PO ONE (19:15)
[2022-04-23 19:59] VITALS: BP 84/50
== END 2022-04-23 19:54 | disposition home or self-care (01) ==
LOC: EDUNIT# 17:30 → ER FS 17:32
DX: E11.621 Type 2 diabetes mellitus with foot ulcer (principal); L97.429 Non-pressure chronic ulcer of left heel and midfoot with unspecified severity; F03.90 Unspecified dementia, unspecified severity, without behavioral disturbance, psychotic disturbance, mood disturbance, and anxiety; Z88.0 Allergy status to penicillin; Z88.2 Allergy status to sulfonamides
CPT/HCPCS: 36415; 73630; 80053; 83605; 84145; 85025; 86141